=== PATIENT | male | born 1930 | race Two or more races ===

== ENCOUNTER 2016-10-04 09:30 | Emergency (ER) | payer MEDICARE ==
[~2016-10-04] VITALS: Ht 170.2 cm; Wt 101.6 kg
[2016-10-04] MEDS ORDERED: FLOM5CAP (10:03)
[2016-10-04] MEDS ORDERED: PROA1AER (10:03)
[2016-10-04] MEDS ORDERED: MECL-68 (10:03)
[2016-10-04] MEDS ORDERED: CLOP75TA2 (10:03)
[2016-10-04] MEDS ORDERED: OMEP20CA3 (10:03)
[2016-10-04] MEDS ORDERED: FURO40TA2 (10:03)
[2016-10-04] MEDS ORDERED: AMIO20TA (10:03)
[2016-10-04] MEDS ORDERED: LUTE20CA PO (10:03)
[2016-10-04] MEDS ORDERED: PRESCAP6 PO (10:03)
[2016-10-04] MEDS ORDERED: REFR0.5D8 OP (10:03)
[2016-10-04] MEDS ORDERED: NAME28CA (10:03)
[2016-10-04] MEDS ORDERED: POTA1TAB23 (10:03)
[2016-10-04] MEDS ORDERED: MELA5CHW PO (10:03)
[2016-10-04] MEDS ORDERED: ARIC10TA (10:03)
[2016-10-04] MEDS ORDERED: ATOR1TAB18 (10:03)
[2016-10-04] MEDS ORDERED: CELE1CAP7 (10:03)
[2016-10-04] MEDS ORDERED: FISH120012 PO (10:03)
[2016-10-04] MEDS ORDERED: FINA5TAB2 (10:03)
[2016-10-04] MEDS ORDERED: FLUO10CA9 (10:03)
[2016-10-04] MEDS ORDERED: OYSTER (10:03)
[2016-10-04] MEDS ORDERED: AMLO5TAB2 (10:03)
--- NOTE | 2016-10-04 10:40 | REP ---
Clinical: Trauma. Fall. Findings: Age-related atrophy and microvascular ischemic changes are appreciated. The ventricles and sulci are symmetric. Wang-white differentiation is maintained. There is no evidence for acute intracranial hemorrhage, mass/mass effect, pathology or infarction. No extra-axial fluid collection. Calvarium is intact. Paranasal sinuses and mastoid air cells are clear. Impression: Age related atrophy and microvascular ischemic changes. No acute intracranial hemorrhage, infarction, or mass/mass effect. Signed by Ezio Whitney MD 10/04/2016 10:32 A
[2016-10-04 11:19] LABS: MEAN CORPUSCULAR HEMOGLOBIN 33.1 pg (27.0-33.0); MEAN CORPUSCULAR HGB CONC 34.9 g/dl (32.0-36.5); MEAN CORPUSCULAR VOLUME 94.9 fl (80.0-96.0); PLATELET COUNT, AUTOMATED 128 k/mm3 (150-450); RED CELL DISTRIBUTION WIDTH 14.1 % (11.5-14.5); WHITE BLOOD COUNT 6.1 K/mm3 (4.0-10.0)
[2016-10-04 11:32] LABS: ANION GAP 4 MEQ/L (8-16); BLOOD UREA NITROGEN 20 MG/DL (7-18); CALCIUM LEVEL 7.9 MG/DL (8.8-10.2); CARBON DIOXIDE LEVEL 30 MEQ/L (21-32); CHLORIDE LEVEL 106 MEQ/L (98-107); CREATININE FOR GFR 1.14 MG/DL (0.70-1.30); GLOMERULAR FILTRATION RATE > 60.0 (>35); GLUCOSE, FASTING 126 MG/DL (83-110); POTASSIUM SERUM 4.4 MEQ/L (3.5-5.1); SODIUM LEVEL 140 MEQ/L (136-145)
[2016-10-04 11:49] LABS: BANDS 2 % (< 11); EOSINOPHILS 1 % (0-5)
[2016-10-04 11:50] LABS: ANISOCYTOSIS 1+
--- NOTE | 2016-10-04 12:18 | REP ---
Clinical: Chest pain . Comparison: None . Findings: Evidence of prior sternotomy. The mediastinum and cardiac silhouette are stable and within normal limits for portable technique. The lung coley are clear without acute consolidation, effusion, or pneumothorax. Skeletal structures are intact. Impression: No acute cardiopulmonary process appreciated. Signed by Ezio Whitney MD 10/04/2016 12:10 P
--- NOTE | 2016-10-04 12:19 | ECGEPIP ---
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
[2016-10-04 12:39] VITALS: BP 147/76
== END 2016-10-04 13:10 | disposition home or self-care (01) ==
LOC: EDBD 09:30 → M ED 10:24
DX: D69.6 Thrombocytopenia, unspecified (principal); W18.09XA Striking against other object with subsequent fall, initial encounter; Y92.129 Unspecified place in nursing home as the place of occurrence of the external cause; Y93.89 Activity, other specified; Y99.9 Unspecified external cause status; I65.23 Occlusion and stenosis of bilateral carotid arteries; I71.4 Abdominal aortic aneurysm, without rupture; Z86.73 Personal history of transient ischemic attack (TIA), and cerebral infarction without residual deficits; Z79.02 Long term (current) use of antithrombotics/antiplatelets; Z79.1 Long term (current) use of non-steroidal anti-inflammatories (NSAID); Z79.899 Other long term (current) drug therapy

== ENCOUNTER → 2016-10-15 | Outpatient (REF) | payer MEDICARE ==
[~2016-10-15] MED LIST: AMIO20TA; AMLO5TAB2; ARIC10TA; ATOR1TAB18; CELE1CAP7; CLOP75TA2; FINA5TAB2; FISH120012 PO; FLOM5CAP; FLUO10CA9; FURO40TA2; LUTE20CA PO; MECL-68; MELA5CHW PO; NAME28CA; OMEP20CA3; OYSTER; POTA1TAB23; PRESCAP6 PO; PROA1AER; REFR0.5D8 OP
[2016-10-15 11:15] LABS: MEAN CORPUSCULAR HEMOGLOBIN 32.9 pg (27.0-33.0); MEAN CORPUSCULAR HGB CONC 34.5 g/dl (32.0-36.5); MEAN CORPUSCULAR VOLUME 95.4 fl (80.0-96.0); PLATELET COUNT, AUTOMATED 131 k/mm3 (150-450); RED CELL DISTRIBUTION WIDTH 14.3 % (11.5-14.5); WHITE BLOOD COUNT 4.4 K/mm3 (4.0-10.0)
[2016-10-15 11:36] LABS: ALBUMIN 3.1 GM/DL (3.2-5.2); CALCIUM LEVEL 8.3 MG/DL (8.8-10.2); CREATININE FOR GFR 1.24 MG/DL (0.70-1.30); GLOMERULAR FILTRATION RATE 58.8 (>35); POTASSIUM SERUM 4.1 MEQ/L (3.5-5.1); TOTAL PROTEIN 6.2 GM/DL (6.4-8.2)
[2016-10-15 11:47] LABS: EOSINOPHILS 1 % (0-5)
[2016-10-15 11:48] LABS: ANISOCYTOSIS 1+
== END ==
PROVIDERS: ATTEND Physician Assistant
DX: E78.5 Hyperlipidemia, unspecified (principal); I10 Essential (primary) hypertension; F32.9 Major depressive disorder, single episode, unspecified

== ENCOUNTER → 2016-11-12 | Outpatient (CLI) | payer MEDICARE ==
--- NOTE | 2016-11-12 10:03 | REP ---
Abdominal aortic sonography: History: Abdominal aortic aneurysm without rupture. No comparison imaging. History of abdominal aneurysm measuring 3.[address] Sonographic findings: Exam quality is inhibited by patient body habitus and bowel gas. The abdominal aorta measures 2.6 x 2.8 cm in AP by transverse dimension respectively at the diaphragmatic hiatus. The aorta was obscured at the level of the renal artery origins. The infrarenal abdominal aorta is aneurysmally dilated measuring 3.1 x 3.6 cm in AP by transverse dimension respectively at mid aortic level. The distal aorta measures 1.8 x 2.4 cm. The common iliac arteries are not aneurysmal measuring 0.7 cm in AP dimension on each side. Impression: Infrarenal abdominal aortic aneurysm measuring 3.1 x 3.6 cm in AP by transverse dimension today. The aorta is obscured by bowel gas at the level of the renal arteries on today's study. Signed by Dimitrios Leung MD 11/12/2016 12:17 P
== END ==
LOC: M RAD 08:43
PROVIDERS: ATTEND Physician Assistant
DX: I71.4 Abdominal aortic aneurysm, without rupture (principal); I71.2 Thoracic aortic aneurysm, without rupture

== ENCOUNTER → 2016-12-10 | Outpatient (REF) | payer MEDICARE ==
[~2016-12-10] MED LIST changes: +AMIO200T; -AMIO20TA; -ARIC10TA; +ARIC1TAB2; -ATOR1TAB18; +ATOR80TA59; -MELA5CHW PO; +MELA5TAB20 PO; -PROA1AER; +PROAAER10
[2016-12-10 12:50] LABS: BLOOD UREA NITROGEN 22 MG/DL (7-18); GLOMERULAR FILTRATION RATE > 60.0 (>35)
== END ==
PROVIDERS: ATTEND Psychiatry & Neurology Neurology
DX: N18.9 Chronic kidney disease, unspecified (principal)

== ENCOUNTER → 2017-01-03 | Outpatient (REF) | payer MEDICARE | LOC: M LAB REF 12:45 | PROVIDERS: ATTEND Physician Assistant | DX: R19.5 Other fecal abnormalities (principal) ==

== ENCOUNTER → 2017-03-14 | Outpatient (CLI) | payer MEDICARE ==
--- NOTE | 2017-03-14 16:45 | REP ---
Chest x-ray: Two views: History: Shortness of breath. Comparison chest x-ray October 04, 2016. Findings: Median sternotomy wires and cardiac monitoring device are noted anteriorly. Heart is not felt to be enlarged. Pulmonary vasculature is not increased. Pleural angles are sharp. There are degenerative changes in the thoracic spine and the thoracic aorta as before. Impression: No acute disease. Prior sternotomy. Signed by Dimitrios Leung MD 03/14/2017 07:18 P
== END ==
LOC: M RAD 14:29
PROVIDERS: ATTEND Family Medicine
DX: R06.02 Shortness of breath (principal); Z98.890 Other specified postprocedural states
CPT/HCPCS: 71020; G0463

== ENCOUNTER 2017-07-14 11:28 | Inpatient (IN) | payer MEDICARE ==
[2017-07-14] MEDS: NS 500 ML IV (11:45)
[2017-07-14 11:48] LABS: BASO % 0.2 % (0.0-1.0); EOS # 0.1 10^3/uL (0.0-0.50); EOS % 1.5 % (0.0-3.0); HEMATOCRIT 42.1 % (42.0-52.0); HEMOGLOBIN 14.1 g/dl (14.0-18.0); LYMPH % 18.3 % (24.0-44.0); MEAN CORPUSCULAR HEMOGLOBIN 31.7 pg (27.0-33.0); MEAN CORPUSCULAR HGB CONC 33.5 g/dl (32.0-36.5); MEAN CORPUSCULAR VOLUME 94.6 fl (80.0-96.0); MONO # 1.7 10^3/uL (0.0-0.8); MONO % 33.3 % (0.0-5.0); NEUTROPHILS # 2.4 10^3/uL (1.8-7.7); NEUTROPHILS % 46.7 % (36.0-66.0); PLATELET COUNT, AUTOMATED 139 10^3/uL (150-450); RED BLOOD COUNT 4.45 10^6/uL (4.30-6.10); RED CELL DISTRIBUTION WIDTH 15.9 % (11.5-14.5); WHITE BLOOD COUNT 5.2 10^3/uL (4.0-10.0)
[2017-07-14 12:15] LABS: ANION GAP 6 MEQ/L (8-16); BLOOD UREA NITROGEN 23 MG/DL (7-18); CALCIUM LEVEL 8.3 MG/DL (8.8-10.2); CARBON DIOXIDE LEVEL 29 MEQ/L (21-32); CHLORIDE LEVEL 108 MEQ/L (98-107); CK-MB VALUE MASS 3.5 NG/ML (0.0-3.6); CPK CREATINE PHOSPHOKINASE 180 U/L (39-308); CREATININE FOR GFR 1.62 MG/DL (0.70-1.30); GLOMERULAR FILTRATION RATE 43.1 (>35); GLUCOSE, FASTING 100 MG/DL (70-100); MB/CK RELATIVE INDEX 1.94 (< OR =4); POTASSIUM SERUM 4.2 MEQ/L (3.5-5.1); SODIUM LEVEL 143 MEQ/L (136-145); TROPONIN I < 0.02 NG/ML (< 0.10)
[2017-07-14 12:25] LABS: INR 1.09; PROTHROMBIN TIME 14.3 SECONDS (12.4-14.5)
[2017-07-14 12:26] LABS: PARTIAL THROMBOPLASTIN TIME 30.6 SECONDS (26.8-37.9)
[2017-07-14] MEDS ORDERED: ONDANSETRON 4MG/2ML VIAL (J2405) IV (13:30)
[2017-07-14] MEDS: ACETAMINOPHEN TAB 650MG DOSE (2X325MG) PO (13:55)
[2017-07-14] MEDS ORDERED: IPRATROPIUM 0.5MG/ALBUTEROL 2.5MG INH SOL UD 3ML (DUONEB)(J7620) NEB (14:00)
[2017-07-14] MEDS ORDERED: LOPERAMIDE 2 MG CAP PO (14:00)
[2017-07-14] MEDS: HEPARIN SOD (PORCINE) 5000 UNITS/ML VIAL SC ×2 (15:30→21:59)
[2017-07-14] MEDS: MECLIZINE 25 MG TABLET PO (21:58)
[2017-07-14] MEDS: SERTRALINE HCL 25 MG TABLET PO (21:58)
[2017-07-14] MEDS: LACRILUBE (AKWA TEARS) OPHTH OINT 3.5 GM OU (21:59)
[2017-07-14] MEDS: DONEPEZIL 5 MG TAB PO (21:59)
[2017-07-14] MEDS: ATORVASTATIN 20 MG TAB PO (21:59)
[2017-07-15] MEDS: ADVAIR HFA 115/21MCG INHALER INH ×3 (00:23→21:15)
[2017-07-15] MEDS: HEPARIN SOD (PORCINE) 5000 UNITS/ML VIAL SC ×3 (06:07→21:22)
[2017-07-15 07:00] LABS: HEMATOCRIT 39.5 % (42.0-52.0); HEMOGLOBIN 13.3 g/dl (14.0-18.0); MEAN CORPUSCULAR HEMOGLOBIN 31.2 pg (27.0-33.0); MEAN CORPUSCULAR HGB CONC 33.7 g/dl (32.0-36.5); MEAN CORPUSCULAR VOLUME 92.7 fl (80.0-96.0); PLATELET COUNT, AUTOMATED 115 10^3/uL (150-450); RED BLOOD COUNT 4.26 10^6/uL (4.30-6.10); RED CELL DISTRIBUTION WIDTH 15.6 % (11.5-14.5); WHITE BLOOD COUNT 4.6 10^3/uL (4.0-10.0)
[2017-07-15 07:14] LABS: ANION GAP 9 MEQ/L (8-16); BLOOD UREA NITROGEN 22 MG/DL (7-18); CARBON DIOXIDE LEVEL 25 MEQ/L (21-32); CHLORIDE LEVEL 110 MEQ/L (98-107); CREATININE FOR GFR 1.14 MG/DL (0.70-1.30); GLOMERULAR FILTRATION RATE > 60.0 (>35); GLUCOSE, FASTING 92 MG/DL (70-100); MAGNESIUM LEVEL 2.2 MG/DL (1.8-2.4); SODIUM LEVEL 144 MEQ/L (136-145)
[2017-07-15] MEDS: CLOPIDOGREL 75 MG TAB PO (09:15)
[2017-07-15] MEDS: TAMSULOSIN 0.4 MG CAP PO (09:15)
[2017-07-15] MEDS: AMIODARONE 200 MG TAB (PACERONE) PO (09:15)
[2017-07-15] MEDS: MULTIVITAMINS/MINERALS THERAP 1 TAB PO (09:15)
[2017-07-15] MEDS: MEMANTINE 5MG TABLET (NAMENDA) PO (09:15)
[2017-07-15] MEDS: FINASTERIDE 5 MG TAB PO (09:15)
[2017-07-15] MEDS: FAMOTIDINE 20 MG TAB PO (09:15)
[2017-07-15] MEDS: MECLIZINE 25 MG TABLET PO ×2 (09:15→21:23)
[2017-07-15] MEDS: ASPIRIN 81 MG ENTERIC TAB PO (14:10)
[2017-07-15] MEDS: SERTRALINE HCL 25 MG TABLET PO (21:22)
[2017-07-15] MEDS: DONEPEZIL 5 MG TAB PO (21:22)
[2017-07-15] MEDS: ATORVASTATIN 20 MG TAB PO (21:23)
[2017-07-15] MEDS: LACRILUBE (AKWA TEARS) OPHTH OINT 3.5 GM OU (21:24)
[2017-07-16 05:48] LABS: HEMATOCRIT 38.7 % (42.0-52.0); HEMOGLOBIN 12.9 g/dl (14.0-18.0); MEAN CORPUSCULAR HGB CONC 33.3 g/dl (32.0-36.5); PLATELET COUNT, AUTOMATED 122 10^3/uL (150-450); RED BLOOD COUNT 4.16 10^6/uL (4.30-6.10); RED CELL DISTRIBUTION WIDTH 15.5 % (11.5-14.5); WHITE BLOOD COUNT 4.6 10^3/uL (4.0-10.0)
[2017-07-16] MEDS: HEPARIN SOD (PORCINE) 5000 UNITS/ML VIAL SC ×3 (05:56→22:21)
[2017-07-16 06:17] LABS: ANION GAP 7 MEQ/L (8-16); BLOOD UREA NITROGEN 20 MG/DL (7-18); CALCIUM LEVEL 7.8 MG/DL (8.8-10.2); CARBON DIOXIDE LEVEL 25 MEQ/L (21-32); CHLORIDE LEVEL 113 MEQ/L (98-107); CREATININE FOR GFR 0.95 MG/DL (0.70-1.30); GLOMERULAR FILTRATION RATE > 60.0 (>35); GLUCOSE, FASTING 93 MG/DL (70-100); MAGNESIUM LEVEL 2.1 MG/DL (1.8-2.4); SODIUM LEVEL 145 MEQ/L (136-145)
[2017-07-16] MEDS: ADVAIR HFA 115/21MCG INHALER INH ×2 (07:31→21:00)
[2017-07-16] MEDS: CLOPIDOGREL 75 MG TAB PO (08:11)
[2017-07-16] MEDS: MULTIVITAMINS/MINERALS THERAP 1 TAB PO (08:11)
[2017-07-16] MEDS: TAMSULOSIN 0.4 MG CAP PO (08:11)
[2017-07-16] MEDS: MEMANTINE 5MG TABLET (NAMENDA) PO (08:11)
[2017-07-16] MEDS: AMIODARONE 200 MG TAB (PACERONE) PO (08:12)
[2017-07-16] MEDS: FAMOTIDINE 20 MG TAB PO (08:12)
[2017-07-16] MEDS: ASPIRIN 81 MG ENTERIC TAB PO (08:12)
[2017-07-16] MEDS: FINASTERIDE 5 MG TAB PO (08:12)
[2017-07-16] MEDS: MECLIZINE 25 MG TABLET PO ×2 (08:12→22:12)
[2017-07-16] MEDS ORDERED: SLF 3 ML SYR IV (08:15)
[2017-07-16] MEDS ORDERED: ISOVUE-370 76% 100ML VIAL (Q9967) As Ordered (13:39)
[2017-07-16] MEDS: SLF 3 ML SYR IV ×2 (14:00→22:13)
[2017-07-16] MEDS: NS 1,000 ML IV (14:06)
[2017-07-16] MEDS: DONEPEZIL 5 MG TAB PO (22:12)
[2017-07-16] MEDS: SERTRALINE HCL 25 MG TABLET PO (22:12)
[2017-07-16] MEDS: ATORVASTATIN 20 MG TAB PO (22:12)
[2017-07-16] MEDS: LACRILUBE (AKWA TEARS) OPHTH OINT 3.5 GM OU (22:13)
[2017-07-16] MEDS: ACETAMINOPHEN TAB 650MG DOSE (2X325MG) PO (22:13)
[2017-07-17] MEDS: SLF 3 ML SYR IV (05:08)
[2017-07-17 05:48] LABS: HEMATOCRIT 37.1 % (42.0-52.0); HEMOGLOBIN 12.5 g/dl (14.0-18.0); MEAN CORPUSCULAR HEMOGLOBIN 31.4 pg (27.0-33.0); MEAN CORPUSCULAR HGB CONC 33.7 g/dl (32.0-36.5); MEAN CORPUSCULAR VOLUME 93.2 fl (80.0-96.0); PLATELET COUNT, AUTOMATED 112 10^3/uL (150-450); RED BLOOD COUNT 3.98 10^6/uL (4.30-6.10); RED CELL DISTRIBUTION WIDTH 15.4 % (11.5-14.5); WHITE BLOOD COUNT 4.8 10^3/uL (4.0-10.0)
[2017-07-17 06:04] LABS: ANION GAP 6 MEQ/L (8-16); BLOOD UREA NITROGEN 16 MG/DL (7-18); CALCIUM LEVEL 7.7 MG/DL (8.8-10.2); CARBON DIOXIDE LEVEL 27 MEQ/L (21-32); CHLORIDE LEVEL 110 MEQ/L (98-107); CREATININE FOR GFR 0.95 MG/DL (0.70-1.30); GLOMERULAR FILTRATION RATE > 60.0 (>35); GLUCOSE, FASTING 84 MG/DL (70-100); POTASSIUM SERUM 3.9 MEQ/L (3.5-5.1); SODIUM LEVEL 143 MEQ/L (136-145)
[2017-07-17] MEDS: HEPARIN SOD (PORCINE) 5000 UNITS/ML VIAL SC (06:36)
[2017-07-17] MEDS: ADVAIR HFA 115/21MCG INHALER INH (07:30)
[2017-07-17] MEDS: FAMOTIDINE 20 MG TAB PO (09:07)
[2017-07-17] MEDS: MULTIVITAMINS/MINERALS THERAP 1 TAB PO (09:07)
[2017-07-17] MEDS: ASPIRIN 81 MG ENTERIC TAB PO (09:07)
[2017-07-17] MEDS: FINASTERIDE 5 MG TAB PO (09:07)
[2017-07-17] MEDS: TAMSULOSIN 0.4 MG CAP PO (09:07)
[2017-07-17] MEDS: MEMANTINE 5MG TABLET (NAMENDA) PO (09:08)
[2017-07-17] MEDS: MECLIZINE 25 MG TABLET PO (09:08)
[2017-07-17] MEDS: CLOPIDOGREL 75 MG TAB PO (09:08)
[2017-07-17] MEDS: AMIODARONE 200 MG TAB (PACERONE) PO (09:08)
== END 2017-07-17 12:41 | DRG 68 ==
LOC: M PCU 07-15 12:10 → M ED 11:28 → M ED INP 13:23
DX: I65.21 Occlusion and stenosis of right carotid artery (principal); I12.9 Hypertensive chronic kidney disease with stage 1 through stage 4 chronic kidney disease, or unspecified chronic kidney disease; K21.9 Gastro-esophageal reflux disease without esophagitis; N18.3 Chronic kidney disease, stage 3 (moderate); N40.0 Benign prostatic hyperplasia without lower urinary tract symptoms; E78.5 Hyperlipidemia, unspecified; I25.10 Atherosclerotic heart disease of native coronary artery without angina pectoris; F03.90 Unspecified dementia, unspecified severity, without behavioral disturbance, psychotic disturbance, mood disturbance, and anxiety; I48.91 Unspecified atrial fibrillation; Z79.02 Long term (current) use of antithrombotics/antiplatelets; Z79.899 Other long term (current) drug therapy; Z96.651 Presence of right artificial knee joint; Z98.49 Cataract extraction status, unspecified eye

== ENCOUNTER 2017-08-04 13:07 | Outpatient (RCR) | payer MEDICARE | END 2017-08-16 | LOC: M ST 13:07 | DX: Z51.89 Encounter for other specified aftercare (principal); R47.02 Dysphasia | CPT/HCPCS: 92610 ==

== ENCOUNTER → 2018-03-18 | Outpatient (REF) | payer MEDICARE ==
[2018-03-18 12:14] LABS: ALBUMIN 3.1 GM/DL (3.2-5.2); ANION GAP 9 MEQ/L (8-16); BLOOD UREA NITROGEN 20 MG/DL (7-18); CALCIUM LEVEL 8.2 MG/DL (8.8-10.2); CARBON DIOXIDE LEVEL 28 MEQ/L (21-32); CHLORIDE LEVEL 110 MEQ/L (98-107); CREATININE FOR GFR 1.17 MG/DL (0.70-1.30); GLOMERULAR FILTRATION RATE > 60.0 (>35); GLUCOSE, FASTING 91 MG/DL (70-100); PHOSPHORUS LEVEL 3.4 MG/DL (2.5-4.9); POTASSIUM SERUM 4.3 MEQ/L (3.5-5.1); SODIUM LEVEL 147 MEQ/L (136-145)
== END ==
DX: I50.32 Chronic diastolic (congestive) heart failure (principal)
CPT/HCPCS: 80069

== ENCOUNTER 2018-04-03 19:19 | Emergency (ER) | payer MEDICARE ==
[2018-04-03 20:29] LABS: BASO % 0.1 % (0.0-1.0); EOS # 0.1 10^3/uL (0.0-0.50); EOS % 1.1 % (0.0-3.0); HEMATOCRIT 41.4 % (42.0-52.0); HEMOGLOBIN 13.8 g/dl (13.5-17.5); IMMATURE GRANULOCYTE % 0.4 % (0-3.0); LYMPH # 0.9 10^3/uL (1.5-4.5); LYMPH % 11.6 % (24.0-44.0); MEAN CORPUSCULAR HEMOGLOBIN 31.6 pg (27.0-33.0); MEAN CORPUSCULAR HGB CONC 33.3 g/dl (32.0-36.5); MEAN CORPUSCULAR VOLUME 94.7 fl (80.0-96.0); MONO % 43.8 % (0.0-5.0); NEUTROPHILS # 3.4 10^3/uL (1.8-7.7); PLATELET COUNT, AUTOMATED 132 10^3/uL (150-450); RED BLOOD COUNT 4.37 10^6/uL (4.30-6.10); RED CELL DISTRIBUTION WIDTH 16.1 % (11.5-14.5)
[2018-04-03 20:48] LABS: ANION GAP 8 MEQ/L (8-16); BLOOD UREA NITROGEN 27 MG/DL (7-18); C REACTIVE PROTEIN QUANTITATIV 4.61 MG/DL (0.00-0.30); CARBON DIOXIDE LEVEL 27 MEQ/L (21-32); CHLORIDE LEVEL 108 MEQ/L (98-107); CREATININE FOR GFR 1.28 MG/DL (0.70-1.30); GLOMERULAR FILTRATION RATE 56.5 (>35); GLUCOSE, FASTING 134 MG/DL (70-100); POTASSIUM SERUM 3.8 MEQ/L (3.5-5.1); SODIUM LEVEL 143 MEQ/L (136-145)
[2018-04-03 20:49] LABS: MONO # 3.5 10^3/uL (0.0-0.8)
[2018-04-03 20:50] LABS: POSITIVE DIFF POS FLAG
[2018-04-03 20:54] LABS: ERYTHROCYTE SEDIMENTATION RATE 35 mm/hr (0-30)
[2018-04-03] MEDS: KETOROLAC 60 MG/2 ML VIAL (J1885) IM (21:29)
== END 2018-04-03 23:42 | disposition home or self-care (01) ==
LOC: M ED 19:19
DX: M70.62 Trochanteric bursitis, left hip (principal); I11.0 Hypertensive heart disease with heart failure; I50.9 Heart failure, unspecified; I48.91 Unspecified atrial fibrillation; F03.90 Unspecified dementia, unspecified severity, without behavioral disturbance, psychotic disturbance, mood disturbance, and anxiety; N40.0 Benign prostatic hyperplasia without lower urinary tract symptoms; F33.9 Major depressive disorder, recurrent, unspecified; M48.00 Spinal stenosis, site unspecified; Z86.73 Personal history of transient ischemic attack (TIA), and cerebral infarction without residual deficits; Z79.899 Other long term (current) drug therapy; Z79.82 Long term (current) use of aspirin
CPT/HCPCS: J1885

== ENCOUNTER 2018-04-28 03:48 | Emergency (ER) | payer MEDICARE, SELFPAY ==
[~2018-04-28 03:48] MED LIST changes: +ACET-683 PO; +ACET1TAB55 PO; +ADVA115A INH; +AMIO200T PO; -AMLO5TAB2; +AMLO5TAB6; +ASPI81TAEC PO; +DONETAB6 PO; +FINA5TAB2 PO; +FLOM0.4C39; +FLOM0.4C39 PO; -FLOM5CAP; +FURO20TA2 PO; +IMOD2TAB16 PO; +LIPI80TA PO; +LUTE20TA PO; +MECL1CHW2 PO; +MELA5TAB17 PO; +META48.54 PO; +NAME28CA PO; +OPTI0.5D5 OU; +OYSCTAB3 PO; +PERI2TAB PO; +PLAV1TAB2 PO; +POTA10TA16 PO; +PROAAER10 INH; +RANI300T PO; +SERT25TA88 PO; +SYST1SOL OU; +SYSTOIN OU; +VITMTA PO
[2018-04-28 03:53] VITALS: BP 163/77
[2018-04-28] MEDS ORDERED: ADV100INH INH (04:07)
== END 2018-04-28 04:58 | disposition home or self-care (01) ==
LOC: EDBD 03:48 → M ED 03:48
DX: K00.6 Disturbances in tooth eruption (principal); I10 Essential (primary) hypertension; E78.5 Hyperlipidemia, unspecified; F32.9 Major depressive disorder, single episode, unspecified; I25.10 Atherosclerotic heart disease of native coronary artery without angina pectoris; I48.91 Unspecified atrial fibrillation; Z79.899 Other long term (current) drug therapy; Z86.73 Personal history of transient ischemic attack (TIA), and cerebral infarction without residual deficits

== ENCOUNTER 2018-05-19 22:00 | Emergency (ER) | payer MEDICARE ==
[~2018-05-19] VITALS: Ht 175.3 cm; Wt 104.5 kg
[~2018-05-19 22:00] MED LIST changes: +ADV100INH INH
[2018-05-19] MEDS ORDERED: ACET1TAB55 PO (22:36)
[2018-05-19] MEDS ORDERED: TRAZ-160 PO (22:36)
[2018-05-19] MEDS ORDERED: PSYLPOW4 PO (22:36)
[2018-05-19] MEDS ORDERED: FURO40TA2 PO (22:36)
[2018-05-19] MEDS ORDERED: NAME10TA PO (22:36)
[2018-05-19] MEDS ORDERED: ASPI81TAEC PO (22:36)
[2018-05-19 23:13] LABS: BASO % 0.2 % (0.0-1.0); EOS # 0.2 10^3/uL (0.0-0.50); EOS % 2.5 % (0.0-3.0); HEMATOCRIT 39.1 % (42.0-52.0); HEMOGLOBIN 12.8 g/dl (13.5-17.5); LYMPH # 0.9 10^3/uL (1.5-4.5); LYMPH % 15.6 % (24.0-44.0); MEAN CORPUSCULAR HEMOGLOBIN 31.1 pg (27.0-33.0); MEAN CORPUSCULAR HGB CONC 32.7 g/dl (32.0-36.5); MEAN CORPUSCULAR VOLUME 95.1 fl (80.0-96.0); MONO % 42.1 % (0.0-5.0); NEUTROPHILS # 2.4 10^3/uL (1.8-7.7); NEUTROPHILS % 39.4 % (36.0-66.0); PLATELET COUNT, AUTOMATED 150 10^3/uL (150-450); RED BLOOD COUNT 4.11 10^6/uL (4.30-6.10)
--- NOTE | 2018-05-19 23:25 | REPVR ---
EXAM: CT Head Without Contrast EXAM DATE/TIME: 05/19/2018 10:43 PM CLINICAL HISTORY: 87 years old, male; Injury or trauma; Fall TECHNIQUE: Axial computed tomography images of the head/brain without contrast. All CT scans at this facility use at least one of these dose optimization techniques: automated exposure control; mA and/or kV adjustment per patient size (includes targeted exams where dose is matched to clinical indication); or iterative reconstruction. COMPARISON: CT Head without contrast 07/14/2017 11:43 AM FINDINGS: Brain: Prominence of the cerebral sulci consistent with mild atrophy. There is a 1 cm area of low density with associated atrophy right frontal lobe consistent with an area of old ischemic change. This is similar to the examination of 07/14/2017. Ventricles: Normal appearing ventricles. Bones/joints: There is no evidence of fracture. Sinuses: Clear paranasal sinuses. Mastoid air cells: Clear mastoid air cells. Soft tissues: Normal. Vasculature: There is calcification of the carotid siphon bilaterally. IMPRESSION: 1. Chronic ischemic changes. 2. No evidence of acute bleed. Electronically signed by: Ángel Coronel On 05/19/2018 23:24:54 PM
--- NOTE | 2018-05-19 23:37 | REPVR ---
EXAM: CT Cervical Spine Without Contrast EXAM DATE/TIME: 05/19/2018 10:43 PM CLINICAL HISTORY: 87 years old, male; Injury or trauma; Fall; Initial encounter; Blunt trauma TECHNIQUE: Axial computed tomography images of the cervical spine without intravenous contrast. All CT scans at this facility use at least one of these dose optimization techniques: automated exposure control; mA and/or kV adjustment per patient size (includes targeted exams where dose is matched to clinical indication); or iterative reconstruction. Coronal and sagittal reformatted images were created and reviewed. COMPARISON: No relevant prior studies available. FINDINGS: Vertebrae: The dens appears intact and the lateral masses of C1 appear symmetric. Discs/Spinal canal/Neural foramina: There is severe narrowing of the C4-C5, C5-C6, C6-C7 disc space and prominent posterior osteophyte formation at each level. There is severe osteophyte formation right and left C5, C6 and C7 neural foramina. Because of osteophyte formation there is central spinal canal stenosis C5-C6 and C6-C7. If there is any concern for injury to the cord an MRI scan would be a more sensitive indicator. There is prominent calcification and atherosclerotic plaque formation right and left carotid bifurcation. Soft tissues: There is no evidence of soft tissue swelling. IMPRESSION: 1. No evidence of acute fracture. 2. There is severe posterior osteophyte formation C4 through C7 causing significant impression on the cervical cord. If there is any concern of injury to the cord an MRI scan would be a more sensitive indicator. Electronically signed by: Ángel Coronel On 05/19/2018 23:37:14 PM
[2018-05-19 23:39] LABS: BLOOD UREA NITROGEN 24 MG/DL (7-18); CARBON DIOXIDE LEVEL 30 MEQ/L (21-32); CHLORIDE LEVEL 107 MEQ/L (98-107); CPK CREATINE PHOSPHOKINASE 162 U/L (39-308); CREATININE FOR GFR 1.38 MG/DL (0.70-1.30); FREE T4 1.28 NG/DL (0.76-1.46); GLOMERULAR FILTRATION RATE 51.8 (>35); GLUCOSE, FASTING 117 MG/DL (70-100); POTASSIUM SERUM 3.5 MEQ/L (3.5-5.1); SODIUM LEVEL 145 MEQ/L (136-145); TROPONIN I < 0.02 NG/ML (< 0.10)
[2018-05-19 23:41] LABS: INR 1.1; PROTHROMBIN TIME 14.3 SECONDS (12.1-14.4)
[2018-05-19 23:42] LABS: PARTIAL THROMBOPLASTIN TIME 31.4 SECONDS (25.4-37.6)
[2018-05-19 23:49] LABS: MONO # 2.5 10^3/uL (0.0-0.8)
[2018-05-20 00:15] VITALS: BP 147/65
--- NOTE | 2018-05-20 08:10 | REP ---
Clinical: Acute chest pain . Comparison: 07/14/2017 . Technique: PA and lateral. Findings: The mediastinum and cardiac silhouette are normal. The lung coley demonstrate chronic-appearing interstitial changes without acute consolidation, effusion, or pneumothorax. The skeletal structures are intact and normal. Evidence for prior sternotomy. Impression: Chronic-appearing interstitial changes. The colon Electronically Signed by Ezio Whitney MD 05/20/2018 08:01 A
--- NOTE | 2018-05-23 07:40 | ECGEPIP ---
Stationary ECG Study [facility] - ED Test Date: 2018-05-19 Pat Name: GIL SANTIAGO Department: Room: - Gender: M Vp Foundation: af : 1930 Requested By: NELLY Garcia Order Number: [id number] Reading MD: Mc Guzman Measurements Intervals [place] Rate: 79 P: MT: 0 QRS: -62 QRSD: 152 T: 89 QT: 432 QTc: 497 Interpretive Statements SINUS RHYTHM WITH OCCASIONAL ATRIAL AND VENTRICULAR PREMATURE COMPLEXES INTRAVENTRICULAR CONDUCTION DELAY SIMILAR TO 07/14/17 Electronically Signed On 05-23-2018 7:40:18 EST by Mc Guzman
== END 2018-05-20 00:50 | disposition home or self-care (01) ==
LOC: M ED 22:00 → EDBD 22:00 → M ED 05-20 00:50
DX: S09.90XA Unspecified injury of head, initial encounter (principal); W19.XXXA Unspecified fall, initial encounter; Y92.10 Unspecified residential institution as the place of occurrence of the external cause; Z79.01 Long term (current) use of anticoagulants; I48.91 Unspecified atrial fibrillation; I25.10 Atherosclerotic heart disease of native coronary artery without angina pectoris; I10 Essential (primary) hypertension; J45.909 Unspecified asthma, uncomplicated; F17.210 Nicotine dependence, cigarettes, uncomplicated; G30.9 Alzheimer's disease, unspecified; Z86.73 Personal history of transient ischemic attack (TIA), and cerebral infarction without residual deficits

== ENCOUNTER → 2018-06-10 | Outpatient (REF) | payer MEDICARE ==
[~2018-06-10] MED LIST changes: +FURO40TA2 PO; +NAME10TA PO; +PSYLPOW4 PO; +TRAZ-160 PO
[2018-06-10 10:31] LABS: BILIRUBIN,DIRECT 0.3 MG/DL (0.0-0.2); BILIRUBIN,TOTAL 0.9 MG/DL (0.2-1.0); TOTAL PROTEIN 6.6 GM/DL (6.4-8.2)
== END ==
PROVIDERS: ATTEND Physician Assistant
DX: I48.91 Unspecified atrial fibrillation (principal)

== ENCOUNTER → 2018-06-19 | Outpatient (REF) | payer MEDICARE ==
[2018-06-19 18:42] LABS: ALBUMIN 3.1 GM/DL (3.2-5.2); ALT/SGPT 30 U/L (12-78); BILIRUBIN,TOTAL 0.7 MG/DL (0.2-1.0); BLOOD UREA NITROGEN 21 MG/DL (7-18); CALCIUM LEVEL 8.1 MG/DL (8.8-10.2); CARBON DIOXIDE LEVEL 27 MEQ/L (21-32); CHLORIDE LEVEL 109 MEQ/L (98-107); CREATININE FOR GFR 1.21 MG/DL (0.70-1.30); GLOMERULAR FILTRATION RATE > 60.0 (>35); GLUCOSE, FASTING 106 MG/DL (70-100); POTASSIUM SERUM 4.3 MEQ/L (3.5-5.1); SODIUM LEVEL 144 MEQ/L (136-145); TOTAL PROTEIN 6.6 GM/DL (6.4-8.2)
== END ==
LOC: M SFHCPLAZ 16:09
PROVIDERS: ATTEND Physician Assistant
DX: I95.1 Orthostatic hypotension (principal); W19.XXXD Unspecified fall, subsequent encounter; Y99.8 Other external cause status
CPT/HCPCS: 36415; 80053; G0463

== ENCOUNTER → 2018-06-22 | Outpatient (REF) | payer MEDICARE ==
[2018-06-22 22:30] LABS: APPEARANCE, URINE CLEAR (CLEAR); BACTERIA, URINE AUTO NEGATIVE (NEGATIVE); BILIRUBIN, URINE AUTO NEGATIVE (NEGATIVE); BLOOD, URINE BLOOD NEGATIVE (NEGATIVE); COLOR, URINE YELLOW (YELLOW); GLUCOSE, URINE (UA) AUTO NEGATIVE (NEGATIVE); KETONE, URINE AUTO NEGATIVE (NEGATIVE); LEUKOCYTE ESTERASE, URINE AUTO NEGATIVE (NEGATIVE); MUCUS, URINE SMALL (NEGATIVE); NITRITE, URINE AUTO NEGATIVE (NEGATIVE); PROTEIN, URINE AUTO NEGATIVE (NEGATIVE); RBC, URINE AUTO 1 /HPF (0-3); SPECIFIC GRAVITY URINE AUTO 1.013 (1.002-1.035); SQUAMOUS EPITHELIAL CELL UR AU 0 /HPF (0-6); UROBILINOGEN, URINE AUTO 0.2 mg/dL (0.0-2.0); WBC, URINE AUTO 1 /HPF (0-3)
== END ==
PROVIDERS: ATTEND Internal Medicine Nephrology
DX: R41.82 Altered mental status, unspecified (principal)

== ENCOUNTER → 2018-09-09 | Outpatient (CLI) | payer MEDICARE ==
[~2018-09-09] MED LIST changes: +MECL1CHW PO; -MECL1CHW2 PO
--- NOTE | 2018-09-09 14:17 | REP ---
Chest two views HISTORY: Dyspnea Comparison: 06/09/2018 The lungs are clear. The heart is upper limits of normal in size. The pulmonary vasculature is normal in appearance. Degenerative change is present in the thoracic spine. IMPRESSION: No acute disease. Electronically Signed by Nazario Mccarthy MD 09/09/2018 02:08 P
== END ==
LOC: M SMT 13:23
PROVIDERS: ATTEND Physician Assistant
DX: M51.34 Other intervertebral disc degeneration, thoracic region (principal); R06.00 Dyspnea, unspecified

== ENCOUNTER → 2018-10-16 | Outpatient (CLI) | payer MEDICARE ==
[~2018-10-16] MED LIST changes: -TRAZ-160 PO; +TRAZ-252 PO
[2018-10-16 14:56] LABS: CALCIUM LEVEL 8.2 MG/DL (8.8-10.2); CREATININE FOR GFR 1.32 MG/DL (0.70-1.30); GLOMERULAR FILTRATION RATE 54.5 (>35); POTASSIUM SERUM 4.1 MEQ/L (3.5-5.1)
== END ==
LOC: M SMT 12:09
PROVIDERS: ATTEND Family Medicine
DX: R05 Cough (principal)

== ENCOUNTER 2018-11-27 12:50 | Inpatient (IN) | payer MEDICARE ==
[~2018-11-27] VITALS: Ht 170.2 cm; Wt 106.7 kg
[~2018-11-27 12:50] MED LIST changes: -MELA5TAB17 PO; +MELA5TAB31 PO; -OMEP20CA3; +OMEP20CA4
[2018-11-27] MEDS ORDERED: CETI10TA4 PO (13:48)
[2018-11-27] MEDS ORDERED: FLON1SPR (13:48)
[2018-11-27] MEDS ORDERED: TESS100C PO (13:48)
[2018-11-27] MEDS ORDERED: PRES10CA2 PO (13:48)
[2018-11-27] MEDS ORDERED: LOPE2TAB11 PO (13:48)
[2018-11-27] MEDS ORDERED: LUTE20CA8 PO (13:48)
[2018-11-27] MEDS ORDERED: BREO1INH INH (13:48)
--- NOTE | 2018-11-27 14:07 | REP ---
CT brain without contrast: History: Altered mental status. Comparison CT study is from October 01, 2018. CT findings: Digital preliminary ldr rn radiograph is unremarkable. On bone window settings, there is mild motion artifact. No bony destructive lesion is seen. No evidence of fracture. There is prominent vascular calcification in the distal carotid arteries bilaterally. Visualized paranasal sinuses are clear. No intraorbital abnormality is seen. There is moderate diffuse cerebral atrophy. There is no evidence of intracranial hemorrhage. There is a small zone of encephalomalacia in the right posterior frontal lobe again seen consistent with an old infarct. There is a small old lacunar infarct in the left thalamus. This is also unchanged. No acute infarction is seen. No extra-axial fluid collection or mass lesion . 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 Diffuse atrophy and vascular calcification. No acute intracranial abnormality. Electronically Signed by Dimitrios Leung MD 11/27/2018 08:13 P
--- NOTE | 2018-11-27 14:12 | REP ---
CT STUDY OF THE CERVICAL SPINE WITHOUT CONTRAST: HISTORY: Injury in a fall. Comparison CT study May 19, 2018. TECHNIQUE: Helical scanning is acquired and overlapping 2 mm high resolution axial images were generated and reviewed at bone and soft tissue window settings. Coronal and sagittal multiplanar re-formations images are generated. CT FINDINGS: There is no evidence of cervical spine element fracture. No skull base fracture is seen. Cervical vertebral body heights are preserved. Alignment is normal. Facet joints are normally aligned bilaterally at each cervical level on multiplanar re-formations images. There is no evidence of intraspinal or paraspinal hematoma. No extra vertebral abnormality is seen. There are severe degenerative spondylosis changes in the cervical spine with reversal of the normal cervical lordosis. The discs at C5-6 and C6-7 appear to be ankylosed due to advanced degenerative disc disease. Anterior posterior osteophytic ridging is seen. Narrowing is noted C4-5 and C7-T1 discs as well. There is central canal stenosis at C4-5, C5-6. Multilevel neural foraminal narrowing is appreciated. Vascular calcification is noted. Degenerative changes are seen at the articulation between the dens and the anterior arch of C1 with dystrophic calcification. There are osteoarthritic facet changes diffusely. The findings are unchanged when compared with the May 19, [address] study[address] IMPRESSION: Advanced degenerative spondylosis changes. Otherwise negative CT study of the cervical spine without contrast. No fracture seen. Electronically Signed by Dimitrios Leung MD 11/27/2018 08:13 P
--- NOTE | 2018-11-27 14:29 | REP ---
PELVIS: AP view of the pelvis demonstrates no fracture or dislocation. There are degenerative changes of the lower lumbar spine. There are degenerative changes of the sacroiliac joints and hips as well. IMPRESSION: Degenerative changes without fracture or dislocation. Electronically Signed by Bijan Wang MD 11/30/2018 01:04 P
[2018-11-27] MEDS ORDERED: MORPHINE 2 MG/ML 1ML SYRINGE (J2270) IV ONE (14:30)
--- NOTE | 2018-11-27 14:30 | REP ---
BILATERAL HIPS: AP and frog-leg views of bilateral hips performed. No fracture or dislocation is seen. There is mild joint space narrowing, subchondral sclerosis and spurring at each hip joint. IMPRESSION: Degenerative changes without fracture or dislocation. Electronically Signed by Bijan Wang MD 11/30/2018 01:04 P
--- NOTE | 2018-11-27 14:36 | REP ---
BILATERAL FEMURS: AP and lateral views of bilateral femurs performed. No fracture or dislocation is seen bilaterally. There are degenerative changes at the hips. There is a right knee prosthesis noted which appears grossly unremarkable. There are degenerative changes at the left knee joint. IMPRESSION: No fracture or dislocation. Electronically Signed by Bijan Wang MD 11/30/2018 01:05 P
--- NOTE | 2018-11-27 14:37 | REP ---
CHEST X-RAY: Single AP view. HISTORY: Altered mental status. COMPARISON STUDY: September 09, 2018. FINDINGS: The patient is status post prior median sternotomy. Oxygen delivery tubing and EKG electrodes are seen. A loop recorder is visible. Cardiomegaly is observed. The lungs are exposed at a relatively low level of inspiration. No infiltrate is seen. There is no evidence of pleural effusion or pulmonary edema. The aorta is calcific and tortuous. IMPRESSION: Cardiomegaly, prior sternotomy. Otherwise no acute disease. Electronically Signed by Dimitrios Leung MD 11/27/2018 08:15 P
[2018-11-27 14:39] LABS: BASO % 0.3 % (0.0-1.0); EOS # 0.1 10^3/uL (0.0-0.50); EOS % 0.8 % (0.0-3.0); HEMOGLOBIN 8.7 g/dl (13.5-17.5); LYMPH # 0.4 10^3/uL (1.5-4.5); LYMPH % 5.6 % (24.0-44.0); MEAN CORPUSCULAR HEMOGLOBIN 31.5 pg (27.0-33.0); MEAN CORPUSCULAR HGB CONC 32.2 g/dl (32.0-36.5); MEAN CORPUSCULAR VOLUME 97.8 fl (80.0-96.0); MONO # 1.9 10^3/uL (0.0-0.8); MONO % 29.2 % (0.0-5.0); NEUTROPHILS # 4.2 10^3/uL (1.8-7.7); NEUTROPHILS % 63.5 % (36.0-66.0); PLATELET COUNT, AUTOMATED 161 10^3/uL (150-450); RED BLOOD COUNT 2.76 10^6/uL (4.30-6.10); WHITE BLOOD COUNT 6.6 10^3/uL (4.0-10.0)
[2018-11-27 14:48] LABS: INR 1.16; PROTHROMBIN TIME 14.5 SECONDS (11.8-14.0)
[2018-11-27] MEDS ORDERED: ISOVUE-370 76% 100ML VIAL (Q9967) As Ordered ONE (14:49)
[2018-11-27 15:09] LABS: CK-MB VALUE MASS 4.2 NG/ML (<3.6); MB/CK RELATIVE INDEX 2.44 (< OR =4); TROPONIN I 0.44 NG/ML (< 0.10)
[2018-11-27 15:17] LABS: ALBUMIN 2.6 GM/DL (3.2-5.2); BILIRUBIN,DIRECT 0.5 MG/DL (0.0-0.2); BILIRUBIN,TOTAL 1.4 MG/DL (0.2-1.0); CALCIUM LEVEL 7.5 MG/DL (8.8-10.2); CREATININE FOR GFR 1.25 MG/DL (0.70-1.30); GLOMERULAR FILTRATION RATE 57.9 (>35); MB/CK RELATIVE INDEX 2.37 (< OR =4); POTASSIUM SERUM 3.9 MEQ/L (3.5-5.1); THYROID STIMULATING HORMONE 1.31 uIU/ML (0.358-3.740); TOTAL PROTEIN 5.9 GM/DL (6.4-8.2); TROPONIN I 0.44 NG/ML (< 0.10)
--- NOTE | 2018-11-27 15:45 | REP ---
CT CHEST WITH IV CONTRAST: TECHNIQUE: Axial contrast enhanced images from the thoracic inlet to the upper abdomen using 100 mL Isovue 370 intravenous contrast material with multiplanar reformations. There is mild bibasilar atelectasis/infiltrate inferiorly in the lung coley. There are small bilateral pleural effusions. There is no evidence of mediastinal, hilar, or chest wall lymphadenopathy. Atherosclerotic calcifications are seen of the thoracic aorta without aneurysm. There is mild cardiomegaly. There is no pericardial effusion. There are degenerative changes of the spine. No fracture i seen of the visualized osseous structures. IMPRESSION: Mild patchy bibasilar atelectasis/infiltrate in the lower lung zones with small bilateral pleural effusions. Mild cardiomegaly. No other acute finding. Electronically Signed by Bijan Wang MD 11/30/2018 01:06 P
--- NOTE | 2018-11-27 15:55 | REP ---
CT ABDOMEN AND PELVIS WITH IV CONTRAST: TECHNIQUE: Axial contrast enhanced images from the lung bases to the pubic symphysis using 100 mL Isovue 370 intravenous contrast material with multiplanar reformations. Liver demonstrates no mass or hematoma. There is biliary air present as well as a small amount of air in the pancreatic duct compatible with prior biliary procedure. Spleen is unremarkable as are the adrenal glands. No pancreatic mass is seen. No renal hematoma is seen. There are left renal cysts present. There is no hydronephrosis. There is no abdominal aortic aneurysm with scattered moderate atherosclerotic calcification. I see no adenopathy. There is no free air or free fluid. No bowel thickening is seen. Scattered diverticula are seen of the colon. There is no appendicitis. Anterior abdominal mesh is present. Calcified mesenteric lymph nodes are seen in the right lower quadrant. Urinary bladder is mildly distended and grossly unremarkable. There are degenerative changes of the spine. There is no fracture of the visualized osseous structures. A superficial soft tissue hematoma is seen in the gluteal region bilaterally, but more so to the left of midline, with irregular margins, measuring approximately 10.2 x 3.3 x 17.3 cm. IMPRESSION: No acute posttraumatic abnormality in the abdomen or pelvis. No free air or free fluid. No visceral organ injury. There is a superficial subcutaneous soft tissue hematoma in the gluteal region bilaterally, but more so to the left of midline measuring 10.2 x 3.3 x 17.3 cm. No fracture is seen of the visualized osseous structures. Electronically Signed by Bijna Wang MD 11/30/2018 01:06 P
[2018-11-27] MEDS ORDERED: traZODone 50 MG TAB PO PRN (16:30)
[2018-11-27] MEDS ORDERED: MOM 30ML SUSPENSION UDC PO PRN (16:30)
[2018-11-27] MEDS ORDERED: ACETAMINOPHEN 325 MG TAB PO PRN (16:30)
[2018-11-27] MEDS ORDERED: BENZONATATE 100 MG CAP PO PRN (16:30)
[2018-11-27] MEDS ORDERED: FUROSEMIDE 100 MG/10 ML VIAL (J1940) IV ONE (16:45)
[2018-11-27] MEDS ORDERED: ACETAMINOPHEN TAB 650MG DOSE (2X325MG) PO PRN (17:00)
[2018-11-27 20:03] VITALS: BP 154/85
--- NOTE | 2018-11-27 20:40 | HPEPDOC ---
[facility] Medical History & Physical Date of Admission Nov 27, 2018 Date of Service: Nov 27, 2018 Primary Care Physician: KARI HOFFMAN MD Attending Physician: LEISA CRAFT MD History and Physical CHIEF COMPLAINT: Back and buttock pain HISTORY OF PRESENT ILLNESS: Mikal is an 88-year-old male who presents today from the [facility] with a chief complaint of back and buttock pain. He sustained a mechanical fall this past November 22 while ambulating over dirt ground with the assistance of his walker. His walker "caught" on the ground causing him to fall backwards making initial contact with his back, hip, and rear. He states his head made secondary contact after whipping back. He states that he did not lose consciousness. His son, Turner witnessed the fall at their family reunion, Turner is the patient's healthcare proxy and his contact number is [phone]. His pain on Friday was a 4 out of 10 most intense around L4 extending bilaterally across the iliac crest. He describes the pain is dull and it has remained at 4 out of 10 to presentation today. Around noon today and nursing staff member at [facility] noticed significant bruising on his lower back and rear and initiated Mikal' presentation to the ED. Upon ED presentation extensive imaging was ordered that was all unremarkable with the exception of a hematoma on abdomen/pelvis CT. The ED consulted general surgery, Dr. Cool, who decided that surgery was not warranted at this time and to continue with supportive care. Of note, obtaining verbal history from patient provided some challenges due to patient's hearing loss as well as minor speech difficulties, likely due to previous CVA. The ED also ordered initial troponis that came back negative. The hospitalist team is admitting him to monitor status, largely because of he is currently on blood thinning medication. After prior consent was obtained from the patient, the ED ordered he received 2 blood transfusions. The ED also ordered troponins that came back negative. PAST MEDICAL HISTORY: 1. DEPRESSION 2. HTN 3. CA 4. H/O TIA/CVA 5. ALZHEIMERS DEMENTIA 6. ABDOMINAL AORTIC ANEURYSM 3.6 CM, ASCENDING AORTIC ANEURYSM 4.1 CM ON IMAGING 11/2015 7. MACULULAR DEGENERATION 8. DIASTOLIC CHF 9. SPINAL STENOSIS CERVICAL 10. HYPERLIPIDEMIA 11. OSTEOARTHRITIS 12. BPH 13. PAROXYSMAL ATRIAL FIBRILLATION 14. AAA 15. REACTIVE AIRWAY DISEASE 16. CARDIAC CATH WITH 3 VESSEL CAD. MILD HYPOKINESIA OF ANTERIOR APICAL WALL WITH EF OF 50%. ECHO 12/16/15: LEFT VENTRICULAR WALL THICKNESS, MILD TO MODERATELY INCREASED. NO OBVIOUS REGIONAL WALL MOTION ABNORMALITIES, EJECTION FRACTION 64%, STAGE I DIASTOLIC DYSFUNCTION AND MODERATE 17. AORTIC STENOSIS 18. CAROTID ULTRASOUND 07/2017: SIGNIFICANT L INTERNAL CAROTID ARTERY DISEASE; OCC R INTERNAL CAROTID AT ORIGIN; 35-50% STENOSIS OF EXTERNAL CAROTIDS NOORVIK 3 VESSEL DISEASE, PATENT GRAFTS 3 OF 3 PAST SURGICAL HISTORY: 1. Total right knee replacement, 2004 2. AAA bypass, 2007 3. Hernia repair, 2008 4. Carpal tunnel, 2008 5. Colon surgery, 2008 6. Cataract surgery, 2009 7. Triple bypass. 8. Cardiac catheterization SOCIAL HISTORY: Marital status: . Resides in: [facility] Children: 7 Living Employment: Retired Tobacco use: None ETOH: Rarely Illicit drug use: None IV drug use: None FAMILY HISTORY: Father: ischemic heart disease, CAD, hypertension, hyperlipidemia, blo od clots Mother: ischemic heart disease, hypertension Siblings: Brother- ischemic heart disease; Sisters (2)kidney disease ALLERGIES: Please see below. REVIEW OF SYSTEMS: CONSTITUTIONAL: Endorses- general weakness, chills, uses walker to assist with ambulation. Denies- recent change in weight, fatigue, fever, diaphoresis. HEENT: Endorses- recurrent headache (back of head), right temporal head pain, hard of hearing, nearsightedness, rhinorrhea, occasional dysphasia (pills catch sometimes). Denies- sore throat CARDIOVASCULAR:. Denies- chest pain, palpitations. RESPIRATORY:. Endorses- shortness of breath, productive cough (white). GASTROINTESTINAL: Denies- abdominal pain, nausea, vomiting, constipation, diarrhea. GENITOURINARY:. Endorses difficulty initiating urination, poor urinary stream. Denies dysuria SKIN: Extensive ecchymosis on the lower back, buttock region as well as bilateral forearms. NEUROLOGICAL: Denies numbness, paresthesias. PSYCHIATRIC:. Denies- anxiety or depression. ENDOCRINE: Denies- having any thyroid-related issues. HOME MEDICATIONS: Please see below. PHYSICAL EXAMINATION: VITAL SIGNS: Temperature 97.3, pulse 62, respiratory rate, 16, blood pressure, 164/69, pulse oximetry, 95% % on 2 L NC. GENERAL APPEARANCE: Alert, elderly male resting comfortably on side while in bed. HEENT:. Atraumatic, normocephalic; wears eyeglasses for nearsightedness; extremely hard of hearing, prominent scab on top of right ear; nares are patent CARDIOVASCULAR:. Regular rhythm with systolic machine-like sounding murmur auscultated at the right parasternal cardiac listening post. LUNGS: Shallow breathing with prolonged expiration time, diffuse wheezing throughout respiratory cycle that is more prominent with expiration. ABDOMEN: Ecchymosis on inspection of left lower quadrant, bowel sounds normoactive, dullness to percussion of right upper quadrant and left upper quadrant with higher frequency to percussion of bilateral lower abdominal quadrants. No tenderness to light palpation of all 4 quadrants with mild tenderness to deep palpation of all 4 quadrants. MUSCULOSKELETAL: Left foot deviated more laterally with respect to right foot on inspection. With respect 5 out of 5 muscle strength testing. Right upper extremity. Left upper extremity. Right lower extremity with 4 out of 5 muscle strength testing of left lower extremity. SKIN: Significant and diffuse ecchymosis from the level of T10 to the initial tuberosity bilaterally that extends around left flank into left lower quadrant of abdomen; prominent scar over sternum as well of significant scar superior to the umbilicus on inspection EXTREMITIES: 1+ pitting edema of lower extremities bilaterally, pedal edema bilaterally Prominent nodes on distal interphalangeal joints with arthritic- appearing deformities bilaterally; 2+ radial and posterior tibial arteries bilaterally NEUROLOGICAL: Cranial nerves 3, 4 and 6- delayed eye following during extraocular motion testing. Patient's speech at times was difficult to discern/inaudible; alert and oriented to self and location PSYCHIATRIC: Appropriate mood and affect LABORATORY DATA: See below. IMAGING: Abdomen/pelvis CT with IV contrast there is a superficial subcutaneous soft tissue hematoma in the gluteal region bilaterally, but more so to the left of midline measuring 10.23.317.3 cm. No fracture seen of the visualized osseous structures. No acute posttraumatic abnormality in the abdomen or pelvis. No free air or free fluid. No visceral organ injury. Pelvis x-ray showed degenerative changes without fracture or dislocation. Hip x-ray (AP and lateral- bilateral) showed degenerative changes without fracture or dislocation Head CT showed small old cortical infarct in the right posterior frontal lobe. Old lacunar infarct of the left thalamus. Diffuse atrophy and vascular calcification. No acute intracranial abnormality. Portable chest x-ray- showed cardiomegaly, prior sternotomy. Otherwise no acute disease. Femur x-ray showed no fracture or dislocation. Chest CT showed mild patchy bibasal or atelectasis/infiltrate in the lower lung zones with small bilateral pleural effusions. Mild cardiomegaly. No other acute finding. Cervical spine CT without contrast showed advanced degenerative spondylosis changes. Otherwise, negative CT study of the cervical spine without contrast. No fracture seen. MICROBIOLOGY: Please see below. ASSESSMENT & PLAN: 1. Hematoma likely secondary to mechanical fall sustained on 11/22/2018 -General surgery, Dr. Cool, was consult by the ED and decided at this time that surgery is not warranted and to continue with supportive care. Patient's baseline hemoglobin is around 13. It was measured today at 8.7. The ED ordered 2 units of blood to be transfused. Once the second transfusion is complete, we will recheck his H&H. As we provide supportive care throughout his stay, we will continue to his monitor H&H because of his use of blood thinning medications. -Hold patient's blood thinning medication (aspirin, Plavix). -Apply warm compresses to the buttock area, site of patient's hematoma, every 4 hours. The goal is to induce local vasodilation, hopefully causing some of the collected blood to move away from the hematoma site. -ED ordered initial troponins that were negative and, while cause of patient's fall is likely not cardiac in nature, repeat troponins will be ordered to nonetheless rule this out as a contributing factor to patient's fall Place the patient on fall risk and follow with physical therapy. Patient normally ambulates with the assistance of a walker, as well as a plastic calf, ankle, and foot brace left leg 2. Mildly decompensated diastolic congestive heart failure -Patient presented with bilateral lower extremity and pedal edema, shortness of breath, had an elevated BNP, and a chest x-ray that showed bilateral mild pleural effusions. Patient has history of diagnosed stage I diastolic dysfunction Patient was given 1 dose of Lasix and then will resume his home Lasix dosage. Also continue with potassium chloride administration to avoid hypokalemia. Patient will be placed on 2 L fluid restriction. The patient's I and O's will be strictly monitored and he will be weighed daily 3. Chronic kidney disease, stage III GFR measured today, 57.9. 4. BPH. Continue with home Flomax and finasteride 5. GERD -Continue with home famotidine 6. Depression -Continue with home sertraline and trazodone 7. Essential hypertension -Continue with home trazodone 8. Coronary artery disease -History of three-vessel coronary artery disease from cardiac catheterization 9. History of TIA/CVA -History of significant left internal carotid artery disease 10. Alzheimer's dementia -Continue with home amantadine and donepezil 11. Abdominal aortic aneurysm -Previous AAA of 3.6 cm 12. Macular degeneration 13. Cervical spinal stenosis 14. Hyperlipidemia -Continue with home atorvastatin 15. Osteoarthritis 16. Paroxysmal atrial fibrillation -Continue with amiodarone 17. Reactive airway disease. Vital Signs Vital Signs Date Time Temp Pulse Resp B/P (MAP) Pulse Ox O2 Delivery O2 Flow Rate FiO2 11/27/18 16:45 64 18 153/72 (99) 97 Room Air 11/27/18 14:05 97.3 11/27/18 13:00 2.0 Laboratory Data Labs 24H Laboratory Tests 2 11/27/18 14:18: Immature Granulocyte % (Auto) 0.6, White Blood Count 6.6, Red Blood Count 2.76L, Hemoglobin 8.7L, Hematocrit 27.0L, Mean Corpuscular Volume 97.8H, Mean Corpuscular Hemoglobin 31.5, Mean Corpuscular Hemoglobin Concent 32.2, Red Cell Distribution Width 17.3H, Platelet Count 161, Neutrophils (%) (Auto) 63.5, Lymphocytes (%) (Auto) 5.6L, Monocytes (%) (Auto) 29.2H, Eosinophils (%) (Auto) 0.8, Basophils (%) (Auto) 0.3, Neutrophils # (Auto) 4.2, Lymphocytes # (Auto) 0.4L, Monocytes # (Auto) 1.9H, Eosinophils # (Auto) 0.1, Basophils # (Auto) 0.0, Nucleated Red Blood Cells % (auto) 0.0, Prothrombin Time 14.5H, Prothromb Time International Ratio 1.16, Activated Partial Thromboplast Time 30.0, Anion Gap 9, Glomerular Filtration Rate 57.9, Calcium Level 7.5L, Aspartate Amino Transf (AST/SGOT) 36, Alanine Aminotransferase (ALT/SGPT) 31, Alkaline Phosphatase 62, Total Bilirubin 1.4H, Direct Bilirubin 0.5H, Total Creatine Kinase 169, Creatine Kinase MB 4.2H, Creatine Kinase MB Relative Index 2.44, Troponin I 0.44H, UG-Fnh-X-Type Natriuretic Peptide 4160H, Total Protein 5.9L, Albumin 2.6L, Albumin/Globulin Ratio 0.79L, Thyroid Stimulating Hormone (TSH) 1.310 11/27/18 14:28: POC Glucose (Misc Panel) 151H, POC Sodium (Misc Panel) 144, POC Potassium (Misc Panel) 3.8, POC Chloride (Misc Panel) 104, POC Total CO2 (Misc Panel) 24.0, POC Blood Urea Nitrogen (Misc Panel 26, POC Ionized Calcium (Misc Panel) 4.6, POC Creatinine (Misc Panel) 1.2, POC Hematocrit (Misc Panel) 23.0L CBC/BMP Laboratory Tests 11/27/18 14:18 Red Blood Count 2.76 L, Mean Corpuscular Volume 97.8 H, Mean Corpuscular Hemoglobin 31.5, Mean Corpuscular Hemoglobin Concent 32.2, Red Cell Distribution Width 17.3 H, Neutrophils (%) (Auto) 63.5, Lymphocytes (%) (Auto) 5.6 L, Monocytes (%) (Auto) 29.2 H, Eosinophils (%) (Auto) 0.8, Basophils (%) (Auto) 0.3, Neutrophils # (Auto) 4.2, Lymphocytes # (Auto) 0.4 L, Monocytes # (Auto) 1.9 H, Eosinophils # (Auto) 0.1, Basophils # (Auto) 0.0 Microbiology Microbiology 11/27/18 Blood Culture, Received Pending Home Medications Scheduled Amiodarone HCl (Amiodarone HCl) 200 Mg Tab, 200 MG PO DAILY Aspirin (Aspirin EC) 81 Mg Tabec, 81 MG PO DAILY Atorvastatin Calcium (Lipitor) 80 Mg Tab, 80 MG PO QHS Cetirizine HCl (Cetirizine HCl) 10 Mg Tablet, 10 MG PO DAILY Clopidogrel Bisulfate (Plavix) 75 Mg Tab, 75 MG PO DAILY Donepezil Hcl (Donepezil HCl Odt) 10 Mg Tab, 10 MG PO QHS Finasteride (Finasteride) 5 Mg Tab, 5 MG PO DAILY Fluticasone Propionate (Flonase Allergy Relief) 9.9 Ml [place].susp, 2 SPRAY NA DAILY Fluticasone/Vilanterol (Breo Ellipta 100-25 Mcg INH) 1 Each Blst.w.dev, 1 PUFF INH DAILY Furosemide (Furosemide) 40 Mg Tab, 40 MG PO DAILY Lutein (Lutein) 20 Mg Capsule, 1 CAP PO QPM Meclizine Hcl (Meclizine HCl) 25 Mg Chw, 25 MG PO BID Memantine HCl (Namenda) 10 Mg Tab, 10 MG PO BID Mineral Oil/Petrolatum,White (Systane Nighttime Eye Ointment) 1 Oin Oin, 1 OIN OU QHS APPLY 1 CM TO INSIDE LOWER LID Multivitamins (Thera M Plus Tablet) 1 Tab Tab, 1 TAB PO DAILY Potassium Chloride (Potassium Chloride) 10 Meq Tab, 10 MEQ PO DAILY TAKES AT 1200 WITH FOOD Ranitidine HCl (Ranitidine HCl) 300 Mg Tab, 1 TAB PO DAILY Sertraline HCl (Sertraline HCl) 25 Mg Tab, 25 MG PO QHS Tamsulosin HCl (Flomax) 0.4 Mg Cap, 0.4 MG PO DAILY Vit C/E/Zn/Coppr/Lutein/Zeaxan (Preservision Areds 2 Softgel) 1 Each Capsule, 1 EACH PO QPM Scheduled PRN Acetaminophen (Acetaminophen) 325 Mg Tab, 650 MG PO Q8H PRN for PAIN Albuterol Sulfate (Proair Hfa) 108 Mcg/Act Aer, 2 PUFF INH Q4H PRN for SHORTNESS OF BREATH Benzonatate (Tessalon Perle) 100 Mg Capsule, 100 MG PO TID PRN for COUGH Carboxymethylcellulos/Glycerin (Refresh Optive Eye Drops) 1 Russell Russell, 1 RUSSELL OU TID PRN for DRY EYES Loperamide HCl (Imodium A-D) 2 Mg Tablet, 2 MG PO QID PRN for DIARRHEA Melatonin (Melatonin) 5 Mg Tab, 5 MG PO QHS PRN for INSOMNIA TAKE WITH FOOD Psyllium Husk (Psyllium Husk) 1 Pow Pow, 1 TBS PO DAILY PRN for CONSTIPATION WITH A MEAL Trazodone HCl (Trazodone HCl) 50 Mg Tab, 50 MG PO QHS PRN for INSOMNIA Allergies Coded Allergies: No Known Allergies (Unverified , 04/03/18) A-FIB/CHADSVASC A-FIB History Current/History of A-Fib/PAF?: Yes Current PO Anticoag Therapy: Yes Age/Risk Factor Scoring CHADSVASC: CHADSVASC Response (Comments) Value Age Risk Factor Age >/= 75 years old 2 Gender Risk Factor Male 0 Hx of CHF Yes 1 Hx of HTN Yes 1 Hx of Stroke/TIA/or VTE Yes 2 Hx of Diabetes No 0 Hx of Vascular Disease Yes 1 Total 7 Treatment Other reason anticoagulant not: extensive hematoma formation and takes Plavix and aspirin at home KAITLIN ARELLANO PGY-1 Nov 27, 2018 18:51
--- NOTE | 2018-11-27 20:41 | ECGEPIP ---
[facility] - ED Test Date: 2018-11-27 Pat Name: GIL SANTIAGO Department: Room: - Gender: Male Pre Press Proofer: : [id number] Requested By: [place] Order Number: [id number] Reading MD: [place] Measurements Intervals [place] Rate: 62 P: CA: -1 QRS: QRSD: 156 T: 122 QT: 481 QTc: 492 Interpretive Statements PROBABLE NSR MARKED LEFT AXIS DEVIATION LAFB INTRAVENTRICULAR CONDUCTION DELAY NONSPECIFIC ST T WAVE CHANGES PROLONGED QTC CW 05/19/18 RATE DECREASED DECREASED ECTOPY NONSPECIFIC ST T WAVE CHANGES Electronically Signed on 11-27-2018 20:41:42 EDT by [place]
[2018-11-27] MEDS: MECLIZINE 25 MG TABLET PO SCH (21:43)
[2018-11-27] MEDS: DONEPEZIL 5 MG TAB PO SCH (21:43)
[2018-11-27] MEDS: MEMANTINE 5MG TABLET (NAMENDA) PO SCH (21:43)
[2018-11-27] MEDS: ATORVASTATIN 20 MG TAB PO SCH (21:44)
[2018-11-27] MEDS: SERTRALINE HCL 25 MG TABLET PO SCH (21:44)
[2018-11-27 22:39] LABS: HEMATOCRIT 30.8 % (42.0-52.0); HEMOGLOBIN 9.8 g/dl (13.5-17.5)
[2018-11-27 23:19] LABS: CK-MB VALUE MASS 3.7 NG/ML (<3.6); MB/CK RELATIVE INDEX 2.22 (< OR =4); TROPONIN I 0.54 NG/ML (< 0.10)
[2018-11-28] VITALS: BP 127/70
[2018-11-28 04:00] VITALS: BP 108/51
[2018-11-28 06:17] LABS: HEMATOCRIT 30.2 % (42.0-52.0); HEMOGLOBIN 9.7 g/dl (13.5-17.5); MEAN CORPUSCULAR HEMOGLOBIN 29.7 pg (27.0-33.0); MEAN CORPUSCULAR HGB CONC 32.1 g/dl (32.0-36.5); MEAN CORPUSCULAR VOLUME 92.4 fl (80.0-96.0); PLATELET COUNT, AUTOMATED 151 10^3/uL (150-450); RED BLOOD COUNT 3.27 10^6/uL (4.30-6.10); WHITE BLOOD COUNT 6.9 10^3/uL (4.0-10.0)
[2018-11-28 06:45] LABS: BLOOD UREA NITROGEN 23 MG/DL (7-18); CALCIUM LEVEL 7.4 MG/DL (8.8-10.2); CARBON DIOXIDE LEVEL 26 MEQ/L (21-32); CHLORIDE LEVEL 112 MEQ/L (98-107); CREATININE FOR GFR 1.08 MG/DL (0.70-1.30); GLOMERULAR FILTRATION RATE > 60.0 (>35); GLUCOSE, FASTING 96 MG/DL (70-100); MAGNESIUM LEVEL 2.1 MG/DL (1.8-2.4); POTASSIUM SERUM 3.5 MEQ/L (3.5-5.1); SODIUM LEVEL 148 MEQ/L (136-145)
[2018-11-28 06:49] LABS: CK-MB VALUE MASS 2.6 NG/ML (<3.6); TROPONIN I 0.59 NG/ML (< 0.10)
[2018-11-28 08:00] VITALS: BP 163/80
[2018-11-28] MEDS: CETIRIZINE (ZyrTEC) 10 MG TAB PO SCH (08:43)
[2018-11-28] MEDS: TAMSULOSIN 0.4 MG CAP PO SCH (08:43)
[2018-11-28] MEDS: FLUTICASONE PROP 0.05% NASAL SPRAY 16 GM (FLONASE) SCH (08:44)
[2018-11-28] MEDS: MULTIVITAMINS/MINERALS THERAP 1 TAB PO SCH (08:44)
[2018-11-28] MEDS: MECLIZINE 25 MG TABLET PO SCH ×2 (08:44→22:02)
[2018-11-28] MEDS: MEMANTINE 5MG TABLET (NAMENDA) PO SCH ×2 (08:44→22:02)
[2018-11-28] MEDS: FAMOTIDINE 20 MG TAB PO SCH (08:44)
[2018-11-28] MEDS: FINASTERIDE 5 MG TAB PO SCH (08:44)
[2018-11-28] MEDS: AMIODARONE 200 MG TAB (PACERONE) PO SCH (08:44)
--- NOTE | 2018-11-28 08:59 | REP ---
Thoracolumbar spine: Two views. History: Question compression fracture. Comparison is made with the CT imaging from November 27, 2018. Findings: Visualized thoracic and lumbar vertebral body heights are preserved. No fracture or collapse is seen. There is advanced degenerative spondylosis in the lumbar spine along with a levoconvex curvature. Degenerative discogenic spurring is seen in the lower thoracic spine as well. Vascular calcification is noted and ventral hernia repair sutures are visualized on the frontal view in the upper abdomen. Impression: No fracture or collapse seen. Degenerative spondylosis changes. Electronically Signed by Dimitrios Leung MD 11/28/2018 12:01 P
[2018-11-28] MEDS ORDERED: FUROSEMIDE 40 MG TAB PO SCH (09:00)
--- NOTE | 2018-11-28 09:01 | REP ---
Lumbar spine series: Five views. History: Concern for compression fracture. Comparison is made with the previous day's CT imaging. Findings: There is a levoconvex curve in the lumbar spine. Advanced degenerative disc disease is seen at each lumbar level. Pedicles and posterior elements are intact. Vertebral body heights are preserved. No fracture or collapse is appreciated. Vascular calcification is seen in a normal caliber aorta. There are surgical clips scattered in the abdomen. Contrast enhanced urinary bladder is seen in the pelvis. Impression: Scoliosis and advanced degenerative disc disease and facet arthropathy. No traumatic abnormality noted. Electronically Signed by Dimitrios Leung MD 11/28/2018 12:01 P
[2018-11-28 12:00] VITALS: BP 132/63
[2018-11-28] MEDS ORDERED: POTASSIUM CHLORIDE 10 MEQ SR TABLET PO SCH (12:00)
[2018-11-28 14:46] LABS: CK-MB VALUE MASS 2.8 NG/ML (<3.6); MB/CK RELATIVE INDEX 1.87 (< OR =4); TROPONIN I 0.52 NG/ML (< 0.10)
--- NOTE | 2018-11-28 15:11 | IPNPDOC ---
Subjective Date Seen The patient was seen on 11/28/18. Subjective Chief Complaint/HPI Mikal was seen and examined this morning while lying in bed. He denies any overnight events. He states his lower back, hip and buttock pain is similar to yesterday when he described it as dull and not too severe. He is eating and drinking without issue. He is using a bedside urinal and has yet to have a bowel movement. General: Denies: Chills Constitutional: Denies: Fever ENT: Denies: Head Aches Pulmonary: Denies: Dyspnea, Cough Cardiovascular: Denies: Chest Pain, Palpitations Gastrointestinal: Denies: Nausea, Vomiting, Abdominal Pain, Diarrhea, Constipation Genitourinary: Denies: Dysuria Neurological: Denies: Numbness, Other Symptoms (paresthesias) Objective Physical Examination General Exam: Positive: Alert, Cooperative, No Acute Distress Eye Exam: Negative: EOMI (minor delay following kelsey's finger) ENT Exam: Positive: Other ENT (hard of hearing) Neck Exam: Positive: Supple; Negative: JVD Chest Exam: Positive: Wheezing (. Diffuse), Diminished Heart Exam: Positive: Regular Rhythm, Normal S2, Murmurs (systolic machinelike murmur right parasternal cardiac listening post) Abdomen Exam: Positive: Normal bowel sounds, Soft; Negative: Tenderness Extremity Exam: Positive: Edema (lower extremity and pedal edema bilaterally), Normal pulses (2+ posterior tibial) Skin Exam: Positive: Other skin issue (large area of ecchymosis approximately 30 cm x 30 cm. It extends roughly from T9 to the initial tuberosities bilaterally, anterior to posterior. . It also covers width of dorsal body surface ) Neuro Exam: Positive: Strength at 5/5 X4 ext (, 4 out of 5 muscle strength testing of left lower extremity) Psych Exam: Positive: Oriented x 3; Negative: Anxiety Assessment /Plan Assessment 1. Hematoma likely secondary to mechanical fall sustained on 11/22/2018 Patient's baseline hemoglobin is around 13. After 2 transfusions were administered. Patient's hemoglobin improved to 9.8. His most recent hemoglobin measurement was 9.7. Consider administration of another unit of blood. As we provide supportive care throughout his stay, we will continue to his monitor H&H because of his use of blood thinning medications. -Hold patient's blood thinning medication (aspirin, Plavix). -Repeat troponins were abnormal and are trending up -Apply warm compresses to the buttock area, site of patient's hematoma, every 4 hours. The goal is to induce local vasodilation, hopefully causing some of the collected blood to move away from the hematoma site. Place the patient on fall risk and follow with physical therapy. Patient normally ambulates with the assistance of a walker, as well as a plastic calf, ankle, and foot brace left leg -General surgery, Dr. Cool, was consult by the ED and decided at this time that surgery is not warranted and to continue with supportive care. 2. Mildly decompensated diastolic congestive heart failure -Increase patient's diuretic administration to 40 mg twice a day of IV Lasix. Also continue with potassium chloride administration to avoid hypokalemia Patient will be placed on 2 L fluid restriction. The patient's I and O's will be strictly monitored and he will be weighed daily -Patient presented with bilateral lower extremity and pedal edema, shortness of breath, had an elevated BNP, and a chest x-ray that showed bilateral mild pleural effusions. Patient has history of diagnosed stage I diastolic dysfunction 3. Chronic kidney disease, stage III (resolved) -Patient's most recent GFR was greater than 60%. 4. BPH. Continue with home Flomax and finasteride 5. GERD -Continue with home famotidine 6. Depression -Continue with home sertraline and trazodone 7. Essential hypertension -Continue with home trazodone 8. Coronary artery disease -History of three-vessel coronary artery disease from cardiac catheterization 9. History of TIA/CVA -History of significant left internal carotid artery disease 10. Alzheimer's dementia -Continue with home amantadine and donepezil 11. Abdominal aortic aneurysm -Previous AAA of 3.6 cm 12. Macular degeneration 13. Cervical spinal stenosis 14. Hyperlipidemia -Continue with home atorvastatin 15. Osteoarthritis 16. Paroxysmal atrial fibrillation -Continue with amiodarone 17. Reactive airway disease. Plan/VTE VTE Prophylaxis Ordered?: Yes VS, I&O, 24H, Fishbone Vital Signs/I&O Vital Signs Date Time Temp Pulse Resp B/P (MAP) Pulse Ox O2 Delivery O2 Flow Rate FiO2 11/28/18 12:00 98.0 60 15 132/63 (86) 98 11/28/18 08:00 2.0 11/27/18 19:45 Nasal Cannula I&O- Last 24 Hours up to 6 AM 11/28/18 06:00 Intake Total 0 ml Output Total 650 ml Balance -650 ml Laboratory Data 24H LABS Laboratory Tests 2 11/27/18 22:12: Total Creatine Kinase 167, Creatine Kinase MB 3.7H, Creatine Kinase MB Relative Index 2.22, Troponin I 0.54#H 11/28/18 05:34: Total Creatine Kinase 130, Creatine Kinase MB 2.6, Creatine Kinase MB Relative Index 2.00, Troponin I 0.59H, Nucleated Red Blood Cells % (auto) 0.3H, Anion Gap 10, Glomerular Filtration Rate > 60.0, Blood Urea Nitrogen 23H, Creatinine 1.08, Sodium Level 148H, Potassium Level 3.5, Chloride Level 112H, Carbon Dioxide Level 26, Calcium Level 7.4L, Magnesium Level 2.1 11/28/18 13:49: Total Creatine Kinase 150, Creatine Kinase MB 2.8, Creatine Kinase MB Relative Index 1.87, Troponin I 0.52H CBC/BMP Laboratory Tests 11/27/18 22:12 11/28/18 05:34 Red Blood Count 3.27 L, Mean Corpuscular Volume 92.4, Mean Corpuscular Hemoglobin 29.7, Mean Corpuscular Hemoglobin Concent 32.1, Red Cell Distribution Width 17.2 H, Calcium Level 7.4 L Microbiology Microbiology 11/27/18 Blood Culture, Received Pending 11/27/18 Blood Culture - Preliminary, Resulted No growth after 24 hours . All specim... KAITLIN ARELLANO PGY-1 Nov 28, 2018 15:11
[2018-11-28 16:00] VITALS: BP 144/71
[2018-11-28] MEDS: FUROSEMIDE 40 MG/4 ML VIAL (J1940) IV SCH (18:44)
[2018-11-28 20:00] VITALS: BP 157/73
[2018-11-28] MEDS: DONEPEZIL 5 MG TAB PO SCH (22:02)
[2018-11-28] MEDS: SERTRALINE HCL 25 MG TABLET PO SCH (22:02)
[2018-11-28] MEDS: ATORVASTATIN 20 MG TAB PO SCH (22:02)
[2018-11-29 04:00] VITALS: BP 126/58
[2018-11-29 06:01] LABS: HEMATOCRIT 30.8 % (42.0-52.0); HEMOGLOBIN 9.9 g/dl (13.5-17.5); MEAN CORPUSCULAR HEMOGLOBIN 30.2 pg (27.0-33.0); MEAN CORPUSCULAR HGB CONC 32.1 g/dl (32.0-36.5); MEAN CORPUSCULAR VOLUME 93.9 fl (80.0-96.0); PLATELET COUNT, AUTOMATED 164 10^3/uL (150-450); RED BLOOD COUNT 3.28 10^6/uL (4.30-6.10); WHITE BLOOD COUNT 7.2 10^3/uL (4.0-10.0)
[2018-11-29 06:26] LABS: BLOOD UREA NITROGEN 21 MG/DL (7-18); CALCIUM LEVEL 7.9 MG/DL (8.8-10.2); CARBON DIOXIDE LEVEL 32 MEQ/L (21-32); CHLORIDE LEVEL 111 MEQ/L (98-107); CREATININE FOR GFR 1.12 MG/DL (0.70-1.30); GLOMERULAR FILTRATION RATE > 60.0 (>35); GLUCOSE, FASTING 96 MG/DL (70-100); POTASSIUM SERUM 3.3 MEQ/L (3.5-5.1); SODIUM LEVEL 146 MEQ/L (136-145)
[2018-11-29] MEDS: FLUTICASONE PROP 0.05% NASAL SPRAY 16 GM (FLONASE) SCH (09:00)
[2018-11-29 10:00] VITALS: BP 133/62
[2018-11-29] MEDS: CETIRIZINE (ZyrTEC) 10 MG TAB PO SCH (10:08)
[2018-11-29] MEDS: TAMSULOSIN 0.4 MG CAP PO SCH (10:08)
[2018-11-29] MEDS: FINASTERIDE 5 MG TAB PO SCH (10:08)
[2018-11-29] MEDS: AMIODARONE 200 MG TAB (PACERONE) PO SCH (10:08)
[2018-11-29] MEDS: FUROSEMIDE 40 MG/4 ML VIAL (J1940) IV SCH ×2 (10:08→16:45)
[2018-11-29] MEDS: MULTIVITAMINS/MINERALS THERAP 1 TAB PO SCH (10:08)
[2018-11-29] MEDS: MECLIZINE 25 MG TABLET PO SCH ×2 (10:09→19:55)
[2018-11-29] MEDS: MEMANTINE 5MG TABLET (NAMENDA) PO SCH ×2 (10:09→19:55)
[2018-11-29] MEDS: FAMOTIDINE 20 MG TAB PO SCH (10:09)
[2018-11-29] MEDS: POTASSIUM CHLORIDE 10 MEQ SR TABLET PO SCH (12:45)
[2018-11-29 16:49] VITALS: BP 136/63
[2018-11-29] MEDS: SERTRALINE HCL 25 MG TABLET PO SCH (19:55)
[2018-11-29] MEDS: ATORVASTATIN 20 MG TAB PO SCH (19:55)
[2018-11-29] MEDS: DONEPEZIL 5 MG TAB PO SCH (19:56)
[2018-11-29 22:00] VITALS: BP 135/65
--- NOTE | 2018-11-30 00:46 | IPNPDOC ---
Subjective Date Seen The patient was seen on 11/29/18. Subjective Chief Complaint/HPI Continues to have SOB with wheezing though says a little better than before. Had very good diuresis over night. Now also complains of light headedness on sudden change of posture. Has low back pain and buttock pain with difficulty in mobilization. however he was able to stand up and use the commode with minimal assist. No fever or chills, no chest pain or cough. No abdominal pain , nausea or vomiting or diarrhea. Objective Physical Examination General Exam: Positive: Alert, Cooperative, No Acute Distress Eye Exam: Negative: EOMI (minor delay following kelsey's finger) ENT Exam: Positive: Other ENT (hard of hearing) Neck Exam: Positive: Supple; Negative: JVD Chest Exam: Positive: Wheezing (. Diffuse), Diminished Heart Exam: Positive: Rate Normal, Regular Rhythm, Normal S2, Murmurs (systolic machinelike murmur right parasternal cardiac listening post); Negative: Bradycardic, Normal S1, Gallops, Rubs Abdomen Exam: Positive: Normal bowel sounds, Soft; Negative: Tenderness Extremity Exam: Positive: Edema (lower extremity and pedal edema bilaterally), Normal pulses (2+ posterior tibial); Negative: Clubbing, Cyanosis Skin Exam: Positive: Other skin issue (large area of ecchymosis approximately 30 cm x 30 cm. It extends roughly from T9 to the initial tuberosities bilaterally, anterior to posterior. . It also covers width of dorsal body surface ) Neuro Exam: Positive: Strength at 5/5 X4 ext (, 4 out of 5 muscle strength testing of left lower extremity) Psych Exam: Positive: Oriented x 3; Negative: Anxiety Assessment /Plan Assessment Acute blood loss anemia due to bleeding into massive hematoma Hematoma secondary to mechanical fall sustained on 11/22/2018 involving the whole of the lumber region bilaterally extending anteriorly to the abdominal wall and going down ot the buttocks and thighs. General surgery, Dr. Garibay, was consult by the ED and decided at this time that surgery is not warranted and to continue with supportive care. s/p 2 units of PRBC. HH stable . will continue to monitor for any further drop. Apply warm compresses to the buttock area, site of patient's hematoma, every 4 hours. The goal is to induce local vasodilation, hopefully causing some of the collected blood to move away from the hematoma site. Placed the patient on fall risk and follow with physical therapy. Patient normally ambulates with the assistance of a walker, as well as a plastic calf, ankle, and foot brace left leg Decompensated diastolic congestive heart failure continue I/O measurement. Fluid restriction to 2 l IV lasix Acute on chronic respiratory failure with hypoxia due to CHF exacerbation continue diuresis and oxygen supplementation Elevated troponin probably false positive due to CHF. troponin curve is flat Moderate Aortic stenosis from Echo in 2018 will continue with diuresis will get new echo. Coronary artery disease s/p CABG History of three-vessel coronary artery disease from cardiac catheterization continue statin and betablocker will hold asa and plavix for a few days. Hypokalemia and hypernatremia due to diuresis will continue to monitor potassium replaced. Chronic kidney disease, stage III creatinine stable continue to monitor. BPH. Continue with home Flomax and finasteride GERD Continue with home famotidine Depression Continue with home sertraline and trazodone Essential hypertension Continue with home meds with hold parameters History of TIA/CVA History of significant left internal carotid artery disease Alzheimer's dementia Continue with home amantadine and donepezil Abdominal aortic aneurysm and ascedeing thoracic aortic aneurysm Previous AAA of 3.6 cm s/p bypass grafting. Macular degeneration Cervical spinal stenosis Hyperlipidemia Continue with home atorvastatin Osteoarthritis Paroxysmal atrial fibrillation now in sinus rhythm Continue with amiodarone Reactive airway disease. Plan/VTE VTE Prophylaxis Ordered?: Yes VS, I&O, 24H, Fishbone Vital Signs/I&O Vital Signs Date Time Temp Pulse Resp B/P (MAP) Pulse Ox O2 Delivery O2 Flow Rate FiO2 11/29/18 10:00 97.2 80 20 133/62 (85) 97 2.0 11/27/18 19:45 Nasal Cannula I&O- Last 24 Hours up to 6 AM 11/29/18 06:00 Intake Total 1120 ml Output Total 3980 ml Balance -2860 ml Laboratory Data 24H LABS Laboratory Tests 2 11/29/18 05:22: Nucleated Red Blood Cells % (auto) 0.0 11/29/18 05:23: Anion Gap 3L, Glomerular Filtration Rate > 60.0, Blood Urea Nitrogen 21H, Creatinine 1.12, Sodium Level 146H, Potassium Level 3.3L, Chloride Level 111H, Carbon Dioxide Level 32, Calcium Level 7.9L CBC/BMP Laboratory Tests 11/29/18 05:22 Red Blood Count 3.28 L, Mean Corpuscular Volume 93.9, Mean Corpuscular Hemoglobin 30.2, Mean Corpuscular Hemoglobin Concent 32.1, Red Cell Distribution Width 17.4 H 11/29/18 05:23 Calcium Level 7.9 L Microbiology Microbiology 11/27/18 Blood Culture - Preliminary, Resulted No growth after 24 hours . All specim... 11/27/18 Blood Culture - Preliminary, Resulted No Growth after 48 hours. All Specime... BILLY HOFFMAN MD Nov 29, 2018 16:51
[2018-11-30 06:00] VITALS: BP 142/68
[2018-11-30 06:08] LABS: HEMATOCRIT 31.8 % (42.0-52.0); MEAN CORPUSCULAR HEMOGLOBIN 29.9 pg (27.0-33.0); MEAN CORPUSCULAR HGB CONC 31.4 g/dl (32.0-36.5); MEAN CORPUSCULAR VOLUME 95.2 fl (80.0-96.0); PLATELET COUNT, AUTOMATED 170 10^3/uL (150-450); RED BLOOD COUNT 3.34 10^6/uL (4.30-6.10); WHITE BLOOD COUNT 6.7 10^3/uL (4.0-10.0)
[2018-11-30 06:32] LABS: BLOOD UREA NITROGEN 23 MG/DL (7-18); CARBON DIOXIDE LEVEL 34 MEQ/L (21-32); CHLORIDE LEVEL 109 MEQ/L (98-107); CREATININE FOR GFR 1.02 MG/DL (0.70-1.30); GLOMERULAR FILTRATION RATE > 60.0 (>35); GLUCOSE, FASTING 90 MG/DL (70-100); POTASSIUM SERUM 3.3 MEQ/L (3.5-5.1); SODIUM LEVEL 145 MEQ/L (136-145)
[2018-11-30] MEDS ORDERED: POTASSIUM CHLORIDE 10 MEQ SR TABLET PO ONE (06:45)
[2018-11-30] MEDS: MULTIVITAMINS/MINERALS THERAP 1 TAB PO SCH (08:32)
[2018-11-30] MEDS: MEMANTINE 5MG TABLET (NAMENDA) PO SCH ×2 (08:32→20:36)
[2018-11-30] MEDS: FAMOTIDINE 20 MG TAB PO SCH (08:32)
[2018-11-30] MEDS: FUROSEMIDE 40 MG/4 ML VIAL (J1940) IV SCH ×2 (08:32→16:21)
[2018-11-30] MEDS: FINASTERIDE 5 MG TAB PO SCH (08:32)
[2018-11-30] MEDS: CETIRIZINE (ZyrTEC) 10 MG TAB PO SCH (08:33)
[2018-11-30] MEDS: AMIODARONE 200 MG TAB (PACERONE) PO SCH (08:33)
[2018-11-30] MEDS: MECLIZINE 25 MG TABLET PO SCH ×2 (08:33→20:36)
[2018-11-30] MEDS: TAMSULOSIN 0.4 MG CAP PO SCH (08:33)
[2018-11-30] MEDS: FLUTICASONE PROP 0.05% NASAL SPRAY 16 GM (FLONASE) SCH (09:00)
--- NOTE | 2018-11-30 09:02 | IPNPDOC ---
Subjective Date Seen The patient was seen on 11/30/18. Subjective Chief Complaint/HPI Mikal was seen and examined this morning while lying on his left side in bed. Patient's pain in lower back remains but is less intense than it was Friday into the weekend. He denies feeling lightheaded. He still has shortness of breath, but states that it is slightly improved from the weekend. Patient's hearing was a bit improved from previous visits as he is wearing a hearing aid. He does not have any dysuria at this time. General: Denies: Chills Constitutional: Denies: Fever ENT: Denies: Head Aches, Other Symptoms (feeling lightheaded) Pulmonary: Denies: Dyspnea Cardiovascular: Denies: Chest Pain, Palpitations Gastrointestinal: Denies: Nausea, Vomiting, Abdominal Pain, Diarrhea, Constipation Genitourinary: Denies: Dysuria Musculoskeletal: Reports: Back Pain ( lower back and posterior pelvis) Neurological: Denies: Numbness Objective Physical Examination General Exam: Positive: Alert, Cooperative, No Acute Distress, Other (remains lying on left side in bed as this is the most comfortable position for him) Eye Exam: Negative: EOMI (minor delay following kelsey's finger) ENT Exam: Positive: Other ENT (hard of hearing) Neck Exam: Positive: Supple; Negative: JVD Chest Exam: Positive: Wheezing (Diffuse), Diminished Heart Exam: Positive: Rate Normal, Regular Rhythm, Normal S2, Murmurs (systolic machine-like murmur right parasternal cardiac listening post); Negative: Bradycardic, Normal S1, Gallops, Rubs Abdomen Exam: Positive: Normal bowel sounds, Soft; Negative: Tenderness Extremity Exam: Positive: Edema (lower extremity and pedal edema bilaterally), Normal pulses (2+ posterior tibial); Negative: Clubbing, Cyanosis Skin Exam: Positive: Other skin issue (large area of ecchymosis approximately 3 0 cm x 30 cm. It extends roughly from T9 to the initial tuberosities bilaterally, anterior to posterior. . It also covers width of dorsal body surface ) Neuro Exam: Positive: Strength at 5/5 X4 ext (, 4 out of 5 muscle strength testing of left lower extremity) Psych Exam: Positive: Mood NL, Oriented x 3; Negative: Anxiety Assessment /Plan Assessment 1. Acute blood loss anemia due to bleeding into massive hematoma secondary to mechanical fall in the setting of active anticoagulation with aspirin and Plavix -Hematoma secondary to mechanical fall sustained on 11/22/2018 involving the whole of the lumber region bilaterally extending anteriorly to the abdominal wall and inferiorly to the buttocks and thighs. -s/p 2 units of PRBC. HH stable (hemoglobin currently 10 and has continually improved with each measurement during inpatient stay). We will continue to monitor for any further drop. -Continue to hold patient's Plavix and aspirin -General surgery, Dr. Cool, was consulted by the ED and decided that surgery is not warranted and to continue with supportive care. -Apply warm compresses to the buttock area, site of patient's hematoma, every 4 hours. The goal is to induce local vasodilation, hopefully causing some of the collected blood to move away from the hematoma site. -Placed the patient on fall risk and follow with physical therapy. Patient normally ambulates with the assistance of a walker, as well as a plastic calf, ankle, and foot brace left leg 2. Decompensated diastolic congestive heart failure -Continue with I/O measurement -Fluid restriction remains in place to 2L -Continue with IV lasix 3. Acute respiratory failure with hypoxia -due to CHF exacerbation -continue diuresis and oxygen supplementation 4. Elevated troponin -Likely due to CHF -Patient's troponin curve is flat 5. Moderate Aortic stenosis from Echo in 2018 -we will continue with diuresis and will get new echo. 6. Coronary artery disease s/p CABG -History of three-vessel coronary artery disease from cardiac catheterization -continue statin and betablocker -will hold asa and plavix for a few days. 7. Hypokalemia and hypernatremia -due to active diuresis -We will continue to monitor -Patient's potassium replaced on 11/29, 1 dose by mouth 20 mEq. 9. Chronic kidney disease, stage III -creatinine currently stable, continue to monitor. 10. BPH. -Continue with home Flomax and finasteride 11. GERD -Continue with home famotidine 12. Depression -Continue with home sertraline and trazodone 13. Essential hypertension -Continue with home meds with hold parameters 14. History of TIA/CVA -History of significant left internal carotid artery disease 15. Alzheimer's dementia -Continue with home amantadine and donepezil 16. Abdominal aortic aneurysm and ascending thoracic aortic aneurysm -Previous AAA of 3.6 cm s/p bypass grafting. 17. Macular degeneration 18. Cervical spinal stenosis 19. Hyperlipidemia --Continue with home atorvastatin 20. Osteoarthritis 21. Paroxysmal atrial fibrillation -Patient now in sinus rhythm -Continue with amiodarone 22. Reactive airway disease Plan/VTE VTE Prophylaxis Ordered?: Yes VS, I&O, 24H, Fishbone Vital Signs/I&O Vital Signs Date Time Temp Pulse Resp B/P (MAP) Pulse Ox O2 Delivery O2 Flow Rate FiO2 11/30/18 06:00 97.8 60 20 142/68 (92) 95 2.0 11/27/18 19:45 Nasal Cannula I&O- Last 24 Hours up to 6 AM 11/30/18 06:00 Intake Total 540 ml Output Total 600 ml Balance -60 ml Laboratory Data 24H LABS Laboratory Tests 2 11/30/18 05:33: Nucleated Red Blood Cells % (auto) 0.0, Anion Gap 2L, Glomerular Filtration Rate > 60.0, Blood Urea Nitrogen 23H, Creatinine 1.02, Sodium Level 145, Potassium Level 3.3L, Chloride Level 109H, Carbon Dioxide Level 34H, Calcium Level 8.0L CBC/BMP Laboratory Tests 11/30/18 05:33 Red Blood Count 3.34 L, Mean Corpuscular Volume 95.2, Mean Corpuscular Hemoglobin 29.9, Mean Corpuscular Hemoglobin Concent 31.4 L, Red Cell Distribution Width 17.5 H, Calcium Level 8.0 L Microbiology Microbiology 11/27/18 Blood Culture - Preliminary, Resulted No Growth after 48 hours. All Specime... 11/27/18 Blood Culture - Preliminary, Resulted No Growth after 48 hours. All Specime... Attending Note Attending Note I have personally seen and examined the patient this am. I agree with the finding and the plan of care as documented above in the resident's note with the following addendum/ amendment. Patient remains hypoxic requiring 2 liters of oxygen. Patient is not oxygen dependent prior to this hospitalization. will continue with diuresis and try to wean off oxygen. Patient is from [place] may need to go to acute rehab prior to going back to [place]. KAITLIN ARELLANO PGY-1 Nov 30, 2018 09:02 BILLY HOFFMAN MD Nov 30, 2018 22:07
[2018-11-30] MEDS: POTASSIUM CHLORIDE 10 MEQ SR TABLET PO SCH (12:15)
[2018-11-30] MEDS: ATORVASTATIN 20 MG TAB PO SCH (20:36)
[2018-11-30] MEDS: SERTRALINE HCL 25 MG TABLET PO SCH (20:36)
[2018-11-30] MEDS: DONEPEZIL 5 MG TAB PO SCH (20:36)
[2018-11-30 22:00] VITALS: BP 141/65
[2018-12-01 05:50] LABS: HEMOGLOBIN 10.7 g/dl (13.5-17.5); MEAN CORPUSCULAR HEMOGLOBIN 30.8 pg (27.0-33.0); MEAN CORPUSCULAR HGB CONC 32.4 g/dl (32.0-36.5); MEAN CORPUSCULAR VOLUME 95.1 fl (80.0-96.0); PLATELET COUNT, AUTOMATED 180 10^3/uL (150-450); RED BLOOD COUNT 3.47 10^6/uL (4.30-6.10); WHITE BLOOD COUNT 6.1 10^3/uL (4.0-10.0)
[2018-12-01 06:00] VITALS: BP 151/74
[2018-12-01 06:01] LABS: BLOOD UREA NITROGEN 23 MG/DL (7-18); CALCIUM LEVEL 7.9 MG/DL (8.8-10.2); CARBON DIOXIDE LEVEL 33 MEQ/L (21-32); CHLORIDE LEVEL 109 MEQ/L (98-107); CREATININE FOR GFR 1.13 MG/DL (0.70-1.30); GLOMERULAR FILTRATION RATE > 60.0 (>35); GLUCOSE, FASTING 98 MG/DL (70-100); POTASSIUM SERUM 3.5 MEQ/L (3.5-5.1); SODIUM LEVEL 146 MEQ/L (136-145)
[2018-12-01] MEDS: TAMSULOSIN 0.4 MG CAP PO SCH (08:24)
[2018-12-01] MEDS: FUROSEMIDE 40 MG/4 ML VIAL (J1940) IV SCH ×2 (08:24→17:21)
[2018-12-01] MEDS: CETIRIZINE (ZyrTEC) 10 MG TAB PO SCH (08:24)
[2018-12-01] MEDS: MECLIZINE 25 MG TABLET PO SCH ×2 (08:24→20:10)
[2018-12-01] MEDS: FINASTERIDE 5 MG TAB PO SCH (08:24)
[2018-12-01] MEDS: FAMOTIDINE 20 MG TAB PO SCH (08:25)
[2018-12-01] MEDS: AMIODARONE 200 MG TAB (PACERONE) PO SCH (08:25)
[2018-12-01] MEDS: MEMANTINE 5MG TABLET (NAMENDA) PO SCH ×2 (08:25→20:10)
[2018-12-01] MEDS: FLUTICASONE PROP 0.05% NASAL SPRAY 16 GM (FLONASE) SCH (08:25)
[2018-12-01] MEDS: MULTIVITAMINS/MINERALS THERAP 1 TAB PO SCH (08:25)
[2018-12-01] MEDS: POTASSIUM CHLORIDE 10 MEQ SR TABLET PO SCH (12:33)
[2018-12-01 14:00] VITALS: BP 160/68
[2018-12-01] MEDS: CLOPIDOGREL 75 MG TAB PO SCH (14:50)
[2018-12-01] MEDS: ASPIRIN 81 MG ENTERIC TAB PO SCH (14:50)
--- NOTE | 2018-12-01 20:05 | IPNPDOC ---
Subjective Date Seen The patient was seen on 12/01/18. Subjective Chief Complaint/HPI Mikal was seen and examined this morning while sitting upright in a chair next to his hospital bed. He seemed to be doing much better than previous days as he was out of bed. He was seated upright and he was no longer requiring supplemental oxygen via nasal cannula. He is eating and drinking without any issues. He has been up and walking with a walker. At the time of our visit, he was awaiting another PT/OT evaluation. He denies any adverse events overnight and states that his lower back, pelvis, and buttock pain is improved. General: Denies: Chills ENT: Denies: Head Aches Pulmonary: Denies: Dyspnea, Cough Cardiovascular: Denies: Chest Pain, Palpitations Gastrointestinal: Denies: Nausea, Vomiting, Abdominal Pain Genitourinary: Denies: Dysuria Musculoskeletal: Reports: Back Pain (lower back, significantly improved from previous days); Denies: Neck Pain Neurological: Denies: Weakness, Numbness Objective Physical Examination General Exam: Positive: Alert, Cooperative, No Acute Distress, Other (remains lying on left side in bed as this is the most comfortable position for him) ENT Exam: Positive: Other ENT (hard of hearing) Neck Exam: Positive: Supple; Negative: JVD Chest Exam: Positive: Wheezing (Diffuse); Negative: Rhonchi Heart Exam: Positive: Rate Normal, Regular Rhythm, Normal S2, Murmurs (systolic machine-like murmur right parasternal cardiac listening post); Negative: Bradycardic, Normal S1, Gallops, Rubs Abdomen Exam: Positive: Normal bowel sounds, Soft; Negative: Tenderness Extremity Exam: Positive: Edema (lower extremity and pedal edema bilaterally), Normal pulses (2+ posterior tibial); Negative: Clubbing, Cyanosis Skin Exam: Positive: Other skin issue (large area of ecchymosis approximately 30 cm x 30 cm. It extends roughly from T9 to the initial tuberosities bilaterally, anterior to posterior. . It also covers width of dorsal body surface ) Neuro Exam: Positive: Strength at 5/5 X4 ext (, 4 out of 5 muscle strength testing of left lower extremity) Psych Exam: Positive: Mood NL, Oriented x 3; Negative: Anxiety Assessment /Plan Assessment 1. Acute blood loss anemia due to bleeding into massive hematoma secondary to mechanical fall in the setting of active anticoagulation with aspirin and Plavix -Hematoma secondary to mechanical fall sustained on 11/22/2018 involving the whole of the lumber region bilaterally extending anteriorly to the abdominal wall and inferiorly to the buttocks and thighs. -The patient's hematoma was likely greater in size due to the fact that he was on active anticoagulants at the time of his mechanical fall -s/p 2 units of PRBC. HH stable (hemoglobin currently 10 and has continually improved with each measurement during inpatient stay). -We will recheck H&H tomorrow (12/02/18) and, if stable, he will likely be discharged -We will also resume administering patient's aspirin and Plavix -General surgery, Dr. Cool, was consulted by the ED and decided that surgery is not warranted and to continue with supportive care.Apply warm compresses to the buttock area, site -Placed the patient on fall risk and follow with physical therapy. Patient normally ambulates with the assistance of a walker, as well as a plastic calf, ankle, and foot brace left leg 2. Decompensated diastolic congestive heart failure -Continue with I/O measurement -Fluid restriction remains in place to 2L -Continue with IV lasix 3. Acute respiratory failure with hypoxia -due to CHF exacerbation -Patient is no longer needing supplemental oxygen via nasal cannula. He is breathing on room air -continue diuresis 4. Elevated troponin -Likely a false positive due to CHF -Patient's troponin curve is flat 5. Moderate Aortic stenosis from Echo in 2018 -we will continue with diuresis and will get new echo. 6. Coronary artery disease s/p CABG -History of three-vessel coronary artery disease from cardiac catheterization -continue statin and betablocker -will hold asa and plavix for a few days. 7. Hypokalemia and hypernatremia -due to active diuresis -We will continue to monitor -Patient's potassium replaced on 11/29, 1 dose by mouth 20 mEq. 9. Chronic kidney disease, stage III -creatinine currently stable, continue to monitor. 10. BPH. -Continue with home Flomax and finasteride 11. GERD -Continue with home famotidine 12. Depression -Continue with home sertraline and trazodone 13. Essential hypertension -Continue with home meds with hold parameters 14. History of TIA/CVA -History of significant left internal carotid artery disease 15. Alzheimer's dementia -Continue with home amantadine and donepezil 16. Abdominal aortic aneurysm and ascending thoracic aortic aneurysm -Previous AAA of 3.6 cm s/p bypass grafting. 17. Macular degeneration 18. Cervical spinal stenosis 19. Hyperlipidemia --Continue with home atorvastatin 20. Osteoarthritis 21. Paroxysmal atrial fibrillation -Patient now in sinus rhythm -Continue with amiodarone 22. Reactive airway disease Plan/VTE VTE Prophylaxis Ordered?: Yes VS, I&O, 24H, Fishbone Vital Signs/I&O Vital Signs Date Time Temp Pulse Resp B/P (MAP) Pulse Ox O2 Delivery O2 Flow Rate FiO2 12/01/18 14:00 97.5 70 18 160/68 (98) 93 11/30/18 09:00 2.0 11/27/18 19:45 Nasal Cannula I&O- Last 24 Hours up to 6 AM 12/01/18 05:59 Intake Total 1310 ml Balance 1310 ml Laboratory Data 24H LABS Laboratory Tests 2 12/01/18 05:18: Nucleated Red Blood Cells % (auto) 0.0, Anion Gap 4L, Glomerular Filtration Rate > 60.0, Blood Urea Nitrogen 23H, Creatinine 1.13, Sodium Level 146H, Potassium Level 3.5, Chloride Level 109H, Carbon Dioxide Level 33H, Calcium Level 7.9L CBC/BMP Laboratory Tests 12/01/18 05:18 Red Blood Count 3.47 L, Mean Corpuscular Volume 95.1, Mean Corpuscular Hemoglobin 30.8, Mean Corpuscular Hemoglobin Concent 32.4, Red Cell Distribution Width 17.2 H, Calcium Level 7.9 L Microbiology Microbiology 11/27/18 Blood Culture - Preliminary, Resulted No Growth after 72 hours. All specime... 11/27/18 Blood Culture - Preliminary, Resulted No Growth after 72 hours. All specime... Attending Note Attending Note I have personally seen and examined the patient this am. I agree with the finding and the plan of care as documented above resident's/ medical student's note with the following addendum/ amendment. Patient is off oxygen this am. His hypoxia has resolved after good diuresis and improvement on his CHF. Patient instructed about strict maintainence of fluid restriction KAITLIN ARELLANO PGY-1 Dec 01, 2018 20:05 BILLY HOFFMAN MD Dec 01, 2018 23:24
[2018-12-01] MEDS: SERTRALINE HCL 25 MG TABLET PO SCH (20:10)
[2018-12-01] MEDS: ATORVASTATIN 20 MG TAB PO SCH (20:10)
[2018-12-01] MEDS: DONEPEZIL 5 MG TAB PO SCH (20:10)
[2018-12-01 22:00] VITALS: BP 163/72
[2018-12-02 06:00] VITALS: BP 149/72
[2018-12-02 06:25] LABS: HEMATOCRIT 33.9 % (42.0-52.0); HEMOGLOBIN 10.8 g/dl (13.5-17.5); MEAN CORPUSCULAR HEMOGLOBIN 30.7 pg (27.0-33.0); MEAN CORPUSCULAR HGB CONC 31.9 g/dl (32.0-36.5); MEAN CORPUSCULAR VOLUME 96.3 fl (80.0-96.0); PLATELET COUNT, AUTOMATED 176 10^3/uL (150-450); RED BLOOD COUNT 3.52 10^6/uL (4.30-6.10); WHITE BLOOD COUNT 5.6 10^3/uL (4.0-10.0)
[2018-12-02 06:55] LABS: BLOOD UREA NITROGEN 21 MG/DL (7-18); CARBON DIOXIDE LEVEL 32 MEQ/L (21-32); CHLORIDE LEVEL 108 MEQ/L (98-107); CREATININE FOR GFR 1.04 MG/DL (0.70-1.30); GLOMERULAR FILTRATION RATE > 60.0 (>35); GLUCOSE, FASTING 91 MG/DL (70-100); POTASSIUM SERUM 3.5 MEQ/L (3.5-5.1); SODIUM LEVEL 147 MEQ/L (136-145)
--- NOTE | 2018-12-02 08:11 | DS.PDOC ---
Discharge Summary General Date of Admission Nov 27, 2018 at 16:32 Date of Discharge 12/02/2018 Primary Care Physician: KARI HOFFMAN MD Attending Physician: BILLY HOFFMAN MD Specialist/Consultants Involve: Stephane Garibay Jr Discharge Summary PROCEDURES PERFORMED DURING STAY: [None]. ADMITTING DIAGNOSES: 1. Hematoma DISCHARGE DIAGNOSES: 1. Acute blood loss anemia due to bleeding into massive hematoma secondary to mechanical fall in the setting of active anticoagulation with aspirin and Plavix 2. Decompensated diastolic congestive heart failure 3. Acute respiratory failure with hypoxia 4. Elevated troponin 5. Moderate Aortic stenosis from Echo in 2018 6. Coronary artery disease s/p CABG 7. Hypokalemia and hypernatremia 9. Chronic kidney disease, stage III 10. BPH. 11. GERD 12. Depression 13. Essential hypertension 14. History of TIA/CVA 15. Alzheimer's dementia 16. Abdominal aortic aneurysm and ascending thoracic aortic aneurysm 17. Macular degeneration 18. Cervical spinal stenosis 19. Hyperlipidemia 20. Osteoarthritis 21. Paroxysmal atrial fibrillation 22. Reactive airway disease COMPLICATIONS/CHIEF COMPLAINT: Hematoma. HISTORY OF PRESENT ILLNESS: Mikal is an 88-year-old male who presents today from the [facility] with a chief complaint of back and buttock pain. He sustained a mechanical fall this past November 22 while ambulating over dirt ground with the assistance of his walker. His walker "caught" on the ground causing him to fall backwards making initial contact with his back, hip, and rear. He states his head made secondary contact after whipping back. He states that he did not lose consciousness. His son, Turner, witnessed the fall at their family reunion. Turner is the patient's healthcare proxy and his contact number is [phone]. Mikal' pain on Friday was a 4 out of 10 and most intense around L4 extending bilaterally across the iliac crest. He describes the pain as dull, and it has remained at 4 out of 10 to presentation today. Around noon today a nursing staff member at [place] noticed significant bruising on Mikal' lower back and rear and initiated his presentation to the ED. Upon ED presentation extensive imaging was ordered that was all unremarkable with the exception of a hematoma on abdomen/pelvis CT. The ED consulted general surgery, Dr. Garibay, who decided that surgery was not warranted at this time and to continue with supportive care. The ED also ordered initial troponis that came back negative. After prior consent was obtained from the patient, the ED or dered he receive 2 blood transfusions. The hospitalist team is admitting him to monitor status, largely because of he is currently on blood thinning medication. The ED also ordered troponins that came back negative. Of note, obtaining verbal history from patient provided some challenges due to patient's hearing loss as well as minor speech difficulties, likely due to previous CVA. HOSPITAL COURSE: Mikal was admitted under the care of the hospitalist team to oversee his acute respiratory failure due to CHF exacerbation and to offer supportive care for hematoma status post mechanical fall on 11/22. Patient was given 2 units of pack red blood cells for anemia and his H&H were continually monitored. After the 2 units were transfused. His H&H stabilized and continually improved with each measurement during his inpatient stay. For the decompensated diastolic CHF, patient was put on fluid restriction of 2 L and received IV Lasix. Patient also was put on supplemental oxygen via nasal cannula and as his respiratory status improved throughout his inpatient stay, he was weaned off and began breathing on room air. Patient's Plavix and aspirin were originally held upon admission due to hematoma and anemic status. Being on these 2 antiplatelet medications most likely contributed to the significant size of his hematoma on presentation. During the first few days. Warm compresses were applied to the area. Mikal hematoma hoping to vasodilate locally and encourage outflow and breakup of loud stasis. On day of discharge, the size of Mikal's hematoma has decreased. Before discharge, patient was put back on aspirin, Plavix. Mikal initially had positive troponins on admission, but these were likely false positives. Due to his CHF exacerbation as his troponin curve is now flat and decreased on subsequent measurements.During the course of patient's active diuresis, he developed some hypokalemia and received potassium replacement on 11/29, 1 dose 20 mEq PO. For the first few days of his inpatient stay, patient would continually lie in bed on his left side, likely do to his back, pelvis and rear pain. Towards the end of his inpatient stay, Mikal was able to ambulate more and would routinely sit upright in a chair for meals and reading. Each day brought greater energy and mobility for Mikal. DISCHARGE MEDICATIONS: Please see below. ALLERGIES: Please see below. PHYSICAL EXAMINATION ON DISCHARGE: VITAL SIGNS: Please see below. General Exam: Positive: Alert, Cooperative, No Acute Distress, Other (remains lying on left side in bed as this is the most comfortable position for him) ENT Exam: Positive: Other ENT (hard of hearing) Neck Exam: Positive: Supple; Negative: JVD Chest Exam: Positive: Wheezing (Diffuse); Negative: Rhonchi Heart Exam: Positive: Rate Normal, Regular Rhythm, Normal S2, Murmurs (systolic machine-like murmur right parasternal cardiac listening post); Negative: Bradycardic, Normal S1, Gallops, Rubs Abdomen Exam: Positive: Normal bowel sounds, Soft; Negative: Tenderness Extremity Exam: Positive: Edema (lower extremity and pedal edema bilaterally), Normal pulses (2+ posterior tibial); Negative: Clubbing, Cyanosis Skin Exam: Positive: Other skin issue (large area of ecchymosis approximately 30 cm x 30 cm. It extends roughly from T9 to the initial tuberosities bilatera lly, anterior to posterior. . It also covers width of dorsal body surface ) Neuro Exam: Positive: Strength at 5/5 X4 ext (, 4 out of 5 muscle strength testing of left lower extremity) Psych Exam: Positive: Mood NL, Oriented x 3; Negative: Anxiety LABORATORY DATA: Please see below. IMAGING: Abdomen/pelvis CT with IV contrast there is a superficial subcutaneous soft tissue hematoma in the gluteal region bilaterally, but more so to the left of midline measuring 10.23.317.3 cm. No fracture seen of the visualized osseous structures. No acute posttraumatic abnormality in the abdomen or pelvis. No free air or free fluid. No visceral organ injury. Pelvis x-ray showed degenerative changes without fracture or dislocation. Hip x-ray (AP and lateral- bilateral) showed degenerative changes without fracture or dislocation Head CT showed small old cortical infarct in the right posterior frontal lobe. Old lacunar infarct of the left thalamus. Diffuse atrophy and vascular calcification. No acute intracranial abnormality. Portable chest x-ray- showed cardiomegaly, prior sternotomy. Otherwise no acute disease. Femur x-ray showed no fracture or dislocation. Chest CT showed mild patchy bibasal or atelectasis/infiltrate in the lower lung zones with small bilateral pleural effusions. Mild cardiomegaly. No other acute finding. Cervical spine CT without contrast showed advanced degenerative spondylosis changes. Otherwise, negative CT study of the cervical spine without contrast. No fracture seen. All of the above imaging was performed on Friday, 11/27. The two report's below were performed on Friday, 11/28. Lumbar spine x-ray- scoliosis and advanced degenerative disc disease and facet arthropathy. No traumatic abnormality noted. Spine x-ray- no fracture collapse seen. Degenerative spondylosis changes. PROGNOSIS: [Poor] ACTIVITY: [As tolerated]. DIET: [As tolerated] DISCHARGE PLAN AND OUTPATIENT INSTRUCTIONS: 1. Patient was discharged to the [facility] ([facility]). 2. Patient and caretakers should monitor patient's respiratory status for signs of congestive heart failure exacerbation. Patient was not in need of any oxygen for the final 48 hours of his inpatient stay. He was really put on the oxygen due to acute respiratory failure from CHF exacerbation which resolved. 3. Patient is instructed to follow-up with his primary care physician in 7-10 days. 4. In the event patient symptoms return or worsen, or another medical emergent situation occurs, patient is instructed to return to the emergency department. DISCHARGE CONDITION: [Stable]. TIME SPENT ON DISCHARGE: Greater than 35 minutes. Vital Signs/I&Os Vital Signs Date Time Temp Pulse Resp B/P (MAP) Pulse Ox O2 Delivery O2 Flow Rate FiO2 12/02/18 06:00 97.6 65 20 149/72 (97) 92 11/30/18 09:00 2.0 11/27/18 19:45 Nasal Cannula I&O- Last 24 Hours up to 6 AM 12/02/18 06:00 Intake Total 1838 ml Output Total 500 ml Balance 1338 ml Laboratory Data Labs 24H Laboratory Tests 2 12/02/18 05:27: Nucleated Red Blood Cells % (auto) 0.0, Anion Gap 7L, Glomerular Filtration Rate > 60.0, Blood Urea Nitrogen 21H, Creatinine 1.04, Sodium Level 147H, Potassium Level 3.5, Chloride Level 108H, Carbon Dioxide Level 32, Calcium Level 8.0L CBC/BMP Laboratory Tests 12/02/18 05:27 Red Blood Count 3.52 L, Mean Corpuscular Volume 96.3 H, Mean Corpuscular H emoglobin 30.7, Mean Corpuscular Hemoglobin Concent 31.9 L, Red Cell Distribution Width 17.6 H, Calcium Level 8.0 L Microbiology Microbiology 11/27/18 Blood Culture - Preliminary, Resulted No Growth after 72 hours. All specime... 11/27/18 Blood Culture - Preliminary, Resulted No Growth after 72 hours. All specime... Discharge Medications Scheduled Amiodarone HCl (Amiodarone HCl) 200 Mg Tab, 200 MG PO DAILY, (Reported) Aspirin (Aspirin EC) 81 Mg Tabec, 81 MG PO DAILY, (Reported) Atorvastatin Calcium (Lipitor) 80 Mg Tab, 80 MG PO QHS, (Reported) Cetirizine HCl (Cetirizine HCl) 10 Mg Tablet, 10 MG PO DAILY, (Reported) Clopidogrel Bisulfate (Plavix) 75 Mg Tab, 75 MG PO DAILY, (Reported) Donepezil Hcl (Donepezil HCl Odt) 10 Mg Tab, 10 MG PO QHS, (Reported) Finasteride (Finasteride) 5 Mg Tab, 5 MG PO DAILY, (Reported) Fluticasone Propionate (Flonase Allergy Relief) 9.[address] [place].susp, 2 SPRAY NA DAILY, (Reported) Fluticasone/Vilanterol (Breo Ellipta 100-25 Mcg INH) 1 Each Blst.w.dev, 1 PUFF INH DAILY, (Reported) Furosemide (Furosemide) 40 Mg Tab, 40 MG PO DAILY, (Reported) Lutein (Lutein) 20 Mg Capsule, 1 CAP PO QPM, (Reported) Meclizine Hcl (Meclizine HCl) 25 Mg Chw, 25 MG PO BID, (Reported) Memantine HCl (Namenda) 10 Mg Tab, 10 MG PO BID, (Reported) Mineral Oil/Petrolatum,White (Systane Nighttime Eye Ointment) 1 Oin Oin, 1 OIN OU QHS, (Reported) APPLY 1 CM TO INSIDE LOWER LID Multivitamins (Thera M Plus Tablet) 1 Tab Tab, 1 TAB PO DAILY, (Reported) Potassium Chloride (Potassium Chloride) 10 Meq Tab, 10 MEQ PO DAILY, (Reported) TAKES AT 1200 WITH FOOD Ranitidine HCl (Ranitidine HCl) 300 Mg Tab, 1 TAB PO DAILY, (Reported) Sertraline HCl (Sertraline HCl) 25 Mg Tab, 25 MG PO QHS, (Reported) Tamsulosin HCl (Flomax) 0.4 Mg Cap, 0.4 MG PO DAILY, (Reported) Vit C/E/Zn/Coppr/Lutein/Zeaxan (Preservision Areds 2 Softgel) 1 Each Capsule, 1 EACH PO QPM, (Reported) Scheduled PRN Acetaminophen (Acetaminophen) 325 Mg Tab, 650 MG PO Q8H PRN for PAIN, (Reported) Albuterol Sulfate (Proair Hfa) 108 Mcg/Act Aer, 2 PUFF INH Q4H PRN for SHORTNESS OF BREATH, (Reported) Benzonatate (Tessalon Perle) 100 Mg Capsule, 100 MG PO TID PRN for COUGH, (Reported) Carboxymethylcellulos/Glycerin (Refresh Optive Eye Drops) 1 Russell Russell, 1 RUSSELL OU TID PRN for DRY EYES, (Reported) Loperamide HCl (Imodium A-D) 2 Mg Tablet, 2 MG PO QID PRN for DIARRHEA, (Reported) Melatonin (Melatonin) 5 Mg Tab, 5 MG PO QHS PRN for INSOMNIA, (Reported) TAKE WITH FOOD Psyllium Husk (Psyllium Husk) 1 Pow Pow, 1 TBS PO DAILY PRN for CONSTIPATION, (Reported) WITH A MEAL Trazodone HCl (Trazodone HCl) 50 Mg Tab, 50 MG PO QHS PRN for INSOMNIA, (Reported) Allergies Coded Allergies: No Known Allergies (Unverified , 04/03/18) Attending Note Attending Note I saw and examined the patient. I agree with the finding and the plan of care as documented in the resident's note. I spent 35 mins in counselling the patient and coordinating his discharge. Patient was discharged to subacute rehab at [facility]. Patient did have some acute respiratory failure due to CHF exacerbation but it has now resolved. He not requiring any oxygen for the last 48 hours. KAITLIN ARELLANO PGY-1 Dec 02, 2018 08:11 BILLY HOFFMAN MD Dec 02, 2018 22:04
[2018-12-02] MEDS: TAMSULOSIN 0.4 MG CAP PO SCH (08:40)
[2018-12-02] MEDS: MULTIVITAMINS/MINERALS THERAP 1 TAB PO SCH (08:40)
[2018-12-02] MEDS: MEMANTINE 5MG TABLET (NAMENDA) PO SCH (08:40)
[2018-12-02] MEDS: FAMOTIDINE 20 MG TAB PO SCH (08:40)
[2018-12-02] MEDS: CLOPIDOGREL 75 MG TAB PO SCH (08:40)
[2018-12-02] MEDS: AMIODARONE 200 MG TAB (PACERONE) PO SCH (08:41)
[2018-12-02] MEDS: CETIRIZINE (ZyrTEC) 10 MG TAB PO SCH (08:41)
[2018-12-02] MEDS: FLUTICASONE PROP 0.05% NASAL SPRAY 16 GM (FLONASE) SCH (08:41)
[2018-12-02] MEDS: ASPIRIN 81 MG ENTERIC TAB PO SCH (08:41)
[2018-12-02] MEDS: FINASTERIDE 5 MG TAB PO SCH (08:41)
[2018-12-02] MEDS: MECLIZINE 25 MG TABLET PO SCH (08:41)
[2018-12-02] MEDS ORDERED: FUROSEMIDE 40 MG TAB PO SCH (09:00)
== END 2018-12-02 11:07 | DRG 813 ==
LOC: EDBD 12:50 → M ED 12:50 → M ED INP 16:32 → M MSPAV 11-29 16:56
PROVIDERS: ADMIT Internal Medicine; ATTEND Internal Medicine Nephrology
PROC: 30233N1 Transfusion of Nonautologous Red Blood Cells into Peripheral Vein, Percutaneous Approach (ICD-10-PCS; principal; 2018-11-27)
DX: D68.32 Hemorrhagic disorder due to extrinsic circulating anticoagulants (principal); I50.33 Acute on chronic diastolic (congestive) heart failure; I13.0 Hypertensive heart and chronic kidney disease with heart failure and stage 1 through stage 4 chronic kidney disease, or unspecified chronic kidney disease; D62 Acute posthemorrhagic anemia; S30.0XXA Contusion of lower back and pelvis, initial encounter; Z79.82 Long term (current) use of aspirin; Z79.899 Other long term (current) drug therapy; F32.9 Major depressive disorder, single episode, unspecified; I11.0 Hypertensive heart disease with heart failure; E78.5 Hyperlipidemia, unspecified; I48.0 Paroxysmal atrial fibrillation; J45.909 Unspecified asthma, uncomplicated; Z86.73 Personal history of transient ischemic attack (TIA), and cerebral infarction without residual deficits; I35.0 Nonrheumatic aortic (valve) stenosis; H35.30 Unspecified macular degeneration; G20 Parkinson's disease; F02.80 Dementia in other diseases classified elsewhere, unspecified severity, without behavioral disturbance, psychotic disturbance, mood disturbance, and anxiety; I71.2 Thoracic aortic aneurysm, without rupture; M19.90 Unspecified osteoarthritis, unspecified site; N40.0 Benign prostatic hyperplasia without lower urinary tract symptoms; I65.23 Occlusion and stenosis of bilateral carotid arteries; Z95.1 Presence of aortocoronary bypass graft; W18.30XA Fall on same level, unspecified, initial encounter; Y92.129 Unspecified place in nursing home as the place of occurrence of the external cause; N18.3 Chronic kidney disease, stage 3 (moderate); K21.9 Gastro-esophageal reflux disease without esophagitis

== ENCOUNTER → 2018-12-02 | Outpatient (REF) ==
[~2018-12-02] MED LIST changes: +BREO1INH INH; +CETI10TA4 PO; +FLON1SPR; +LOPE2TAB11 PO; +LUTE20CA8 PO; +PRES10CA2 PO; +TESS100C PO
--- NOTE | 2018-12-03 13:20 | REP ---
Chest x-ray: Sitting AP view. History: CHF. Shortness of breath. Findings: Median sternotomy wires are noted. There is a loop recorder overlying the left diaphragm. Clothing artifact is seen to the left of mid chest in the form of a metallic zipper pull. Mildly enlarged heart is again seen. Left hemidiaphragm is somewhat elevated. The lungs are under aerated with bibasilar plate-like atelectasis. No definite infiltrate. Markings are little more prominent in the left base than the right. Impression: Low level of inspiration. Bibasilar discoid atelectasis left greater than right. It is difficult to completely exclude an infiltrate in the left base. Prior sternotomy. Mild cardiomegaly. Electronically Signed by Dimitrios Leung MD 12/03/2018 07:21 P
== END ==
PROVIDERS: ATTEND Family Medicine
DX: I50.9 Heart failure, unspecified (principal)

== ENCOUNTER → 2018-12-03 | Outpatient (REF) ==
--- NOTE | 2018-12-03 13:47 | REP ---
Chest, single AP view: Comparison is 12/02/2018. The patient is tilted to the left and rotated to the left as previously. There is an incomplete inspiratory effort with under aeration of the lung coley. No definite focal infiltrates are identified. Cardiomegaly and sternotomy wires are seen. Impression: There is no interval change per Electronically Signed by Bijan Salas MD 12/03/2018 01:39 P
== END ==
PROVIDERS: ATTEND Family Medicine
DX: I50.9 Heart failure, unspecified (principal)

== ENCOUNTER → 2018-12-07 | Outpatient (REF) ==
[~2018-12-07] MED LIST changes: +ARIC1TAB2 PO; +BISA10SU20 PR; +DEPA1TAB3 PO; +ENEMENE PR; -LOPE2TAB11 PO; +LOPE2TAB12 PO; -MECL-68; +MECL-86 PO; +MECL1TAB31; +MILKSUS3 PO; +OMEP1CAP73; -OMEP20CA4; +PHARMACY COMMENT; +SERT25TA21 PO; +SERT25TA85 PO; -SERT25TA88 PO; +SPIR-10 PO; +Sodium Chloride Nasal Spray
[2018-12-08 09:28] LABS: HEMATOCRIT 39.8 % (42.0-52.0); HEMOGLOBIN 12.5 g/dl (13.5-17.5); MEAN CORPUSCULAR HEMOGLOBIN 31.4 pg (27.0-33.0); MEAN CORPUSCULAR HGB CONC 31.4 g/dl (32.0-36.5); PLATELET COUNT, AUTOMATED 186 10^3/uL (150-450); RED BLOOD COUNT 3.98 10^6/uL (4.30-6.10); WHITE BLOOD COUNT 5.4 10^3/uL (4.0-10.0)
[2018-12-08 09:47] LABS: BLOOD UREA NITROGEN 17 MG/DL (7-18); CALCIUM LEVEL 8.5 MG/DL (8.8-10.2); CARBON DIOXIDE LEVEL 29 MEQ/L (21-32); CHLORIDE LEVEL 110 MEQ/L (98-107); CREATININE FOR GFR 1.08 MG/DL (0.70-1.30); GLOMERULAR FILTRATION RATE > 60.0 (>35); GLUCOSE, FASTING 97 MG/DL (70-100); NT-PRO BNP 1989 PG/ML (<450); POTASSIUM SERUM 3.6 MEQ/L (3.5-5.1); SODIUM LEVEL 146 MEQ/L (136-145)
== END ==
PROVIDERS: ATTEND Physician Assistant
DX: I50.9 Heart failure, unspecified (principal)

== ENCOUNTER → 2018-12-15 | Outpatient (REF) ==
[~2018-12-15] MED LIST changes: -ARIC1TAB2 PO; -BISA10SU20 PR; -DEPA1TAB3 PO; -ENEMENE PR; +LOPE2TAB11 PO; -LOPE2TAB12 PO; +MECL-68; -MECL-86 PO; -MECL1TAB31; -MILKSUS3 PO; -OMEP1CAP73; +OMEP20CA4; -PHARMACY COMMENT; -SERT25TA21 PO; -SERT25TA85 PO; +SERT25TA88 PO; -SPIR-10 PO; -Sodium Chloride Nasal Spray
[2018-12-15 08:39] LABS: HEMOGLOBIN 12.4 g/dl (13.5-17.5); MEAN CORPUSCULAR HEMOGLOBIN 30.4 pg (27.0-33.0); MEAN CORPUSCULAR HGB CONC 31.8 g/dl (32.0-36.5); MEAN CORPUSCULAR VOLUME 95.6 fl (80.0-96.0); PLATELET COUNT, AUTOMATED 185 10^3/uL (150-450); RED BLOOD COUNT 4.08 10^6/uL (4.30-6.10); WHITE BLOOD COUNT 5.8 10^3/uL (4.0-10.0)
[2018-12-15 09:05] LABS: BLOOD UREA NITROGEN 17 MG/DL (7-18); CALCIUM LEVEL 8.1 MG/DL (8.8-10.2); CARBON DIOXIDE LEVEL 31 MEQ/L (21-32); CHLORIDE LEVEL 105 MEQ/L (98-107); CREATININE FOR GFR 0.97 MG/DL (0.70-1.30); GLOMERULAR FILTRATION RATE > 60.0 (>35); GLUCOSE, FASTING 79 MG/DL (70-100); NT-PRO BNP 2026 PG/ML (<450); POTASSIUM SERUM 3.3 MEQ/L (3.5-5.1); SODIUM LEVEL 144 MEQ/L (136-145)
== END ==
PROVIDERS: ATTEND Family Medicine
DX: I50.9 Heart failure, unspecified (principal)

== ENCOUNTER → 2018-12-22 | Outpatient (REF) ==
[~2018-12-22] MED LIST changes: -LOPE2TAB11 PO; +LOPE2TAB12 PO
[2018-12-22 10:47] LABS: HEMATOCRIT 43.3 % (42.0-52.0); HEMOGLOBIN 13.4 g/dl (13.5-17.5); MEAN CORPUSCULAR HEMOGLOBIN 29.9 pg (27.0-33.0); MEAN CORPUSCULAR HGB CONC 30.9 g/dl (32.0-36.5); MEAN CORPUSCULAR VOLUME 96.7 fl (80.0-96.0); PLATELET COUNT, AUTOMATED 218 10^3/uL (150-450); RED BLOOD COUNT 4.48 10^6/uL (4.30-6.10); WHITE BLOOD COUNT 4.1 10^3/uL (4.0-10.0)
[2018-12-22 11:16] LABS: CALCIUM LEVEL 8.5 MG/DL (8.8-10.2); CREATININE FOR GFR 1.28 MG/DL (0.70-1.30); GLOMERULAR FILTRATION RATE 56.3 (>35); POTASSIUM SERUM 3.9 MEQ/L (3.5-5.1)
== END ==
PROVIDERS: ATTEND Family Medicine
DX: E87.6 Hypokalemia (principal); Z79.899 Other long term (current) drug therapy

== ENCOUNTER → 2019-01-05 | Outpatient (REF) ==
[2019-01-05 08:42] LABS: HEMATOCRIT 38.7 % (42.0-52.0); HEMOGLOBIN 12.4 g/dl (13.5-17.5); MEAN CORPUSCULAR HEMOGLOBIN 30.4 pg (27.0-33.0); MEAN CORPUSCULAR VOLUME 94.9 fl (80.0-96.0); PLATELET COUNT, AUTOMATED 157 10^3/uL (150-450); RED BLOOD COUNT 4.08 10^6/uL (4.30-6.10); WHITE BLOOD COUNT 5.3 10^3/uL (4.0-10.0)
[2019-01-05 09:05] LABS: BLOOD UREA NITROGEN 30 MG/DL (7-18); CALCIUM LEVEL 8.4 MG/DL (8.8-10.2); CARBON DIOXIDE LEVEL 30 MEQ/L (21-32); CHLORIDE LEVEL 110 MEQ/L (98-107); CREATININE FOR GFR 1.21 MG/DL (0.70-1.30); GLOMERULAR FILTRATION RATE > 60.0 (>35); GLUCOSE, FASTING 71 MG/DL (70-100); NT-PRO BNP 675 PG/ML (<450); POTASSIUM SERUM 3.9 MEQ/L (3.5-5.1); SODIUM LEVEL 147 MEQ/L (136-145); VALPROIC ACID (DEPAKOTE) 29.6 UG/ML (50.0-100.0)
== END ==
PROVIDERS: ATTEND Family Medicine
DX: I50.9 Heart failure, unspecified (principal)

== ENCOUNTER → 2019-02-03 | Outpatient (REF) ==
[2019-02-03 09:29] LABS: HEMATOCRIT 43.8 % (42.0-52.0); HEMOGLOBIN 14.2 g/dl (13.5-17.5); MEAN CORPUSCULAR HEMOGLOBIN 30.5 pg (27.0-33.0); MEAN CORPUSCULAR HGB CONC 32.4 g/dl (32.0-36.5); MEAN CORPUSCULAR VOLUME 94.2 fl (80.0-96.0); PLATELET COUNT, AUTOMATED 171 10^3/uL (150-450); RED BLOOD COUNT 4.65 10^6/uL (4.30-6.10); WHITE BLOOD COUNT 4.9 10^3/uL (4.0-10.0)
[2019-02-03 10:06] LABS: CALCIUM LEVEL 8.6 MG/DL (8.8-10.2); CREATININE FOR GFR 1.55 MG/DL (0.70-1.30); GLOMERULAR FILTRATION RATE 45.2 (>35); POTASSIUM SERUM 3.9 MEQ/L (3.5-5.1)
== END ==
PROVIDERS: ATTEND Physician Assistant
DX: I50.9 Heart failure, unspecified (principal)

== ENCOUNTER → 2019-02-10 | Outpatient (REF) ==
[~2019-02-10] MED LIST changes: +BISA10SU20 PR; +DEPA1TAB3 PO; +ENEMENE PR; +MECL-86 PO; +MILKSUS3 PO; +PHARMACY COMMENT; +SERT25TA85 PO; +SPIR-10 PO
[2019-02-10 10:49] LABS: ALBUMIN 2.7 GM/DL (3.2-5.2); BILIRUBIN,TOTAL 0.8 MG/DL (0.2-1.0); CALCIUM LEVEL 8.1 MG/DL (8.8-10.2); CREATININE FOR GFR 1.52 MG/DL (0.70-1.30); FREE T4 1.41 NG/DL (0.76-1.46); GLOMERULAR FILTRATION RATE 46.2 (>35); POTASSIUM SERUM 3.8 MEQ/L (3.5-5.1); THYROID STIMULATING HORMONE 2.73 uIU/ML (0.358-3.740); TOTAL PROTEIN 6.4 GM/DL (6.4-8.2)
== END ==
PROVIDERS: ATTEND Family Medicine
DX: I50.9 Heart failure, unspecified (principal)

== ENCOUNTER 2019-02-12 17:41 | Inpatient (IN) | payer MEDICARE ==
[~2019-02-12] VITALS: Ht 170.2 cm; Wt 93.4 kg
[~2019-02-12 17:41] MED LIST changes: -BISA10SU20 PR; -DEPA1TAB3 PO; -ENEMENE PR; -MECL-86 PO; +MECLIZINE 25 MG TABLET PO SCH; -MILKSUS3 PO; -PHARMACY COMMENT; -SERT25TA85 PO; -SPIR-10 PO; -Sodium Chloride Nasal Spray
[2019-02-12 18:14] LABS: BASO % 0.4 % (0.0-1.0); EOS # 0.1 10^3/uL (0.0-0.5); EOS % 1.7 % (0.0-3.0); HEMATOCRIT 41.9 % (42.0-52.0); HEMOGLOBIN 13.8 g/dl (13.5-17.5); LYMPH # 0.8 10^3/uL (1.5-5.0); LYMPH % 14.7 % (24.0-44.0); MEAN CORPUSCULAR HEMOGLOBIN 31.5 pg (27.0-33.0); MEAN CORPUSCULAR HGB CONC 32.9 g/dl (32.0-36.5); MEAN CORPUSCULAR VOLUME 95.7 fl (80.0-96.0); MONO # 1.8 10^3/uL (0.0-0.8); MONO % 35.5 % (0.0-5.0); NEUTROPHILS # 2.4 10^3/uL (1.5-8.5); NEUTROPHILS % 47.3 % (36.0-66.0); PLATELET COUNT, AUTOMATED 120 10^3/uL (150-450); RED BLOOD COUNT 4.38 10^6/uL (4.30-6.10); WHITE BLOOD COUNT 5.2 10^3/uL (4.0-10.0)
[2019-02-12 18:25] LABS: INR 1.24; PROTHROMBIN TIME 15.3 SECONDS (11.8-14.0)
[2019-02-12 18:26] LABS: PARTIAL THROMBOPLASTIN TIME 30.9 SECONDS (25.0-38.4)
[2019-02-12] MEDS ORDERED: LIDOCAINE 1% MDV 20ML VIAL As Ordered ONE (18:44)
[2019-02-12] MEDS ORDERED: LIDOCAINE 1% MDV 20ML VIAL SC ONE (18:45)
[2019-02-12 18:46] LABS: BLOOD UREA NITROGEN 36 MG/DL (7-18); CALCIUM LEVEL 8.2 MG/DL (8.8-10.2); CARBON DIOXIDE LEVEL 28 MEQ/L (21-32); CHLORIDE LEVEL 106 MEQ/L (98-107); CK-MB VALUE MASS 2.5 NG/ML (<3.6); CPK CREATINE PHOSPHOKINASE 100 U/L (39-308); CREATININE FOR GFR 1.78 MG/DL (0.70-1.30); GLOMERULAR FILTRATION RATE 38.5 (>35); GLUCOSE, FASTING 115 MG/DL (70-100); POTASSIUM SERUM 4.1 MEQ/L (3.5-5.1); SODIUM LEVEL 143 MEQ/L (136-145); TROPONIN I < 0.02 NG/ML (< 0.10)
[2019-02-12] MEDS ORDERED: MILKSUS3 PO (18:54)
[2019-02-12] MEDS ORDERED: MECL-86 PO (18:54)
[2019-02-12] MEDS ORDERED: SERT25TA85 PO (18:54)
[2019-02-12] MEDS ORDERED: DEPA1TAB3 PO (18:54)
[2019-02-12] MEDS ORDERED: SPIR-10 PO (18:54)
[2019-02-12] MEDS ORDERED: ENEMENE PR (18:54)
[2019-02-12] MEDS ORDERED: BISA10SU20 PR (18:54)
[2019-02-12] MEDS ORDERED: PHARMACY COMMENT (18:56)
[2019-02-12] MEDS ORDERED: ceFAZolin SOD 1 GM in D5W MINI-BAG PLUS 50 ML IV ONE (20:00)
--- NOTE | 2019-02-12 20:17 | REP ---
AP LATERAL CHEST: 02/12/2019. Comparison: AP Portable chest 12/11/2018. Clinical history: Syncope. Findings: Two frontal and one lateral view were provided. Lung coley on the frontal view are grossly overpenetrated. Lateral view shows adequate aeration and no evidence of pneumothorax or any definite infiltrate. No blunting of CP angles to suggest effusion. Some minor basilar fibrotic changes seen. Heart size unchanged. There are sternotomy wires in the mediastinum as before. Calcified aortic arch and some tortuosity noted. Airway intact. Left upper quadrant surgical clips noted. Some degenerative changes in the spine without compression deformity. Appears to be a loop recorder in the left chest wall. Impression: 1. Lung coley overpenetrated on the frontal view, but no definite acute infiltrate, effusion or katerine edema. 2. Heart size unchanged with sternotomy wires and a tortuous calcified aorta. 3. Degenerative changes in the spine, left upper quadrant surgical clips and evidence suggesting a loop recorder in the left chest wall noted. Electronically Signed by Kali Syed MD 02/12/2019 08:32 P
--- NOTE | 2019-02-12 20:18 | REP ---
RIGHT SHOULDER: 02/12/2019. Clinical history: Trauma. Findings: Two views of the shoulder were obtained. There is a superior riding humeral head on the glenoid suggesting some degree of rotator cuff insufficiency, osteoarthritic changes with spurring inferiorly at the glenoid and humeral head. Inferior spurs from the clavicle and acromion noted with soft tissue calcifications at the superior margin of the AC joint likely intra-articular. The clavicle without fracture. Visualized ribs and scapula intact. Humeral head and proximal humeral shaft without focal lesion. Impression: 1. AC and glenohumeral joint degenerative changes with findings suggesting chronic rotator cuff insufficiency. I see no definite fracture. Electronically Signed by Kali Syed MD 02/12/2019 08:32 P
--- NOTE | 2019-02-12 20:23 | ECGEPIP ---
[facility] - ED Test Date: 2019-02-12 Pat Name: GIL SANTIAGO Department: Room: - Gender: Male Pipe Buffer: armani : [id number] Requested By: NELLY Garcia Order Number: [id number] Reading MD: Mc Guzman Measurements Intervals Silt Rate: 60 P: -40 WV: 169 QRS: -58 QRSD: 156 T: 116 QT: 494 QTc: 494 Interpretive Statements SINUS RHYTHM INTRAVENTRICULAR CONDUCTION DELAY LAFB SIMILAR TO 11/27/18 Electronically Signed on 02-12-2019 20:22:41 EDT by Mc Guzman
[2019-02-12] MEDS ORDERED: ATORVASTATIN 20 MG TAB PO SCH (21:00)
[2019-02-12] MEDS ORDERED: SERTRALINE HCL 25 MG TABLET PO SCH (21:00)
[2019-02-12] MEDS ORDERED: CETIRIZINE (ZyrTEC) 10 MG TAB PO SCH (21:00)
[2019-02-12] MEDS ORDERED: DONEPEZIL 5 MG TAB PO SCH (21:00)
--- NOTE | 2019-02-12 21:25 | HPEPDOC ---
[facility] Medical History & Physical Date of Admission Feb 12, 2019 Date of Service: Feb 12, 2019 Primary Care Physician: KARI HOFFMAN MD Attending Physician: EDUAR ELIZALDE MD History and Physical CHIEF COMPLAINT: Syncope, head injury HISTORY OF PRESENT ILLNESS: Patient is an 88-year-old male who presents to the emergency departme today from from assisted living at [facility] with a chief complaint of syncope and fall. Patient has an extensive past medical history, most significant for hypertension, CVA, Alzheimer's dementia, abdominal and a descending aortic aneurysms, macular degeneration, HFpEF, paroxysmal atrial fibrillation (on anti-coagulation), aortic stenosis, carotid artery stenosis and coronary artery disease requiring a three-vessel bypass. Patient states that he was in the bathroom when he became dizzy and fell to the ground from a standing height, landing on his face. Patient states that he did not lose consciousness and was able to immediately call for help. Patient was noted to have multiple facial lacerations. EMS was contacted and the patient was transported to the emergency department for further evaluation and treatment. In the emergency department, patient's 2 facial lacerations were closed with suture. Minor skin tears on his right forearm recovered and wrapped with gauze. CBC was negative for any acute abnormalities. His chemistries did demonstrate BUN/creatinine of 36/1.78. Recent outpatient CMP shows a creatinine of 1.3. Cardiac markers were negative. An EKG was performed demonstrated normal sinus rhythm. Vitals were stable. Chest x-ray did not indicate any acute disease, shoulder plain films are negative for fracture, maxillofacial, head, cervical spine CT was performed and remains pending. PAST MEDICAL HISTORY: Depression Hypertension TIA/CVA Alzheimer's dementia Abdominal aortic aneurysm measuring 3.6 cm Ascending aortic aneurysm measuring 4.1 cm Macular degeneration Diastolic congestive heart failure Spinal stenosis of the cervical spine Hyperlipidemia Osteoarthritis BPH Paroxysmal atrial fibrillation Reactive airway disease Coronary artery disease, three-vessel catheterization Aortic stenosis Carotid stenosis GERD CK D stage III PAST SURGICAL HISTORY: Total right knee replacement, 2004 Abdominal aortic aneurysm bypass, 2007 Hernia repair, 2008 Carpal tunnel, 2008 Colon surgery, 2008 Cataract surgery, 2009 Three-vessel bypass Cardiac catheterization SOCIAL HISTORY: Marital status: Resides in: Assisted living at [facility] Children: Patient has 7 living children. Patient's son did present with him to the emergency department. Employment: Patient is retired Tobacco use: Patient denies any history of tobacco use ETOH: Patient denies alcohol use or recent intoxication Illicit drug use: Patient denies any illicit/IV drug use Other relevant social factors: Of note, patient is very hard of hearing. He does have hearing aids. However they were not brought with him to the hospital. Patient also has difficulty with his vision secondary to glaucoma. Patient has been utilizing a wheelchair at assisted living in order to ambulate. FAMILY HISTORY: Father: , ischemic heart disease, coronary artery disease, hypertension, hyperlipidemia, blood clots Mother: , ischemic heart disease, hypertension Siblings: Brother, , ischemic heart disease, sisters 2, alive, kidney disease ALLERGIES: Please see below. REVIEW OF SYSTEMS: CONSTITUTIONAL: Patient reports an intentional weight loss of approximately 12 pounds over the last month. Patient also admits to some decreased appetite. He denies any fevers, chills, night sweats or generalized fatigue HEENT: Reports very mild diffuse headache, patient does have difficulty with vision secondary to glaucoma, though he denies any acute changes. Patient denies any difficulty hearing, no tinnitus. Patient denies any difficulty swallowing or associated sore throat. CARDIOVASCULAR: Patient denies chest pain, palpitations, inappropriate tachycardia. Patient does carry a history of paroxysmal atrial fibrillation for which he is anticoagulated RESPIRATORY: Patient denies any difficulty breathing, shortness of breath, recent cough or wheeze. Denies any hemoptysis. No orthopnea or paroxysmal matern al dyspnea. GASTROINTESTINAL: Patient denies any nausea, vomiting, reflux, abdominal pain/cramping, changes to bowel form or frequency. GENITOURINARY: She carries a history of BPH and reports difficulty emptying his bladder. SKIN: Patient does have a laceration along the bridge of his nose and forehead. Some minor skin tears noted on patient's left forearm. He also has a 2.5 cm diameter circular bruise on his left inner thigh. Some minor scrapes to his right knee. Patient was seen by dermatology today for review of multiple skin lesions. Biopsy was performed. MUSCULOSKELETAL: Patient denies any joint or muscle pain. NEUROLOGICAL: Patient is alert and oriented to person and place. Patient does have a degree of baseline dementia. Patient's son reports that his mental status has seemingly slowly decreased since he suffered a similar fall in November 2018. Son states that patient is currently at his recent baseline. Denies any numbness, tingling or paresthesias PSYCHIATRIC: History of depression, no active SI or HI. Patient denies any depressive symptoms at this time HOME MEDICATIONS: Please see below. PHYSICAL EXAMINATION: VITAL SIGNS: Temperature 97.0 F, pulse 62, respiratory rate 16, blood pressure 150/70 (97), pulse oximetry 97% on room air. GENERAL APPEARANCE: Patient was interviewed and examined in the emergency department. Patient's son was at bedside. Of note, patient is extremely hard of hearing and requires extremely loud talking directly into his ear. Patient is alert and oriented to person and place. Patient was able to answer questions appropriately and actively participate in his care. PERRLA, EOMI, posterior phar ynx free of erythema or exudate. Patient is noted to have poor dentition. HEENT: Patient's calvarium is normocephalic and atraumatic. No obvious signs of bruising or swelling. No tenderness. Patient does have a 2 cm laceration across the bridge of his nose. And a slightly smaller laceration above his forehead. Recent sutures from urgent department noted. Bandage on patient's right pinna from dermatologic biopsy today noted. Naris packed. CARDIOVASCULAR: Regular rate and rhythm, normal S1 and S2, 2/6 systolic ejection murmur noted LUNGS: Clear to auscultation bilaterally, free of any wheezes rales or rhonchi, good air movement throughout. ABDOMEN: Soft, nontender, nondistended, no organomegaly appreciated MUSCULOSKELETAL: EXTREMITIES: 2.5 cm circular bruise noted on patient's left anterior thigh. Small skin tears (wrapped) on patient's right forearm. Electronic Wirer's grapes on patient's right knee. Radial and posterior tibial pulses palpated bilaterally. 1+ pitting edema in the lower extremities bilaterally. No calf tenderness. NEUROLOGICAL: Alert and oriented to person and place. At recent baseline mental status per patient's son. Nurse Prn strength symmetric, 5 out of 5. Cranial nerves grossly intact. 3 out of 5 strength in lower extremities. PSYCHIATRIC: Mood and affect are appropriate LABORATORY DATA: See below. IMAGING: Chest x-ray (02/12/19): No definite acute infiltrate, effusion or edema. Heart size is unchanged her sternotomy wires and a tortuous calcified aorta. Degenerative changes in the spine and a left upper quadrant surgical clips and evidence of a loop recorder. Shoulder x-ray (02/12/19): Acromioclavicular and glenohumeral joint degenerative changes with findings suggestive of chronic rotator cuff insufficiency. No definite fracture. Cervical spine CT (02/12/19): Chronic small intra-articular marginal fracture right occipital condyle, stable. Anterior subluxation of right C1 lateral mass on C2, stable degenerative changes. No acute cervical spinal bony injury identified. Head CT (02/12/19): Chronic superior right frontal superior frontal sulcus and cortical infarction. Age-appropriate supratentorial infratentorial atrophy. Mild chronic white matter microvascular ischemic disease. No acute intracranial i njury identified. Maxillofacial CT (02/12/19): Superior anterior mildly displaced nasal septal fracture. Nondisplaced/nondepressed nasal tip fractures. ASSESSMENT: Patient is an 88-year-old gentleman who presented to the emergency department after sustaining a physiologic fall from standing height on the bathroom at assisted living where he resides. Patient has an extensive past medical history, significant for coronary artery disease requiring a 3 vessel bypass graft, history of TIA and CVA, and severe carotid artery stenosis. Lacerations to patient's nose and forehead closed emergency department with suture. Patient noted to the hospitalist service for further evaluation of his syncope. PLAN: Syncope, multifactorial -PCU admission with telemetry monitoring. -History of paroxysmal atrial fibrillation. Normal sinus rhythm on EKG. Continue to monitor for pauses and bradycardia arrhythmias. -Patient has a history of fall with subsequent hematoma in November of this year. -CVA remains on the differential given patient's history and obvious atherosclerotic risk. Benign physical and neurologic examination. CT of the patient's head negative for any acute pathology. Consider MRI. Patient is already on dual antiplatelet therapy. Continue neuro checks. -Orthostatics ordered to rule out endovascular fluid depletion. Patient did not appear dehydrated on examination. No history of nausea or vomiting or diarrhea. -Consider repeat echocardiogram, last in 2015 showing EF of 50 %. Patient also has a history of aortic stenosis which may have progressed. -Patient has a history of significant bilateral carotid artery stenosis, consider repeat U/S. HFpEF -Last echo performed on 12/16/15 demonstrated mild hypokinesia of anterior apical wall with ejection fraction of 50% -Continue patient's home high intensity statin, spironolactone and oral Lasix. Carotid stenosis -Last carotid ultrasound performed in 07/2017, demonstrate significant left internal carotid artery disease, occlusion of the right internal carotid artery at its origin, 35% stenosis of the external carotids with patent grafts. -Consider repeat carotid ultrasound. Chronic kidney disease stage III -BUN/creatinine measured at 3.6/1.78. Recent outpatient creatinine of 1.3 -Begin IV fluid rehydration with normal saline BPH -Continue patient's home Flomax and finasteride GERD -Continue patient's home H2 cyrus Alzheimer's dementia -Continue with home amantadine and donepezil Paroxysmal atrial fibrillation. -EKG demonstrates normal sinus rhythm, rate controlled -Continue patient on home amiodarone -PCU admission with telemetry monitoring Weight loss -Encourage enteral feeding -Restricted sodium diet -PT consult to prevent deconditioning Obesity -BMI > 32.1 -Patient reports intentional 12 lb weight loss over last 4-6 weeks in an effort to improve balance an coordination -Continue to encourage enteral feeding as this may have also contributed to his syncopal episode. DVT prophylaxis: TEDs and sequentials CODE STATUS: DNR/DNI Vital Signs Vital Signs Date Time Temp Pulse Resp B/P (MAP) Pulse Ox O2 Delivery O2 Flow Rate FiO2 02/12/19 19:56 97.0 02/12/19 19:15 150/71 (97) 02/12/19 19:11 62 16 97 02/12/19 17:56 Room Air Laboratory Data Labs 24H Laboratory Tests 2 02/12/19 18:03: Immature Granulocyte % (Auto) 0.4, White Blood Count 5.2, Red Blood Count 4.38, Hemoglobin 13.8, Hematocrit 41.9L, Mean Corpuscular Volume 95.7, Mean Corpuscular Hemoglobin 31.5, Mean Corpuscular Hemoglobin Concent 32.9, Red Cell Distribution Width 17.7H, Platelet Count 120L, Neutrophils (%) (Auto) 47.3, Lymphocytes (%) (Auto) 14.7L, Monocytes (%) (Auto) 35.5H, Eosinophils (%) (Auto) 1.7, Basophils (%) (Auto) 0.4, Neutrophils # (Auto) 2.4, Lymphocytes # (Auto) 0. 8L, Monocytes # (Auto) 1.8H, Eosinophils # (Auto) 0.1, Basophils # (Auto) 0.0, Nucleated Red Blood Cells % (auto) 0.0, Prothrombin Time 15.3H, Prothromb Time International Ratio 1.24, Activated Partial Thromboplast Time 30.9, Anion Gap 9, Glomerular Filtration Rate 38.5, Blood Urea Nitrogen 36H, Creatinine 1.78H, Sodium Level 143, Potassium Level 4.1, Chloride Level 106, Carbon Dioxide Level 28, Calcium Level 8.2L, Total Creatine Kinase 100, Creatine Kinase MB 2.5, Creatine Kinase MB Relative Index 2.50, Troponin I < 0.02, Thyroid Stimulating Hormone (TSH) 2.080 CBC/BMP Laboratory Tests 02/12/19 18:03 Red Blood Count 4.38, Mean Corpuscular Volume 95.7, Mean Corpuscular Hemoglobin 31.5, Mean Corpuscular Hemoglobin Concent 32.9, Red Cell Distribution Width 17.7 H, Neutrophils (%) (Auto) 47.3, Lymphocytes (%) (Auto) 14.7 L, Monocytes (%) (Auto) 35.5 H, Eosinophils (%) (Auto) 1.7, Basophils (%) (Auto) 0.4, Neutrophils # (Auto) 2.4, Lymphocytes # (Auto) 0.8 L, Monocytes # (Auto) 1.8 H, Eosinophils # (Auto) 0.1, Basophils # (Auto) 0.0, Calcium Level 8.2 L, Total Creatine Kinase 100 Home Medications Scheduled Amiodarone HCl (Amiodarone HCl) 200 Mg Tab, 200 MG PO DAILY Aspirin (Aspirin EC) 81 Mg Tabec, 81 MG PO DAILY Atorvastatin Calcium (Lipitor) 80 Mg Tab, 80 MG PO QHS Cetirizine HCl (Cetirizine HCl) 10 Mg Tablet, 10 MG PO QHS Clopidogrel Bisulfate (Plavix) 75 Mg Tab, 75 MG PO DAILY Divalproex Sodium (Depakote) 500 Mg Tablet.dr, 500 MG PO QHS Donepezil Hcl (Donepezil HCl Odt) 10 Mg Tab, 10 MG PO QHS Finasteride (Finasteride) 5 Mg Tab, 5 MG PO DAILY Fluticasone Propionate (Flonase Allergy Relief) 9.9 Ml [place].susp, 2 SPRAY NA DAILY Fluticasone/Vilanterol (Breo Ellipta 100-25 Mcg INH) 1 Each Blst.w.dev, 1 PUFF INH DAILY Furosemide (Furosemide) 40 Mg Tab, 40 MG PO BID Meclizine HCl (Meclizine HCl) 25 Mg Tablet, 25 MG PO BID Memantine HCl (Namenda) 10 Mg Tab, 10 MG PO BID Potassium Chloride (Potassium Chloride) 10 Meq Tab, 10 MEQ PO QHS Ranitidine HCl (Ranitidine HCl) 300 Mg Tab, 1 TAB PO DAILY Sertraline Hcl (Sertraline HCl) 25 Mg Tablet, 25 MG PO QHS Spironolactone (Spironolactone) 25 Mg Tablet, 12.5 MG PO DAILY Tamsulosin HCl (Flomax) 0.4 Mg Cap, 0.4 MG PO DAILY Vit C/E/Zn/Coppr/Lutein/Zeaxan (Preservision Areds 2 Softgel) 1 Each Capsule, 1 EACH PO QHS Scheduled PRN Acetaminophen (Acetaminophen) 325 Mg Tab, 650 MG PO Q8H PRN for PAIN Albuterol Sulfate (Proair Hfa) 108 Mcg/Act Aer, 2 PUFF INH Q4H PRN for SHORTNESS OF BREATH Bisacodyl (Bisacodyl) 10 Mg Supp.rect, 10 MG UT DAILY PRN for CONSTIPATION Carboxymethylcellulos/Glycerin (Refresh Optive Eye Drops) 1 Russell Russell, 1 DROP OU TID PRN for DRY EYES Magnesium Hydroxide (Milk of Magnesia) 400 Mg/5 Ml Oral.susp, 30 ML PO DAILY PRN for CONSTIPATION Melatonin (Melatonin) 5 Mg Tab, 5 MG PO QHS PRN for INSOMNIA TAKE WITH FOOD Psyllium Husk (Psyllium Husk) 1 Pow Pow, 1 TBS PO DAILY PRN for CONSTIPATION WITH A MEAL Sodium Phosphate,[place]-Dibasic (Enema) 133 Ml Enema, 1 KIRK UT DAILY PRN for CONSTIPATION Allergies Coded Allergies: No Known Allergies (Unverified , 04/03/18) A-FIB/CHADSVASC A-FIB History Current/History of A-Fib/PAF?: Yes Current PO Anticoag Therapy: Yes GME ATTESTATION GME ATTESTATION My faculty preceptor for this patient encounter was physically present during the encounter and was fully available. All aspects of the patient interview, examination, medical decision making process, and medical care plan development were reviewed and approved by the faculty preceptor. The faculty preceptor is aware and concurs with the plan as stated in the body of this note and will attest to such by his/her cosignature. ATTENDING NOTE I personally examined at 920PM and discussed the case with and agree with his plan as documented above. BRENDA MARIE DO Feb 12, 2019 21:25 EDUAR ELIZALDE MD Feb 13, 2019 02:52
[2019-02-12] MEDS ORDERED: ACETAMINOPHEN 325 MG TAB PO PRN (21:45)
[2019-02-12] MEDS ORDERED: MOM 30ML SUSPENSION UDC PO PRN (21:45)
[2019-02-12] MEDS ORDERED: ALBUTEROL 90 MCG/ACT 8GM HFA INHALER INH PRN (21:45)
[2019-02-12] MEDS ORDERED: BISACODYL 10 MG SUPP PR PRN (21:45)
[2019-02-12] MEDS ORDERED: ACETAMINOPHEN TAB 650MG DOSE (2X325MG) PO PRN (22:00)
[2019-02-12] MEDS ORDERED: FLEET ENEMA PR PRN (23:00)
[2019-02-12 23:59] VITALS: BP 140/72
[2019-02-13] VITALS (7 sets, daily range): BP systolic 94–162; BP diastolic 54–82
[2019-02-13] MEDS: POTASSIUM CHLORIDE 10 MEQ SR TABLET PO SCH ×2 (00:39→20:10)
[2019-02-13] MEDS: FAMOTIDINE 20 MG TAB PO SCH ×3 (00:42→20:10)
[2019-02-13] MEDS: MECLIZINE 25 MG TABLET PO SCH ×2 (00:43→10:21)
[2019-02-13] MEDS: MEMANTINE 5MG TABLET (NAMENDA) PO SCH ×2 (01:17→10:21)
[2019-02-13] MEDS: DIVALPROEX 500 MG TAB PO SCH ×2 (01:17→20:11)
[2019-02-13] MEDS ORDERED: NS 500 ML IV SCH (03:00)
[2019-02-13 06:02] LABS: HEMATOCRIT 37.8 % (42.0-52.0); HEMOGLOBIN 12.3 g/dl (13.5-17.5); MEAN CORPUSCULAR HEMOGLOBIN 30.7 pg (27.0-33.0); MEAN CORPUSCULAR HGB CONC 32.5 g/dl (32.0-36.5); MEAN CORPUSCULAR VOLUME 94.3 fl (80.0-96.0); PLATELET COUNT, AUTOMATED 114 10^3/uL (150-450); RED BLOOD COUNT 4.01 10^6/uL (4.30-6.10); WHITE BLOOD COUNT 7.3 10^3/uL (4.0-10.0)
[2019-02-13 06:25] LABS: CALCIUM LEVEL 8.3 MG/DL (8.8-10.2); CREATININE FOR GFR 1.41 MG/DL (0.70-1.30); GLOMERULAR FILTRATION RATE 50.4 (>35); POTASSIUM SERUM 3.8 MEQ/L (3.5-5.1)
[2019-02-13] MEDS: ADVAIR HFA 115/21MCG INHALER INH SCH ×2 (08:34→19:52)
[2019-02-13] MEDS: OXYMETAZOLINE NASAL SPRAY (AFRIN) SCH ×5 (09:00→23:35)
[2019-02-13] MEDS ORDERED: FLUTICASONE PROP 0.05% NASAL SPRAY 16 GM (FLONASE) SCH (09:00)
[2019-02-13] MEDS ORDERED: CLOPIDOGREL 75 MG TAB PO SCH (09:00)
[2019-02-13] MEDS: FINASTERIDE 5 MG TAB PO SCH (10:21)
[2019-02-13] MEDS: SPIRONOLACTONE 12.5MG PER 1/2 TABLET PO SCH (10:21)
[2019-02-13] MEDS: ASPIRIN 81 MG ENTERIC TAB PO SCH (10:21)
[2019-02-13] MEDS: TAMSULOSIN 0.4 MG CAP PO SCH (10:21)
[2019-02-13] MEDS: FUROSEMIDE 40 MG TAB PO SCH ×2 (10:22→17:22)
[2019-02-13] MEDS: AMIODARONE 200 MG TAB (PACERONE) PO SCH (10:22)
--- NOTE | 2019-02-13 12:34 | IPNPDOC ---
Subjective Date Seen The patient was seen on 02/13/19. Subjective Chief Complaint/HPI complains of some pain at the bridge of the nose and blood dripping from the nose all night. No fever ro chills, no chest pain or sob or palpitation. Says he did nto loose consciousness he just lost his balance and fell. Objective Physical Examination General Exam: Positive: Alert, Cooperative, No Acute Distress Eye Exam: Positive: PERRLA, Conjunctiva & lids normal, EOMI; Negative: Sclera icteric ENT Exam: Positive: Nares Patent, Other ENT (epitaxis fromt eh right , htere is swelling of the nasal bridge with some sutures. ) Neck Exam: Positive: Supple; Negative: JVD, thyromegaly Chest Exam: Positive: Normal air movement, Diminished Heart Exam: Positive: Rate Normal, Regular Rhythm, Normal S1, Normal S2, Murmurs (systolic); Negative: Rubs Telemetry: Positive: No significant arrhythmia Abdomen Exam: Positive: Normal bowel sounds, Soft; Negative: Tenderness, Hepatospenomegaly Male Exam: Positive: Normal Genital Exam Extremity Exam: Positive: Normal pulses; Negative: Clubbing, Cyanosis, Edema Skin Exam: Positive: Nl turgor and temperature; Negative: Rash, Breakdown Neuro Exam: Positive: Normal Speech, Normal Tone, Sensation Intact Assessment /Plan Assessment 88-year-old male who presents to the emergency department today from from assisted living at [facility] with a chief complaint of syncope and fall. Patient has an extensive past medical history, most significa nt for hypertension, CVA, Alzheimer's dementia, abdominal and a descending aortic aneurysms, macular degeneration, HFpEF, paroxysmal atrial fibrillation (on anti-coagulation), aortic stenosis, carotid artery stenosis and coronary artery disease requiring a three-vessel bypass. Patient states that he was in the bathroom when he became dizzy and fell to the ground from a standing height, landing on his face. Patient states that he did not lose consciousness and was able to immediately call for help. Patient was noted to have multiple facial lacerations. EMS was contacted and the patient was transported to the emergency department for further evaluation and treatment. In the emergency department, patient's 2 facial lacerations were closed with suture. Minor skin tears on his right forearm recovered and wrapped with gauze. Patient was admitted for fall Fall and trauma to face has ongoing epistaxis consulted Dr Abriss will continue on bed rest, head elevation, afrin nasal drops, ice pack to apply over the nose. Hold plavix Possible syncope patient denies any loss of consciousness says he was standing up after having a bowel movement and trying to pull up his pants then lost his balance and fell forwards on his face. will continue to check for orthostatics, tele monitoring echo and carotid US. Diastolic congestive heart failure compensated continue lasix and spironolactone continue I/O measurement. Fluid restriction to 2 l Chronic respiratory failure with hypoxia due to CHF exacerbation continue diuresis and oxygen supplementation Moderate Aortic stenosis from Echo in 2018 will continue with diuresis will get new echo. Coronary artery disease s/p CABG History of three-vessel coronary artery disease from cardiac catheterization continue statin and betablocker will hold plavix for a few days. Chronic kidney disease, stage III creatinine stable continue to monitor. BPH. Continue with home Flomax and finasteride GERD Continue with home famotidine Depression Continue with home sertraline and trazodone Essential hypertension not on any meds at present. History of TIA/CVA History of significant left internal carotid artery disease Alzheimer's dementia Continue with home memantine and donepezil Abdominal aortic aneurysm and ascending thoracic aortic aneurysm Previous AAA of 3.6 cm s/p bypass grafting. Macular degeneration Cervical spinal stenosis Hyperlipidemia Continue with home atorvastatin Osteoarthritis Paroxysmal atrial fibrillation now in sinus rhythm Continue with amiodarone Reactive airway disease Obesity BMI > 32.1 Patient reports intentional 12 lb weight loss over last 4-6 weeks in an effort to improve balance an coordination Continue to encourage enteral feeding as this may have also contributed to his syncopal episode. Plan/VTE VTE Prophylaxis Ordered?: Yes VS, I&O, 24H, Fishbone Vital Signs/I&O Vital Signs Date Time Temp Pulse Resp B/P (MAP) Pulse Ox O2 Delivery O2 Flow Rate FiO2 02/13/19 08:00 74 107/59 (75) 69 97/55 (69) 68 94/54 (67) 02/13/19 04:00 98.6 16 94 02/12/19 17:56 Room Air I&O- Last 24 Hours up to 6 AM 02/13/19 06:00 Intake Total 110 ml Output Total 300 ml Balance -190 ml Laboratory Data 24H LABS Laboratory Tests 2 02/12/19 18:03: Immature Granulocyte % (Auto) 0.4, White Blood Count 5.2, Red Blood Count 4.38, Hemoglobin 13.8, Hematocrit 41.9L, Mean Corpuscular Volume 95.7, Mean Corpuscular Hemoglobin 31.5, Mean Corpuscular Hemoglobin Concent 32.9, Red Cell Distribution Width 17.7H, Platelet Count 120L, Neutrophils (%) (Auto) 47.3, Lymphocytes (%) (Auto) 14.7L, Monocytes (%) (Auto) 35.5H, Eosinophils (%) (Auto) 1.7, Basophils (%) (Auto) 0.4, Neutrophils # (Auto) 2.4, Lymphocytes # (Auto) 0.8L, Monocytes # (Auto) 1.8H, Eosinophils # (Auto) 0.1, Basophils # (Auto) 0.0, Nucleated Red Blood Cells % (auto) 0.0, Prothrombin Time 15.3H, Prothromb Time International Ratio 1.24, Activated Partial Thromboplast Time 30.9, Anion Gap 9, Glomerular Filtration Rate 38.5, Blood Urea Nitrogen 36H, Creatinine 1.78H, Sodium Level 143, Potassium Level 4.1, Chloride Level 106, Carbon Dioxide Level 28, Calcium Level 8.2L, Total Creatine Kinase 100, Creatine Kinase MB 2.5, Cr eatine Kinase MB Relative Index 2.50, Troponin I < 0.02, Thyroid Stimulating Hormone (TSH) 2.080 02/13/19 05:43: Nucleated Red Blood Cells % (auto) 0.0, Anion Gap 8, Glomerular Filtration Rate 50.4, Blood Urea Nitrogen 37H, Creatinine 1.41H, Sodium Level 143, Potassium Level 3.8, Chloride Level 109H, Carbon Dioxide Level 26, Calcium Level 8.3L CBC/BMP Laboratory Tests 02/12/19 18:03 Red Blood Count 4.38, Mean Corpuscular Volume 95.7, Mean Corpuscular Hemoglobin 31.5, Mean Corpuscular Hemoglobin Concent 32.9, Red Cell Distribution Width 17.7 H, Neutrophils (%) (Auto) 47.3, Lymphocytes (%) (Auto) 14.7 L, Monocytes (%) (Auto) 35.5 H, Eosinophils (%) (Auto) 1.7, Basophils (%) (Auto) 0.4, Neutrophils # (Auto) 2.4, Lymphocytes # (Auto) 0.8 L, Monocytes # (Auto) 1.8 H, Eosinophils # (Auto) 0.1, Basophils # (Auto) 0.0, Calcium Level 8.2 L, Total Creatine Kinase 100 02/13/19 05:43 Red Blood Count 4.01 L, Mean Corpuscular Volume 94.3, Mean Corpuscular Hemoglobin 30.7, Mean Corpuscular Hemoglobin Concent 32.5, Red Cell Distribution Width 17.6 H, Calcium Level 8.3 L BILLY HOFFMAN MD Feb 13, 2019 12:34
--- NOTE | 2019-02-13 13:38 | IPNPDOC ---
Text Note Date of Service The patient was seen on 02/13/19. NOTE ENT 88 yo on Plavix and ASA fell and struck his face Began bleeding from his right nares off and on. Now admitted for work up for syncope Exam very hard of hearing Bilateral periorbital echhymoses. Nasal bones stable. No step off of orbital floor Maxilla is stable and not mobile Zygomas intact Large dry clot in right nares CT reviewed May have anterior wall maxilla on right fractured, non displaced Orbits/Zygoma intact Bilateral nasal bone fracture and possible septal fracture Imp expected bleeding from elderly patient on antiplatelet drugs with nasal trauma Fractuires do not need treatment For epistaxix use of Afrin acutely then Saline to keep nose from drying out. is helpful NO packing is required Head elevation and bedrest helpful too. Thank you Rick RAMON, I+O VSRick, I+O Laboratory Tests 02/12/19 18:03 Red Blood Count 4.38, Mean Corpuscular Volume 95.7, Mean Corpuscular Hemoglobin 31.5, Mean Corpuscular Hemoglobin Concent 32.9, Red Cell Distribution Width 17.7 H, Neutrophils (%) (Auto) 47.3, Lymphocytes (%) (Auto) 14.7 L, Monocytes (%) (Auto) 35.5 H, Eosinophils (%) (Auto) 1.7, Basophils (%) (Auto) 0.4, Neutrophils # (Auto) 2.4, Lymphocytes # (Auto) 0.8 L, Monocytes # (Auto) 1.8 H, Eosinophils # (Auto) 0.1, Basophils # (Auto) 0.0, Calcium Level 8.2 L, Total Creatine Kinase 100 02/13/19 05:43 Red Blood Count 4.01 L, Mean Corpuscular Volume 94.3, Mean Corpuscular Hemoglobin 30.7, Mean Corpuscular Hemoglobin Concent 32.5, Red Cell Distribution Width 17.6 H, Calcium Level 8.3 L Vital Signs Date Time Temp Pulse Resp B/P (MAP) Pulse Ox O2 Delivery O2 Flow Rate FiO2 02/13/19 12:00 98.1 66 17 148/66 (93) 97 02/12/19 17:56 Room Air I&O- Last 24 Hours up to 6 AM 02/13/19 06:00 Intake Total 110 ml Output Total 300 ml Balance -190 ml ABRISS,RIGOBERTO B. MD Feb 13, 2019 13:38
[2019-02-13] MEDS: SODIUM CHLORIDE NASAL 0.65% SPRAY BTL (OCEAN) SCH ×3 (15:42→23:35)
[2019-02-13] MEDS ORDERED: MECLIZINE 25 MG TABLET PO PRN (18:30)
[2019-02-13] MEDS: ATORVASTATIN 20 MG TAB PO SCH (20:10)
[2019-02-14] VITALS (7 sets, daily range): BP systolic 121–148; BP diastolic 57–78
[2019-02-14] MEDS: OXYMETAZOLINE NASAL SPRAY (AFRIN) SCH ×5 (04:13→21:51)
[2019-02-14] MEDS: SODIUM CHLORIDE NASAL 0.65% SPRAY BTL (OCEAN) SCH ×5 (04:13→21:51)
[2019-02-14 06:23] LABS: HEMATOCRIT 36.2 % (42.0-52.0); HEMOGLOBIN 11.9 g/dl (13.5-17.5); MEAN CORPUSCULAR HEMOGLOBIN 30.7 pg (27.0-33.0); MEAN CORPUSCULAR HGB CONC 32.9 g/dl (32.0-36.5); MEAN CORPUSCULAR VOLUME 93.3 fl (80.0-96.0); PLATELET COUNT, AUTOMATED 115 10^3/uL (150-450); RED BLOOD COUNT 3.88 10^6/uL (4.30-6.10); WHITE BLOOD COUNT 5.1 10^3/uL (4.0-10.0)
[2019-02-14 06:39] LABS: CREATININE FOR GFR 1.46 MG/DL (0.70-1.30); GLOMERULAR FILTRATION RATE 48.4 (>35); POTASSIUM SERUM 3.8 MEQ/L (3.5-5.1)
--- NOTE | 2019-02-14 06:44 | ECHO ---
DATE OF STUDY: 02/13/2019 REFERRING PHYSICIAN: Dr. Beatriz Torres INDICATION: Syncope. HEIGHT: 107 cm WEIGHT: 93 kg 2-D MEASUREMENTS: LVOT: 1.91 cm Left atrium: 4.2 cm Aortic root: 3.6 cm Proximal ascending aorta: 3.2 cm Ventricular septum: 1.20 cm Posterior wall: 1.18 cm Left ventricle diastole: 4.7 cm DOPPLER MEASUREMENTS: At least moderate aortic stenosis (possibly severe). Very mild aortic regurgitation. Aortic valve velocity: 314 cm/s Aortic valve VTI: 72.3 cm Peak aortic valve gradient: 39 mmHg Mean aortic valve gradient: 24 mmHg Dimensionless index: 0.22 Aortic valve area (continuity equation, VTI): 0.64 cm2 LVOT velocity: 87.9 cm/s LVOT VTI: 16.2 cm Trace mitral regurgitation. No mitral stenosis. Mitral E velocity: 105 cm/s Mitral A velocity: 147 cm/s Mitral deceleration time: 408 ms Mild tricuspid regurgitation. Estimated right ventricle systolic pressure: 41-46 mmHg Trace pulmonic regurgitation. Pulmonary artery systolic pressure: 52 mmHg DESCRIPTION: Rhythm was sinus. Image quality was fair. No pericardial effusion. This was a 2-D, M-mode, color flow Doppler and pulse waved Doppler examination and included mitral annular tissue Doppler. CONCLUSIONS: 1. Severe focal thickening and focal calcific deposits of a 3-cusp aortic valve. Marked reduction in aortic cusps mobility. At least moderate aortic stenosis. Aortic stenosis judged to be moderate on the basis of peak aortic valve velocity and mean aortic valve gradient. Aortic valve stenosis was determined to be severe on the basis of dimensionless index and aortic valve area calculation. Very mild aortic regurgitation. 2. Normal left ventricle internal dimensions and wall thickness. Normal regional LV wall motion and wall thickening. Normal LV systolic function. Left ventricular ejection fraction (LVEF) 60% by visual estimate. Grade 1 LV diastolic dysfunction (impaired relaxation filling pattern). 3. Moderate mitral annular calcification. Trace mitral regurgitation. 4. Suggestive of moderate elevation of pulmonary artery systolic pressure and estimated right ventricle systolic pressure. 5. No pericardial effusion.
--- NOTE | 2019-02-14 06:52 | REP ---
CAROTID DUPLEX ULTRASOUND: 02/13/2019. Comparison: 07/14/2017. Clinical history: Syncope. Known carotid disease. Findings: Standard duplex techniques used bilaterally. The right common carotid shows intimal thickening and both soft and hard plaque. One linear projection plaque in the mid strain of the carotid is seen. It has calcifications. There is circumferential mixed plaque at the bulb and there is complete occlusion now visible at the right proximal ICA from extensive calcific and mixed plaque. This is a change from last year. The left common carotid also shows scattered soft and mixed plaque throughout. Some tortuosity is noted near the bulb. There is circumferential mixed plaque at the bulb and posterior plaque at the origin of the ICA and ECA. Peak velocities: Right Left CCA systolic: 0.81 M/S 1.74 M/S ICA systolic: 0 1.08 M/S ICA diastolic: 0 0.20 M/S ECA systolic: 1.15 M/S 0.82 M/S IC/CC ratio: 0 1.57 Extensive hard plaque and mixed plaque throughout both common carotids and proximal left ICA and ECA. Occlusion now noted in the right internal carotid just past the bulb. This is a new finding since 07/06. Doppler waveform analysis shows no color flow or Doppler in the right ICA and some mild spectral broadening or filling in of the systolic window on the left moderate stenosis of the left internal carotid 50-70%. Cranial direction of for in the left vertebral artery. The right vertebral flow is not seen. Impression: 1. Complete occlusion of the right ICA, new since the 07/06 prior carotid ultrasound. Extensive calcific plaque throughout the common carotid and bulb. The right vertebral artery is also not visualized. Mixed plaque in the right proximal ECA as well. 2. The left internal carotid has less than 50% stenosis by velocity criteria but at least 50% by visual criteria. Extensive mixed plaque at the proximal left ICA. 3. Antegrade flow noted in the left vertebral artery. Electronically Signed by Kali Syed MD 02/14/2019 09:14 A
[2019-02-14] MEDS: ADVAIR HFA 115/21MCG INHALER INH SCH ×2 (07:29→20:24)
[2019-02-14] MEDS: SPIRONOLACTONE 12.5MG PER 1/2 TABLET PO SCH (08:21)
[2019-02-14] MEDS: ASPIRIN 81 MG ENTERIC TAB PO SCH (08:21)
[2019-02-14] MEDS: FINASTERIDE 5 MG TAB PO SCH (08:21)
[2019-02-14] MEDS: FAMOTIDINE 20 MG TAB PO SCH ×2 (08:21→21:51)
[2019-02-14] MEDS: TAMSULOSIN 0.4 MG CAP PO SCH (08:22)
[2019-02-14] MEDS: AMIODARONE 200 MG TAB (PACERONE) PO SCH (08:22)
[2019-02-14] MEDS: FUROSEMIDE 40 MG TAB PO SCH ×2 (08:22→16:22)
--- NOTE | 2019-02-14 11:54 | IPNPDOC ---
Subjective Date Seen The patient was seen on 02/14/19. Subjective Chief Complaint/HPI Awake and alert this morning, having breakfast by himself. yesterday whole day he was very somnolent though easily arousable, this am the laceration on his nose was leaking blood which has been cleaned and dressed. steristrips were not removed. He denies any pain on his nose. He is from [facility]. ECHO: Showed Severe focal thickening and focal calcific deposits of a 3-cusp aortic valve. Marked reduction in aortic cusps mobility. At least moderate aortic stenosis. Aortic stenosis judged to be moderate on the basis of peak aortic valve velocity and mean aortic valve gradient. Aortic valve stenosis was determined to be severe on the basis of dimensionless index and aortic valve area calculation. Very mild aortic regurgitation. Normal left ventricle internal dimensions and wall thickness. Normal regional LV wall motion and wall thickening. Normal LV systolic function. Left ventricular ejection fraction (LVEF) 60% by visual estimate. Grade 1 LV diastolic dysfunction (impaired relaxation filling pattern). Moderate mitral annular calcification. Trace mitral regurgitation. Suggestive of moderate elevation of pulmonary artery systolic pressure and estimated right ventricle systolic pressure. Objective Physical Examination General Exam: Positive: Alert, Cooperative, No Acute Distress Eye Exam: Positive: PERRLA, Conjunctiva & lids normal, EOMI; Negative: Sclera icteric ENT Exam: Positive: Nares Patent, Other ENT (epitaxis fromt eh right , htere is swelling of the nasal bridge with some sutures. ) Neck Exam: Positive: Supple; Negative: JVD, thyromegaly Chest Exam: Positive: Normal air movement, Diminished Heart Exam: Positive: Rate Normal, Regular Rhythm, Normal S1, Normal S2, Murmurs (systolic); Negative: Rubs Telemetry: Positive: No significant arrhythmia Abdomen Exam: Positive: Normal bowel sounds, Soft; Negative: Tenderness, Hepatospenomegaly Male Exam: Positive: Normal Genital Exam Extremity Exam: Positive: Normal pulses; Negative: Clubbing, Cyanosis, Edema Skin Exam: Positive: Nl turgor and temperature; Negative: Rash, Breakdown Neuro Exam: Positive: Normal Speech, Normal Tone, Sensation Intact Assessment /Plan Assessment 88-year-old male who presents to the emergency department today from from [facility] with a chief complaint of syncope and fall. Patient has an extensive past medical history, most significant for hypertension, CVA, Alzheimer's dementia, abdominal and a descending aortic aneurysms, macular degeneration, HFpEF, paroxysmal atrial fibrillation (Not on anti-coagulation), aortic stenosis, carotid artery stenosis and coronary artery disease requiring a three-vessel bypass. Patient states that he was in the bathroom when he became dizzy and fell to the ground from a standing height, landing on his face. Patient states that he did not lose consciousness and was able to immediately call for help. Patient was noted to have multiple facial lacerations. EMS was contacted and the patient was transported to the emergency department for further evaluation and treatment. In the emergency department, patient's 2 facial lacerations were closed with suture. Minor skin tears on his right forearm recovered and wrapped with gauze. Patient was admitted for fall Fall and trauma to face has ongoing epistaxis consulted Dr Pimentel will continue on bed rest, head elevation, afrin nasal drops, ice pack to apply over the nose. Hold plavix Possible syncope probably due to severe aortic stenosis and also carotid occlusion. patient denies any loss of consciousness says he was standing up after having a bowel movement and trying to pull up his pants then lost his balance and fell forwards on his face. will continue to check for orthostatics which have been negative. tele no arrhythmias Carotid US complete occlusion of right ICA right vertrebral artery could not be visualized. will consult vascular Echo Severe aortic stenosis by dimensions and moderate by peak velocity and mean gradient. Diastolic congestive heart failure New echo shows grade 1 diastolic dysfunction. compensated continue lasix and spironolactone continue I/O measurement. Fluid restriction to 2 l Chronic respiratory failure with hypoxia due to CHF exacerbation continue diuresis and oxygen supplementation Moderate Aortic stenosis from Echo in 2018 will continue with diuresis will get new echo. Coronary artery disease s/p CABG History of three-vessel coronary artery disease from cardiac catheterization continue statin and betablocker will hold plavix for a few days. Chronic kidney disease, stage III creatinine stable continue to monitor. BPH. Continue with home Flomax and finasteride GERD Continue with home famotidine Depression Continue with home sertraline and trazodone Essential hypertension not on any meds at present. History of TIA/CVA History of significant left internal carotid artery disease Alzheimer's dementia Continue with home memantine and donepezil Abdominal aortic aneurysm and ascending thoracic aortic aneurysm Previous AAA of 3.6 cm s/p bypass grafting. Macular degeneration Cervical spinal stenosis Hyperlipidemia Continue with home atorvastatin Osteoarthritis Paroxysmal atrial fibrillation now in sinus rhythm Continue with amiodarone Reactive airway disease Obesity BMI > 32.1 Patient reports intentional 12 lb weight loss over last 4-6 weeks in an effort to improve balance an coordination Continue to encourage enteral feeding as this may have also contributed to his syncopal episode. Plan/VTE VTE Prophylaxis Ordered?: Yes VS, I&O, 24H, Fishbone Vital Signs/I&O Vital Signs Date Time Temp Pulse Resp B/P (MAP) Pulse Ox O2 Delivery O2 Flow Rate FiO2 02/14/19 08:00 97.3 62 18 124/68 (86) 95 02/12/19 17:56 Room Air I&O- Last 24 Hours up to 6 AM 02/14/19 05:59 Intake Total 1250 ml Output Total 1600 ml Balance -350 ml Laboratory Data 24H LABS Laboratory Tests 2 02/14/19 05:32: Nucleated Red Blood Cells % (auto) 0.0, Anion Gap 8, Glomerular Filtration Rate 48.4, Blood Urea Nitrogen 30H, Creatinine 1.46H, Sodium Level 144, Potassium Level 3.8, Chloride Level 109H, Carbon Dioxide Level 27, Calcium Level 8.0L CBC/BMP Laboratory Tests 02/14/19 05:32 Red Blood Count 3.88 L, Mean Corpuscular Volume 93.3, Mean Corpuscular Hemo globin 30.7, Mean Corpuscular Hemoglobin Concent 32.9, Red Cell Distribution Width 18.0 H, Calcium Level 8.0 L BILLY HOFFMAN MD Feb 14, 2019 11:54
[2019-02-14] MEDS: ATORVASTATIN 20 MG TAB PO SCH (21:51)
[2019-02-14] MEDS: POTASSIUM CHLORIDE 10 MEQ SR TABLET PO SCH (21:52)
[2019-02-14] MEDS: DIVALPROEX 500 MG TAB PO SCH (22:12)
--- NOTE | 2019-02-14 22:19 | CR.PDOC ---
General Date of Consultation: Feb 14, 2019 Consultation REASON FOR CONSULTATION/CHIEF COMPLAINT: Carotid Occlusion HISTORY OF PRESENT ILLNESS: Mr Goldman is a pleasant 88yo gentleman with h/o aortic stenosis, heart disease and dementia who had a syncopal episode at his assisted living and fell with injury to his face. He has had increasing BLE weakness, and denies any unilateral weakness. He denies LOC. He was admitted for evaluation of syncope. I discussed the findings of his carotid duplex. He has a R ICA occlusion, not present on previous imaging, and the right vertebral was not visualized. No intervention needed for either finding. L ICA is <50% stenotic. L vertebral antegrade. Although it is unclear how recently his carotid occlusion occurred, it may be unrelated to recent syncopal episode. Patient is on appropriate best medical management with asa, plavix, and statin. ALLERGIES: Please see below. HOME MEDICATIONS: Please see below. PAST MEDICAL HISTORY: 1. HTN 2. TAA/AAA 3. Depression 4. TAA/AAA 5. CHF 6. HLD 7. afib 8. CAD 9. spinal stenosis 10. Arthritis 11. BPH 12. CRI 13. Aortic stenosis- moderate 14. GERD 15. Carotid stenosis 16. Dementia PAST SURGICAL HISTORY: 1. CABG 2. TKR 3. HErnia repair 4. AAA 5. Carpal tunnel repair 6. Cataract surgery FAMILY HISTORY: CAD, HTN, Kidney disease SOCIAL HISTORY: , lives assisted living Denies tobacco, ETOH, illicit drug use REVIEW OF SYSTEMS: CONSTITUTIONAL: +fatigue +loss of appetite HEENT: +Pain nose and face. Denies amaurosis. CARDIOVASCULAR: Denies CP RESPIRATORY: Denies SOB GENITOURINARY: Denies dysuria MUSCULOSKELETAL: Denies claudication GASTROINTESTINAL: Denies n/v/d/c SKIN: Denies rashes NEUROLOGICAL: Denies Sz, +ADAMS, denies focal deficits PSYCHIATRIC: +Depression ENDOCRINE: Denies DM or thyroid disease HEMATOLOGIC/LYMPHATIC: Denies bleeding disorder/clotting order ALLERGIC/IMMUNOLOGIC: Denies. PHYSICAL EXAMINATION: VITAL SIGNS: Please see below. GENERAL APPEARANCE: Medically stable HEENT: Bruising nose and eyes RESPIRATORY: CTA CARDIOVASCULAR: RRR ABDOMEN: soft NT EXTREMITIES: +distal pulses NEUROLOGICAL: Alert, answers questions appropriately, MAEE, speech clear PSYCHIATRIC: Pleasant and cooperative LABORATORY DATA: Please see below. ASSESSMENT/PLAN: Very pleasant 88yo gentleman with recent syncopal episode resulting in a fall in the bathroom, and US reveals R ICA occlusion, and vertebral not visualized. 1. No intervention needed for total occlusion MADDY. 2. Continue best medical management with asa plavix and statin daily. Vital Signs/I&O Vital Signs Date Time Temp Pulse Resp B/P (MAP) Pulse Ox O2 Delivery O2 Flow Rate FiO2 02/14/19 20:00 97.8 64 20 121/58 (79) 96 02/12/19 17:56 Room Air I&O- Last 24 Hours up to 6 AM 02/14/19 09:00 Intake Total 1440 ml Output Total 1600 ml Balance -160 ml Laboratory Data Labs 24H Laboratory Tests 2 02/14/19 05:32: Nucleated Red Blood Cells % (auto) 0.0, Anion Gap 8, Glomerular Filtration Rate 48.4, Blood Urea Nitrogen 30H, Creatinine 1.46H, Sodium Level 144, Potassium Level 3.8, Chloride Level 109H, Carbon Dioxide Level 27, Calcium Level 8.0L CBC/BMP Laboratory Tests 02/14/19 05:32 Red Blood Count 3.88 L, Mean Corpuscular Volume 93.3, Mean Corpuscular Hemoglobin 30.7, Mean Corpuscular Hemoglobin Concent 32.9, Red Cell Distribution Width 18.0 H, Calcium Level 8.0 L Allergies Coded Allergies: No Known Allergies (Unverified , 04/03/18) Home Medications Scheduled Amiodarone HCl (Amiodarone HCl) 200 Mg Tab, 200 MG PO DAILY, (Reported) Aspirin (Aspirin EC) 81 Mg Tabec, 81 MG PO DAILY, (Reported) Atorvastatin Calcium (Lipitor) 80 Mg Tab, 80 MG PO QHS, (Reported) Cetirizine HCl (Cetirizine HCl) 10 Mg Tablet, 10 MG PO QHS, (Reported) Clopidogrel Bisulfate (Plavix) 75 Mg Tab, 75 MG PO DAILY, (Reported) Divalproex Sodium (Depakote) 500 Mg Tablet.dr, 500 MG PO QHS, (Reported) Donepezil Hcl (Donepezil HCl Odt) 10 Mg Tab, 10 MG PO QHS, (Reported) Finasteride (Finasteride) 5 Mg Tab, 5 MG PO DAILY, (Reported) Fluticasone Propionate (Flonase Allergy Relief) 9.9 Ml [place].susp, 2 SPRAY NA DAILY, (Reported) Fluticasone/Vilanterol (Breo Ellipta 100-25 Mcg INH) 1 Each Blst.w.dev, 1 PUFF INH DAILY, (Reported) Furosemide (Furosemide) 40 Mg Tab, 40 MG PO BID, (Reported) Meclizine HCl (Meclizine HCl) 25 Mg Tablet, 25 MG PO BID, (Reported) Memantine HCl (Namenda) 10 Mg Tab, 10 MG PO BID, (Reported) Potassium Chloride (Potassium Chloride) 10 Meq Tab, 10 MEQ PO QHS, (Reported) Ranitidine HCl (Ranitidine HCl) 300 Mg Tab, 1 TAB PO DAILY, (Reported) Sertraline Hcl (Sertraline HCl) 25 Mg Tablet, 25 MG PO QHS, (Reported) Spironolactone (Spironolactone) 25 Mg Tablet, 12.5 MG PO DAILY, (Reported) Tamsulosin HCl (Flomax) 0.4 Mg Cap, 0.4 MG PO DAILY, (Reported) Vit C/E/Zn/Coppr/Lutein/Zeaxan (Preservision Areds 2 Softgel) 1 Each Capsule, 1 EACH PO QHS, (Reported) Scheduled PRN Acetaminophen (Acetaminophen) 325 Mg Tab, 650 MG PO Q8H PRN for PAIN, (Reported) Albuterol Sulfate (Proair Hfa) 108 Mcg/Act Aer, 2 PUFF INH Q4H PRN for SHORTNESS OF BREATH, (Reported) Bisacodyl (Bisacodyl) 10 Mg Supp.rect, 10 MG MA DAILY PRN for CONSTIPATION, (Reported) Carboxymethylcellulos/Glycerin (Refresh Optive Eye Drops) 1 Russell Russell, 1 DROP OU TID PRN for DRY EYES, (Reported) Magnesium Hydroxide (Milk of Magnesia) 400 Mg/5 Ml Oral.susp, 30 ML PO DAILY PRN for CONSTIPATION, (Reported) Melatonin (Melatonin) 5 Mg Tab, 5 MG PO QHS PRN for INSOMNIA, (Reported) TAKE WITH FOOD Psyllium Husk (Psyllium Husk) 1 Pow Pow, 1 TBS PO DAILY PRN for CONSTIPATION, (Reported) WITH A MEAL Sodium Phosphate,Morrill-Dibasic (Enema) 133 Ml Enema, 1 KIRK MA DAILY PRN for CONSTIPATION, (Reported) PRADEEP WICK MD Feb 14, 2019 21:44
[2019-02-15] MEDS: OXYMETAZOLINE NASAL SPRAY (AFRIN) SCH ×2 (01:05→05:00)
[2019-02-15 03:59] VITALS: BP 107/53
[2019-02-15] MEDS: SODIUM CHLORIDE NASAL 0.65% SPRAY BTL (OCEAN) SCH ×4 (04:03→12:06)
[2019-02-15] MEDS: ADVAIR HFA 115/21MCG INHALER INH SCH (07:12)
[2019-02-15 08:00] VITALS: BP 127/60
[2019-02-15] MEDS: SPIRONOLACTONE 12.5MG PER 1/2 TABLET PO SCH (09:11)
[2019-02-15] MEDS: FUROSEMIDE 40 MG TAB PO SCH (09:11)
[2019-02-15] MEDS: FAMOTIDINE 20 MG TAB PO SCH (09:11)
[2019-02-15] MEDS: FINASTERIDE 5 MG TAB PO SCH (09:11)
[2019-02-15] MEDS: ASPIRIN 81 MG ENTERIC TAB PO SCH (09:11)
[2019-02-15] MEDS: AMIODARONE 200 MG TAB (PACERONE) PO SCH (09:11)
[2019-02-15] MEDS: TAMSULOSIN 0.4 MG CAP PO SCH (09:11)
[2019-02-15] MEDS ORDERED: FLON1SPR (11:23)
[2019-02-15] MEDS ORDERED: LIPI80TA PO (11:23)
[2019-02-15] MEDS ORDERED: MECL-86 PO (11:23)
[2019-02-15] MEDS ORDERED: Sodium Chloride Nasal Spray (11:23)
--- NOTE | 2019-02-15 21:48 | DS.PDOC ---
Discharge Summary General Date of Admission Feb 12, 2019 at 20:06 Date of Discharge 02/15/19 Discharge Summary PROCEDURES PERFORMED DURING STAY: stitches on the nasal bridge laceration ECHO: Showed Severe focal thickening and focal calcific deposits of a 3-cusp aortic valve. Marked reduction in aortic cusps mobility. At least moderate aortic stenosis. Aortic stenosis judged to be moderate on the basis of peak aortic valve velocity and mean aortic valve gradient. Aortic valve stenosis was determined to be severe on the basis of dimensionless index and aortic valve area calculation. Very mild aortic regurgitation. Normal left ventricle internal dimensions and wall thickness. Normal regional LV wall motion and wall thickening. Normal LV systolic function. Left ventricular ejection fraction (LVEF) 60% by visual estimate. Grade 1 LV diastolic dysfunction (impaired relaxation filling pattern). Moderate mitral annular calcification. Trace mitral regurgitation. Suggestive of moderate elevation of pulmonary artery systolic pressure and estimated right ventricle systolic pressure. DISCHARGE DIAGNOSES: Syncope and collapse may be due to severe Aortic stenosis, Right ICA occlusion Epistaxis and nasal bone fracture after fall SECONDARY DIAGNOSIS: Hypertension, CVA, Alzheimer's dementia, Abdominal and a descending aortic aneurysms, Macular degeneration, HFpEF, Paroxysmal atrial fibrillation (Not on anti-coagulation), Aortic stenosis, carotid artery stenosis and coronary artery disease requiring a three-vessel bypass, chronic respiratory failure with hypoxia, cervical stenosis, BPH, GERD, Obesity, depression, Obesity COMPLICATIONS/CHIEF COMPLAINT: Syncope. HISTORY OF PRESENT ILLNESS: see history and physical HOSPITAL COURSE: 88-year-old male who presents to the emergency department today from from [facility] with a chief complaint of syncope and fall. Patient has an extensive past medical history, most significant for hypertension, CVA, Alzheimer's dementia, abdominal and a descending aortic aneurysms, macular degeneration, HFpEF, paroxysmal atrial fibrillation (Not on anti-coagulation), aortic stenosis, carotid artery stenosis and coronary artery disease requiring a three-vessel bypass. Patient states that he was in the bathroom when he became dizzy and fell to the ground from a standing height, landing on his face. Patient states that he did not lose consciousness and was able to immediately call for help. Patient was noted to have multiple facial lacerations. EMS was contacted and the patient was transported to the emergency department for further evaluation and treatment. In the emergency department, patient's 2 facial lacerations were closed with suture. Minor skin tears on his right forearm recovered and wrapped with gauze. Patient was admitted for fall Fall and trauma to face with epistaxis. epistaxis has resolved consulted Dr Pimentel if recurrence of epistaxis then resume bed rest, head elevation, afrin nasal drops, ice pack to apply over the nose. Hold plavix Now as epistaxis has stopped can resume plavix after 1 more day of holding it. and can stop the Q4 hours afrin nasal drops in 2 days. has stitches and steristrips on the nasal bridge. Possible syncope probably due to severe aortic stenosis and also carotid occlusion. patient denies any loss of consciousness says he was standing up after having a bowel movement and trying to pull up his pants then lost his balance and fell forwards on his face. orthostatics have been negative. tele no arrhythmias Carotid US complete occlusion of right ICA right vertrebral artery could not be visualized. Consulted with vascular no surgical intervention continue medical management with ASA, Plavix and statin. Echo Severe aortic stenosis by dimensions and moderate by peak velocity and mean gradient. consider follow up with Cardiology as outpatient regarding whether he is a candidate for TAVR or not. Diastolic congestive heart failure New echo shows grade 1 diastolic dysfunction. compensated continue lasix and spironolactone continue I/O measurement. Fluid restriction to 2 l Chronic respiratory failure with hypoxia due to CHF exacerbation continue diuresis and oxygen supplementation SEVERE Aortic stenosis from Echo now will continue with diuresis follow up with cardiology as outpatient to evaluate if he is a candidate for TAVR or not. Coronary artery disease s/p CABG History of three-vessel coronary artery disease from cardiac catheterization continue statin and betablocker, ASA and plavix Chronic kidney disease, stage III creatinine stable continue to monitor. BPH. Continue with home Flomax and finasteride GERD Continue with home famotidine Depression Continue with home sertraline and trazodone Essential hypertension not on any meds at present. 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 Alzheimer's dementia Continue with home memantine and donepezil Abdominal aortic aneurysm and ascending thoracic aortic aneurysm Previous AAA of 3.6 cm s/p bypass grafting. Macular degeneration Cervical spinal stenosis Hyperlipidemia Continue with home atorvastatin Osteoarthritis Paroxysmal atrial fibrillation now in sinus rhythm Continue with amiodarone Continue ASA and Plavix, not on anticoagulation as rerccurent falls with massive bleedings. Reactive airway disease Obesity BMI > 32.1 Patient reports intentional 12 lb weight loss over last 4-6 weeks in an effort to improve balance an coordination Continue to encourage enteral feeding as this may have also contributed to his syncopal episode. DISCHARGE MEDICATIONS: Please see below. ALLERGIES: Please see below. PHYSICAL EXAMINATION ON DISCHARGE: VITAL SIGNS: Please see below. General Exam: Positive: Alert, Cooperative, No Acute Distress Eye Exam: Positive: PERRLA, Conjunctiva & lids normal, EOMI; Negative: Sclera icteric ENT Exam: Positive: Nares Patent, Other ENT swelling on Neck Exam: Positive: Supple; Negative: JVD, thyromegaly Chest Exam: Positive: Normal air movement, Diminished Heart Exam: Positive: Rate Normal, Regular Rhythm, Normal S1, Normal S2, Murmurs (systolic); Negative: Rubs Telemetry: Positive: No significant arrhythmia Abdomen Exam: Positive: Normal bowel sounds, Soft; Negative: Tenderness, Hepatospenomegaly Male Exam: Positive: Normal Genital Exam Extremity Exam: Positive: Normal pulses; Negative: Clubbing, Cyanosis, Edema Skin Exam: Positive: Nl turgor and temperature; Negative: Rash, Breakdown Neuro Exam: Positive: Normal Speech, Normal Tone, Sensation Intact LABORATORY DATA: Please see below. ACTIVITY: [As tolerated]. DIET: Mechanical soft DISCHARGE PLAN: SSV DISPOSITION: . DISCHARGE INSTRUCTIONS: Follow up with Dr Margarito guzman Follow up with cardiology for severe . DISCHARGE CONDITION: [Stable]. TIME SPENT ON DISCHARGE: 35 minutes. Vital Signs/I&Os Vital Signs Date Time Temp Pulse Resp B/P (MAP) Pulse Ox O2 Delivery O2 Flow Rate FiO2 02/15/19 08:00 97.0 66 18 127/60 (82) 95 02/12/19 17:56 Room Air I&O- Last 24 Hours up to 6 AM 02/15/19 06:00 Intake Total 1060 ml Output Total 1150 ml Balance -90 ml Discharge Medications Scheduled Amiodarone HCl (Amiodarone HCl) 200 Mg Tab, 200 MG PO DAILY, (Reported) Aspirin (Aspirin EC) 81 Mg Tabec, 81 MG PO DAILY, (Reported) Atorvastatin Calcium (Lipitor) 80 Mg Tab, 40 MG PO QHS Clopidogrel Bisulfate (Plavix) 75 Mg Tab, 75 MG PO DAILY, (Reported) Divalproex Sodium (Depakote) 500 Mg Tablet.dr, 500 MG PO QHS, (Reported) Donepezil Hcl (Donepezil HCl Odt) 10 Mg Tab, 10 MG PO QHS, (Reported) Finasteride (Finasteride) 5 Mg Tab, 5 MG PO DAILY, (Reported) Fluticasone Propionate (Flonase Allergy Relief) 9.9 Ml [place].susp, 1 SPRAY NA Q4H Fluticasone/Vilanterol (Breo Ellipta 100-25 Mcg INH) 1 Each Blst.w.dev, 1 PUFF INH DAILY, (Reported) Furosemide (Furosemide) 40 Mg Tab, 40 MG PO BID, (Reported) Memantine HCl (Namenda) 10 Mg Tab, 10 MG PO BID, (Reported) Potassium Chloride (Potassium Chloride) 10 Meq Tab, 10 MEQ PO QHS, (Reported) Ranitidine HCl (Ranitidine HCl) 300 Mg Tab, 1 TAB PO DAILY, (Reported) Spironolactone (Spironolactone) 25 Mg Tablet, 12.5 MG PO DAILY, (Reported) Tamsulosin HCl (Flomax) 0.4 Mg Cap, 0.4 MG PO DAILY, (Reported) Vit C/E/Zn/Coppr/Lutein/Zeaxan (Preservision Areds 2 Softgel) 1 Each Capsule, 1 EACH PO QHS, (Reported) [Sodium Chloride Nasal [place]] 45 SPRAY/45 ML NASPR, 2 SPRAY NA Q4H Scheduled PRN Acetaminophen (Acetaminophen) 325 Mg Tab, 650 MG PO Q8H PRN for PAIN, (Reported) Albuterol Sulfate (Proair Hfa) 108 Mcg/Act Aer, 2 PUFF INH Q4H PRN for SHORTNESS OF BREATH, (Reported) Bisacodyl (Bisacodyl) 10 Mg Supp.rect, 10 MG HI DAILY PRN for CONSTIPATION, (Reported) Carboxymethylcellulos/Glycerin (Refresh Optive Eye Drops) 1 [place] Russell, 1 DROP OU TID PRN for DRY EYES, (Reported) Magnesium Hydroxide (Milk of Magnesia) 400 Mg/5 Ml Oral.susp, 30 ML PO DAILY PRN for CONSTIPATION, (Reported) Meclizine HCl (Meclizine HCl) 25 Mg Tablet, 25 MG PO BIDP PRN for DIZZINESS Melatonin (Melatonin) 5 Mg Tab, 5 MG PO QHS PRN for INSOMNIA, (Reported) TAKE WITH FOOD Psyllium Husk (Psyllium Husk) 1 Pow Pow, 1 TBS PO DAILY PRN for CONSTIPATION, ( Reported) WITH A MEAL Sodium Phosphate,[place]-Dibasic (Enema) 133 Ml Enema, 1 KIRK HI DAILY PRN for CONSTIPATION, (Reported) Allergies Coded Allergies: No Known Allergies (Unverified , 04/03/18) BILLY HOFFMAN MD Feb 15, 2019 12:30
== END 2019-02-15 12:37 | DRG 68 ==
LOC: EDBD 17:41 → M ED 17:41 → M ED INP 20:06 → M PCU 02-13
PROVIDERS: ADMIT Internal Medicine; ATTEND Internal Medicine Nephrology
DX: I65.21 Occlusion and stenosis of right carotid artery (principal); I13.0 Hypertensive heart and chronic kidney disease with heart failure and stage 1 through stage 4 chronic kidney disease, or unspecified chronic kidney disease; J96.11 Chronic respiratory failure with hypoxia; S02.40CA Maxillary fracture, right side, initial encounter for closed fracture; I50.32 Chronic diastolic (congestive) heart failure; N18.3 Chronic kidney disease, stage 3 (moderate); R55 Syncope and collapse; G30.9 Alzheimer's disease, unspecified; S02.2XXA Fracture of nasal bones, initial encounter for closed fracture; I35.0 Nonrheumatic aortic (valve) stenosis; F02.80 Dementia in other diseases classified elsewhere, unspecified severity, without behavioral disturbance, psychotic disturbance, mood disturbance, and anxiety; I48.0 Paroxysmal atrial fibrillation; H35.30 Unspecified macular degeneration; R04.0 Epistaxis; I71.4 Abdominal aortic aneurysm, without rupture; I25.10 Atherosclerotic heart disease of native coronary artery without angina pectoris; Z95.1 Presence of aortocoronary bypass graft; K21.9 Gastro-esophageal reflux disease without esophagitis; N40.0 Benign prostatic hyperplasia without lower urinary tract symptoms; E66.9 Obesity, unspecified; F32.9 Major depressive disorder, single episode, unspecified; I71.2 Thoracic aortic aneurysm, without rupture; E78.5 Hyperlipidemia, unspecified; W18.30XA Fall on same level, unspecified, initial encounter; Y92.129 Unspecified place in nursing home as the place of occurrence of the external cause; Z79.82 Long term (current) use of aspirin; Z79.899 Other long term (current) drug therapy; M19.90 Unspecified osteoarthritis, unspecified site; J45.909 Unspecified asthma, uncomplicated; Z95.2 Presence of prosthetic heart valve; Z96.651 Presence of right artificial knee joint; Z68.32 Body mass index [BMI] 32.0-32.9, adult; Z86.73 Personal history of transient ischemic attack (TIA), and cerebral infarction without residual deficits

== ENCOUNTER → 2019-02-12 | Outpatient (REF) | payer MEDICARE ==
[~2019-02-12] MED LIST changes: +Sodium Chloride Nasal Spray
== END ==
LOC: M SFHCPLAZ 17:01
PROVIDERS: ATTEND Dermatology
DX: C44.222 Squamous cell carcinoma of skin of right ear and external auricular canal (principal); L57.0 Actinic keratosis

== ENCOUNTER → 2019-02-23 | Outpatient (REF) ==
[~2019-02-23] MED LIST changes: +BISA10SU20 PR; +DEPA1TAB3 PO; +ENEMENE PR; +MECL-86 PO; -MECLIZINE 25 MG TABLET PO SCH; +MILKSUS3 PO; +PHARMACY COMMENT; +SERT25TA85 PO; +SPIR-10 PO; +Sodium Chloride Nasal Spray
[2019-02-23 09:14] LABS: HEMATOCRIT 41.4 % (42.0-52.0); HEMOGLOBIN 13.3 g/dl (13.5-17.5); MEAN CORPUSCULAR HEMOGLOBIN 31.1 pg (27.0-33.0); MEAN CORPUSCULAR HGB CONC 32.1 g/dl (32.0-36.5); PLATELET COUNT, AUTOMATED 191 10^3/uL (150-450); RED BLOOD COUNT 4.27 10^6/uL (4.30-6.10); WHITE BLOOD COUNT 4.1 10^3/uL (4.0-10.0)
[2019-02-23 09:40] LABS: CALCIUM LEVEL 8.7 MG/DL (8.8-10.2); CREATININE FOR GFR 1.34 MG/DL (0.70-1.30); GLOMERULAR FILTRATION RATE 53.4 (>35); POTASSIUM SERUM 4.1 MEQ/L (3.5-5.1)
== END ==
PROVIDERS: ATTEND Family Medicine
DX: E03.9 Hypothyroidism, unspecified (principal)

== ENCOUNTER → 2019-03-02 | Outpatient (REF) ==
[2019-03-02 08:57] LABS: HEMATOCRIT 39.3 % (42.0-52.0); HEMOGLOBIN 12.6 g/dl (13.5-17.5); MEAN CORPUSCULAR HEMOGLOBIN 30.7 pg (27.0-33.0); MEAN CORPUSCULAR HGB CONC 32.1 g/dl (32.0-36.5); MEAN CORPUSCULAR VOLUME 95.6 fl (80.0-96.0); PLATELET COUNT, AUTOMATED 170 10^3/uL (150-450); RED BLOOD COUNT 4.11 10^6/uL (4.30-6.10); WHITE BLOOD COUNT 3.9 10^3/uL (4.0-10.0)
[2019-03-02 09:28] LABS: CALCIUM LEVEL 8.7 MG/DL (8.8-10.2); CREATININE FOR GFR 1.58 MG/DL (0.70-1.30); GLOMERULAR FILTRATION RATE 44.2 (>35); POTASSIUM SERUM 4.3 MEQ/L (3.5-5.1)
== END ==
PROVIDERS: ATTEND Physician Assistant
DX: E03.9 Hypothyroidism, unspecified (principal)

== ENCOUNTER 2019-04-12 10:58 | Day surgery (SDC) | payer MEDICARE ==
[~2019-04-12] VITALS: Ht 170.2 cm; Wt 94.3 kg
[~2019-04-12 10:58] MED LIST changes: +ARIC1TAB2 PO; +LIDOCAINE 1% MDV 20ML VIAL SQ PRN; +LR 1,000 ML IV ONE; +OMEP-172; -OMEP20CA4; +SERT25TA21 PO; -SERT25TA88 PO
[2019-04-12] MEDS ORDERED: LIDOCAINE 2% INJ 100 MG/5 ML SDV (FOR ANES.) As Ordered ONE ×2 (11:52→11:56)
[2019-04-12] MEDS ORDERED: ONDANSETRON 4MG/2ML VIAL (J2405) As Ordered ONE (11:53)
[2019-04-12] MEDS ORDERED: dexameTHASONE 4 MG/ML 1ML VIAL (J1100) As Ordered ONE (11:53)
[2019-04-12] MEDS ORDERED: fentaNYL 100 MCG/2 ML INJECTION (J3010) As Ordered ONE (11:56)
[2019-04-12] MEDS ORDERED: PROPOFOL 200 MG/20 ML VIAL As Ordered ONE (11:57)
[2019-04-12] MEDS ORDERED: BACITRACIN OINT 30GM As Ordered ONE (13:02)
[2019-04-12] MEDS ORDERED: LIDOCAINE W/EPINEPHRINE 1% 20ML VIAL As Ordered ONE (13:03)
[2019-04-12 16:00] VITALS: BP 133/71
--- NOTE | 2019-05-06 14:23 | RO ---
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 SURGEON: Dr. Bhargav Pimentel [employer] SUPERVISOR: ANESTHESIA: INDICATIONS: 88-year-old patient with a exophytic lesion of the skin of the right ear appeared to be deeply ulcerative. It is approximately 2 cm in length. DESCRIPTION OF PROCEDURE: Satisfactory sedation was given. The ear was prepped and draped in usual sterile fashion. 1% xylocaine with 1:100,000 epinephrine was used to inject a regional field block of the external ear by postauricular injection as well as an anterior injection from the tragus superiorly. Local was also placed directly underneath the skin in the region of the auricle and then the helix for good anesthesia purposes. It was felt the most rapid way to deal with this tumor because of the patient's age and medical condition would be to do a simple wedge excision and closure. With the marking pen tension law were drawn such to allow a 1 cm margin of healthy-appearing skin on either side of the ulcerative lesion of the helix. A needle was used to create a apex of the triangle that would be cut out and the needle was sucked through the ear so emerged posteriorly so tension law could be drawn on the posterior side of the ear to match those on the anterior side of the ear. With a #15 blade the lesion was removed by creating a wedge of healthy tissue around the lesion cutting through cartilage down to the needle and puncture wound which I used as a marker for the apex of the triangle. Next, some of the cartilage that was underneath the skin of the edges was removed to allow better apposition of the skin edges. Hemostasis was achieved needle cautery and the incision was then closed using first a #3-0 chromic suture to approximate the cartilage of the helix. Then, a #5-0 nylon suture was used to approximate the skin of the helix to get a good reconstruction of the helical fold. Then, several more chromic sutures were placed through the mucoperichondrium more centrally towards the apex of the incision to approximate the two edges of the wound that had been created. The skin was then closed continuously both on the posterior and anterior aspect of the ear with #5-0 nylon suture. Ointment was applied to the wound, then a standard mastoid type dressing was used for compression purposes and fashion to the patient's head. He tolerated this procedure well, was sent to recovery in satisfactory condition. He will be seen back in the office in 5 days.
== END 2019-04-12 16:05 | disposition home or self-care (01) ==
LOC: M SDC 10:58
PROVIDERS: ATTEND Specialist
DX: C44.222 Squamous cell carcinoma of skin of right ear and external auricular canal (principal); I10 Essential (primary) hypertension; I35.0 Nonrheumatic aortic (valve) stenosis; E78.00 Pure hypercholesterolemia, unspecified; Z91.040 Latex allergy status; Z91.048 Other nonmedicinal substance allergy status; Z79.899 Other long term (current) drug therapy; Z79.01 Long term (current) use of anticoagulants; Z86.73 Personal history of transient ischemic attack (TIA), and cerebral infarction without residual deficits
CPT/HCPCS: 11644; 12052; 36415; 84132; 88305; J1100; J2405; J3010

== ENCOUNTER → 2019-04-27 | Outpatient (REF) | payer MEDICARE ==
[~2019-04-27] MED LIST changes: -LIDOCAINE 1% MDV 20ML VIAL SQ PRN; -LR 1,000 ML IV ONE; -MECL-68; +MECL1TAB31; -OMEP-172; +OMEP1CAP73
== END ==
LOC: M LAB REF 19:11
PROVIDERS: ATTEND Dermatology
DX: D36.7 Benign neoplasm of other specified sites (principal)

== ENCOUNTER → 2019-05-27 | Outpatient (REF) ==
[2019-05-27 12:52] LABS: HEMATOCRIT 47.9 % (42.0-52.0); MEAN CORPUSCULAR HEMOGLOBIN 31.7 pg (27.0-33.0); MEAN CORPUSCULAR HGB CONC 31.3 g/dl (32.0-36.5); MEAN CORPUSCULAR VOLUME 101.3 fl (80.0-96.0); PLATELET COUNT, AUTOMATED 155 10^3/uL (150-450); RED BLOOD COUNT 4.73 10^6/uL (4.30-6.10)
[2019-05-27 13:36] LABS: ALBUMIN 3.5 GM/DL (3.2-5.2); CALCIUM LEVEL 8.8 MG/DL (8.8-10.2); CREATININE FOR GFR 1.39 MG/DL (0.70-1.30); GLOMERULAR FILTRATION RATE 51.2 (>35); POTASSIUM SERUM 4.1 MEQ/L (3.5-5.1); THYROID STIMULATING HORMONE 1.66 uIU/ML (0.358-3.740); TOTAL PROTEIN 7.4 GM/DL (6.4-8.2)
== END ==
PROVIDERS: ATTEND Nurse Practitioner Adult Health
DX: I50.9 Heart failure, unspecified (principal)

== ENCOUNTER → 2019-06-14 | Outpatient (REF) | payer MEDICARE | LOC: M LAB REF 14:37 | PROVIDERS: ATTEND Dermatology | DX: C44.01 Basal cell carcinoma of skin of lip (principal); L73.8 Other specified follicular disorders ==

== ENCOUNTER → 2019-08-24 | Outpatient (REF) ==
[2019-08-24 11:53] LABS: HEMATOCRIT 40.3 % (42.0-52.0); HEMOGLOBIN 13.3 g/dl (13.5-17.5); MEAN CORPUSCULAR HEMOGLOBIN 32.2 pg (27.0-33.0); MEAN CORPUSCULAR VOLUME 97.6 fl (80.0-96.0); PLATELET COUNT, AUTOMATED 132 10^3/uL (150-450); RED BLOOD COUNT 4.13 10^6/uL (4.30-6.10); WHITE BLOOD COUNT 4.5 10^3/uL (4.0-10.0)
[2019-08-24 12:25] LABS: ALBUMIN 2.9 GM/DL (3.2-5.2); BILIRUBIN,TOTAL 0.9 MG/DL (0.2-1.0); CALCIUM LEVEL 8.2 MG/DL (8.8-10.2); CREATININE FOR GFR 1.35 MG/DL (0.70-1.30); POTASSIUM SERUM 3.9 MEQ/L (3.5-5.1); THYROID STIMULATING HORMONE 1.27 uIU/ML (0.358-3.740); TOTAL PROTEIN 6.1 GM/DL (6.4-8.2)
== END ==
PROVIDERS: ATTEND Nurse Practitioner Adult Health
DX: E03.9 Hypothyroidism, unspecified (principal)